=== PATIENT | male | born 1965 | race Caucasian/White ===

== ENCOUNTER 2017-07-21 09:08 | Day surgery (SDC) | payer MEDICAID, SELFPAY ==
[2017-07-21 09:24] VITALS: BP 127/81; PULSE 65; RESP 16; TEMP 36.8; O2SAT 97; BMI 31.4
--- NOTE | 2017-07-21 10:10 | RAD_ITS ---
XR Hip Unilateral with Pelvis when performed; 1 View INDICATION: RIGHT HIP INJECTION COMPARISON: None TECHNIQUE: 2 fluoroscopic views of a hip in frontal projection FINDINGS: A needle is seen in place and contrast material has been administered into the hip joint. Please see operative report for detail. RAD/Inj/Asp Sunny Jt Should/Hip/Knee IMPRESSION: Intraoperative fluoroscopy for image guidance. 6.8 seconds of fluoroscopy were used. at 0050 Reported and signed by: Radha Bethea MD Electronically Signed: Radha Bethea MD at 23:49 EST Tel , Service support ,
[2017-07-21] MEDS: Bupivacaine 0.25% 30 ML Vial (10:14)
[2017-07-21] MEDS: MethylPREDNISolone Acetate 80 MG/ML Vial (10:14)
[2017-07-21 10:24] VITALS: BP 111/71; BP 127/81; PULSE 65; RESP 16; TEMP 36.9; O2SAT 95
[2017-07-21 10:30] VITALS: BP 118/80; BP 127/81; PULSE 58; RESP 16; O2SAT 97
[2017-07-21 10:35] VITALS: BP 102/76; BP 127/81; PULSE 55; RESP 16; O2SAT 98
[2017-07-21 10:40] VITALS: BP 121/82; BP 127/81; PULSE 51; RESP 16; TEMP 36.8; O2SAT 97
[2017-07-21 11:29] VITALS: BP 127/81
--- NOTE | 2017-07-21 15:41 | OP.PCM_ITS ---
Problem List (1) Primary osteoarthritis of right hip Status: Chronic Report of Operation Date of Procedure: 07/21/17 Pre-Operative Diagnosis: Osteoarthritis of the right hip Post-Operative Diagnosis: Osteoarthritis of the right hip Surgery/Procedure Performed:: Right hip intra-articular steroid injection under fluoroscopy guidance Description of Surgical Findings:: PROCEDURE: Right hip intra-articular steroid injection under fluoroscopy guidance PREOPERATIVE DIAGNOSIS: Osteoarthritis of the right hip POSTOPERATIVE DIAGNOSIS: Osteoarthritis of the right hip ANESTHESIA: MAC COMPLICATIONS: None BLOOD LOSS: Minimal PROCEDURE IN DETAIL: History and physical today was reviewed. Risks and benefits of the procedure were explained. The patient understood, agreed to our procedure, and informed consent was obtained. IV inserted per routine protocol. The patient was taken to the operating room, placed in a supine position the right hip area was prepped and draped in a sterile fashion using iodine ?3 under fluoroscopy guidance AP view of the right hip joint was visualized the skin and subcutaneous tissue and size approximately 3 cc of 1% lidocaine using a 25- gauge regular needle approximately 3 cm cephalad to the right greater trochanter under direct visualization fluoroscopy using a 22-gauge 3-1/2 inch spinal needle the needle passed through the skin under direct visualization fluoroscopy in a lateral view tip of the needle was then maneuver and directed towards the superiormost aspect of the hip joint once the tip of the needle was at the vicinity of the joint after negative aspiration for blood positive aspiration of synovial fluid a total of 1 cc of contrast were injected to confirm correct placement of the needle as well as halo spread around the hip joint after repeated negative aspiration and confirmation AP as well as oblique view a total of 10 cc of preservative-free 0.25% Marcaine with 80 mg of Depo- Medrol was injected easily. The needles were then removed intact. The patient experienced no signs or symptoms intrathecal, intravascular injection. The patient experienced no paraesthesia. The procedure was completed without any apparent difficult, any complication. The patient appeared to tolerate well. ASSESSMENT AND PLAN: This is a 52-year-old male with osteoarthritis of the right hip status post right hip intra-articular steroid injection under fluoroscopy guidance. The patient will continue his current medications. The patient will follow in approximately 2 weeks for reevaluation.
== END 2017-07-21 11:30 | disposition home or self-care (01) ==
LOC: SDC 09:09 → AC 09:09
PROVIDERS: Visit Provider Anesthesiology Pain Medicine
PROC: 3E0U3GC Introduction of Other Therapeutic Substance into Joints, Percutaneous Approach (ICD-10-PCS; CPT 20610; principal; 2017-07-21 10:05)
DX: M16.11 Unilateral primary osteoarthritis, right hip (principal); M51.16 Intervertebral disc disorders with radiculopathy, lumbar region; M47.26 Other spondylosis with radiculopathy, lumbar region; M51.36 Other intervertebral disc degeneration, lumbar region; M43.16 Spondylolisthesis, lumbar region; M51.34 Other intervertebral disc degeneration, thoracic region; M47.817 Spondylosis without myelopathy or radiculopathy, lumbosacral region; M47.894 Other spondylosis, thoracic region; M50.30 Other cervical disc degeneration, unspecified cervical region; M47.812 Spondylosis without myelopathy or radiculopathy, cervical region; M79.1 Myalgia; E78.00 Pure hypercholesterolemia, unspecified; K21.9 Gastro-esophageal reflux disease without esophagitis; Z79.82 Long term (current) use of aspirin; Z79.891 Long term (current) use of opiate analgesic; Z79.899 Other long term (current) drug therapy; Z87.891 Personal history of nicotine dependence
CPT/HCPCS: 20610; 76000; 77002; J7120

== ENCOUNTER → 2017-11-05 10:20 | Outpatient (CLI) | payer MEDICAID, SELFPAY ==
--- NOTE | 2017-11-05 10:20 | DT_ITS ---
This patient was seen during an EMR downtime November 03, 2017 - November 10, 2017. This patient may have a combination of paper and electronic documentation or all paper documentation. All documentation is viewable within the e-chart portion of [employer] for each patient visit.
--- NOTE | 2017-11-05 10:30 | RAD_ITS ---
STUDY: X-RAY - RIGHT SHOULDER REASON FOR EXAM: Pain, no specific injury. TECHNIQUE: 4 view(s) of the shoulder. COMPARISON: None. FINDINGS: Normal glenohumeral articulation. There is mild acromioclavicular arthrosis. Normal acromion. Normal humeral head and visualized proximal humerus. There is calcific tendinitis on the AP view. Normal visualized pulmonary apex. RAD/Shoulder min 2 Views IMPRESSION: Calcific tendinitis. Mild acromioclavicular arthrosis. Electronically Signed: Kael Robledo MD at 10:32 EDT Tel , Service support ,
== END ==
PROVIDERS: Visit Provider Nurse Practitioner Family
DX: M25.511 Pain in right shoulder (principal)
CPT/HCPCS: 73030

== ENCOUNTER → 2018-02-11 12:06 | Outpatient (CLI) | payer MEDICAID, SELFPAY ==
--- NOTE | 2018-02-11 12:21 | MRI_ITS ---
STUDY: MRI RIGHT SHOULDER REASON FOR EXAM: Male, 52 years old. Right shoulder pain. TECHNIQUE: Standardized fat and water weighted pulse sequences were obtained in all 3 orthogonal planes. COMPARISON: None. FINDINGS: There is supraspinatus tendinosis with tendon attrition, but without a demonstrated supraspinatus tendon tear. There is a chronic full-thickness tear of the infraspinatus tendon measuring approximately 1.2 x 1.5 cm. Normal subscapularis tendon. Normal teres minor tendon. Normal supraspinatus muscle. There is greater than a 50% fatty muscular atrophy of the infraspinatus muscle (Goutallier Stage IV). Normal subscapularis muscle. Normal teres minor muscle. Normal glenohumeral articulation. Normal humeral head and visualized proximal humerus. Normal biceps labral complex. Normal intracapsular long biceps tendon. Normal labrum. Normal capsulo- ligamentous complex. Normal rotator interval. There is severe hypertrophic osteoarthritis of the acromioclavicular articulation with indentation of the subjacent supraspinatus musculotendinous junction. There is a Type II morphology (curved), with a neutral orientation. There is no subacromial-subdeltoid bursal fluid. Normal visualized coracohumeral and coracoacromial ligaments. Normal quadrilateral space. Normal axillary space. Normal deltoid muscle. Normal trapezius muscle. MRI/Upper Ext Joint Only(Routine) IMPRESSION: 1. Supraspinatus tendinosis with attrition. 2. Chronic full thickness infraspinatus tendon tear with muscle atrophy. 3. Hypertrophic acromioclavicular osteoarthrosis. Electronically Signed: Hannah Priest MD at 16:58 EDT Tel , Service support ,
== END ==
PROVIDERS: Visit Provider Nurse Practitioner Family
DX: M25.511 Pain in right shoulder (principal)
CPT/HCPCS: 73221

== ENCOUNTER → 2018-03-31 13:58 | Outpatient (CLI) | payer MEDICAID, SELFPAY ==
--- NOTE | 2018-03-31 14:00 | RAD_ITS ---
STUDY: X-RAY - RIGHT SHOULDER REASON FOR EXAM: Shoulder pain. TECHNIQUE: 3 view(s) of the shoulder. COMPARISON: Radiographs 11/05/2017. FINDINGS: Normal glenohumeral articulation. There is mild acromioclavicular arthrosis. Normal acromion. Normal humeral head and visualized proximal humerus. There is calcific tendinitis without interval change. Normal visualized pulmonary apex. RAD/Shoulder min 2 Views IMPRESSION: Calcific tendinitis without interval change. Mild acromioclavicular arthrosis. Electronically Signed: Kael Robledo MD at 14:45 EDT Tel , Service support ,
== END ==
PROVIDERS: Referring Provider Orthopaedic Surgery; Visit Provider Orthopaedic Surgery
DX: M25.511 Pain in right shoulder (principal)
CPT/HCPCS: 73030

== ENCOUNTER 2018-05-27 16:24 | Emergency (ER) | payer MEDICAID, SELFPAY ==
[2018-05-27 16:25] VITALS: BP 131/81; PULSE 86; RESP 16; TEMP 36.1; O2SAT 97; BMI 31.7
--- NOTE | 2018-05-27 16:43 | ED.RN ---
PT STATES THAT HE IS HAVING CP, EKG OBTAINED IN TRIAGE.
--- NOTE | 2018-05-27 17:53 | EKG12_ITS ---
Test Reason : CP Blood Pressure : / mmHG Vent. Rate : 060 BPM Atrial Rate : 060 BPM P-R Int : 132 ms QRS Dur : 086 ms QT Int : 392 ms P-R-T Axes : 039 -19 042 degrees QTc Int : 392 ms Normal sinus rhythm Normal ECG Confirmed by AIDA HAYNES, ITZEL ([id number]), field map editor BRIDGET VARGHESE ([id number]) on 06/01/2018 1:08:06 PM Referred By: SKINNY Confirmed By:ITZEL PARRA MD
--- NOTE | 2018-05-27 17:53 | CT_ITS ---
STUDY: CT ABDOMEN AND PELVIS WITH CONTRAST REASON FOR EXAM: Male, 53 years old. Left abdominal pain RADIATION DOSAGE (If Supplied By Facility): CTDIvol = ( 16.61 ) mGy, DLP = ( 1247.70 ) mGycm TECHNIQUE: Transaxial images were obtained from the dome of the diaphragm to the symphysis pubis without oral contrast. 100ml ml of Isovue 300 contrast was administered. Sagittal and coronal images were reconstructed. Individualized dose optimization techniques were used for this CT. COMPARISON: None. FINDINGS: The visualized lung bases are unremarkable. The visualized portions of the heart are within normal limits. Multiple subcentimeter cysts are noted in the liver. Normal gallbladder and extrahepatic biliary system. Normal spleen. Normal pancreas. Normal bilateral adrenal glands. Up to 3 mm nonobstructive stones in the right kidney. Up to 4 mm nonobstructive upper pole stones are noted in the left kidney. Normal visualized stomach. Normal small intestine. Fecal retention in the colon. The appendix is visualized and appears normal. Normal abdominal aorta. Normal inferior vena cava. Subcentimeter nodes in the retroperitoneum. Normal urinary bladder. Fatty density at the right inguinal canal. Normal abdominal wall. Mild degenerative vertebral changes. Grade 1 spondylolisthesis and bulging disc at L3-4. Spondylolysis at L3. CT/Abdomen/Pelvis WITH Contrast IMPRESSION: Probable nonobstructing renal stones bilaterally. Fecal retention in the colon. Subcentimeter retroperitoneal nodes. Fatty density at the right inguinal canal. Hepatic cysts. Electronically Signed: Patric Main DO at 20:31 EST Tel [phone], Service support ,
--- NOTE | 2018-05-27 17:55 | ED.VISSUMM ---
- ER Visit Summary Date of Service: 05/27/18 Chief Complaint: Abdominal pain History of Present Illness: The patient is a 53 M who presents for abdominal pain for 2 months. Patient has been having abdominal pain in the left upper quadrant that radiates into the left chest. It is aching and is gradually worsened. For the last 2 weeks it is acutely worsened. Patient denies fever, vomiting, nausea, diarrhea or urinary symptoms. He has felt woozy for 1 month and was seen in pulmonary twice, diagnosed with a sinus infection, and has had 2 rounds of antibiotics and steroids without improvement. He felt woozy since this morning, stating he is having difficulty walking down the [place]. He is on medications for chronic back pain. Has a history of heart catheterization with a 40% lesion. Physical Examination: Vital signs: afebrile, hemodynamically stable, no hypoxia on room air General: well nourished, well developed, in no distress Skin: warm, dry, no rash, no pallor HEENT: normocephalic and atraumatic; PERRL, EOMI, moist mucous membranes Cardiovascular: regular rate and rhythm without murmurs, no peripheral edema, 2+ pulses all distal extremities Respiratory: No increased work of breathing, lungs are clear to auscultation bilaterally, no rales, rhonchi or wheezing no chest wall tenderness, no rash Abdominal: Abdomen is soft, tender in the left upper quadrant with normoactive bowel sounds, no guarding or rebound, no masses MSK: Moves all extremities, no deformities, normal strength Neuro: Awake and alert, oriented ?4. No facial droop, sensation and motor function intact and symmetric Test Results: Abnormal Lab Results 05/27/18 05/27/18 05/27/18 17:55 17:55 18:10 WBC 7.8 RBC 5.05 Hgb 14.9 Hct 45.2 MCV 89.5 MCH 29.5 MCHC 33.0 RDW 16.1 H RDW Differential 52.0 H Plt Count 191 MPV 10.8 Immature Gran % (Auto) 0.400 Neut % (Auto) 66.6 Lymph % (Auto) 18.7 L Thurston % (Auto) 11.9 H Eos % (Auto) 2.1 Baso % (Auto) 0.3 Absolute Neuts (auto) 5.2 Absolute Lymphs (auto) 1.45 Total Counted Not Reportable Sodium 145 Potassium 4.1 Chloride 111 H Carbon Dioxide 28.0 Anion Gap 6 BUN 29 H Creatinine 0.90 Estim Creat Clear Calc 97.10 Est GFR (MDRD) Af Amer 114 Est GFR (MDRD) Non-Af 94 BUN/Creatinine Ratio 32.1 H Glucose 109 H Lactic Acid Calcium 8.1 L Total Bilirubin 0.30 AST 18 ALT 27 Alkaline Phosphatase 121 H Troponin I < 0.015 Total Protein 6.0 L Albumin 3.1 L Globulin 2.9 Albumin/Globulin Ratio 1.1 Lipase 177 Urine Color Yellow Urine Clarity Sl. Cloudy Urine pH 5.0 Ur Specific [place] 1.020 Urine Protein 15 H Urine Glucose (UA) Normal Urine Ketones Negative Urine Occult Blood 25 H Urine Nitrite Negative Urine Bilirubin Negative Urine Urobilinogen Normal Ur Leukocyte Esterase Negative Urine RBC 5-10 SEEN Urine WBC 0-5 SEEN Ur Squamous Epith Cells 0-5 SEEN Urine Bacteria 0 SEEN Urine Mucus 1+ 05/27/18 18:18 WBC RBC Hgb Hct MCV MCH MCHC RDW RDW Differential Plt Count MPV Immature Gran % (Auto) Neut % (Auto) Lymph % (Auto) Thurston % (Auto) Eos % (Auto) Baso % (Auto) Absolute Neuts (auto) Absolute Lymphs (auto) Total Counted Sodium Potassium Chloride Carbon Dioxide Anion Gap BUN Creatinine Estim Creat Clear Calc Est GFR (MDRD) Af Amer Est GFR (MDRD) Non-Af BUN/Creatinine Ratio Glucose Lactic Acid 1.0 Calcium Total Bilirubin AST ALT Alkaline Phosphatase Troponin I Total Protein Albumin Globulin Albumin/Globulin Ratio Lipase Urine Color Urine Clarity Urine pH Ur Specific [place] Urine Protein Urine Glucose (UA) Urine Ketones Urine Occult Blood Urine Nitrite Urine Bilirubin Urine Urobilinogen Ur Leukocyte Esterase Urine RBC Urine WBC Ur Squamous Epith Cells Urine Bacteria Urine Mucus Clinical Impression(s) from Imaging Studies Abdomen/Pelvis CT 05/27/18 17:53 IMPRESSION: Probable nonobstructing renal stones bilaterally. Fecal retention in the colon. Subcentimeter retroperitoneal nodes. Fatty density at the right inguinal canal. Hepatic cysts. Electronically Signed: Patric Main DO at 20:31 EST Tel [phone], Service support , Medications Given Discontinued Medications Sodium Chloride () 1,000 mls @ 1,000 mls/hr IV .Q1H ONE Stop: 05/27/18 18:52 Last Admin: 05/27/18 18:19 Dose: 1,000 mls/hr Emergency Department Course and Treatment: Patient was offered and declined pain medications. He presents for evaluation of acute worsening of chronic abdominal pain. Chest pain workup was included since patient states his pain is radiating into the left chest. EKG showed a sinus rhythm with no ischemia or ectopy. Troponin negative. Patient's symptoms have been going on for 2 months, worse for 3 days, thus if this were cardiac I would expect an elevation of the troponin or EKG changes. The patient had no leukocytosis. No electrolyte derangements, hepatic dysfunction or elevated lipase. Patient did have mild dehydration. Urine was negative for infection. Lactate normal. CT the abdomen and pelvis was performed that was remarkable for fecal retention. Otherwise no acute process noted that would explain patient's symptoms. Patient continued to have symptoms, and was offered a 3 hr EKG and troponin rule-out. Patient declined further lab work. A repeat EKG was unchanged from the initial one. We discussed a bowel regimen for the constipation, and patient declined any prescriptions for constipation. Patient has no findings that are concerning for an acute process that would require further emergent evaluation or admission. Patient given follow-up with a primary care provider. Discharged home. Treatment Plan: [] Disposition: [] Impression: Acute on chronic abdominal pain, constipation This note was generated with [employer] dictation software. It may contain incorrect words, spelling, and punctuation that were not noted in review of the chart prior to signing ED Disposition - Plan for ED Patient: Disposition: Home or Assisted Living Chief Complaint: Abd Pain Instructions: ED Constipation, ED Abdominal Pain Unkn Cause Male Referrals: Joe Pruitt MD [STAFF PHYSICIAN] - As soon as possible Additional Instructions: Please follow-up with a primary care doctor for further evaluation of your ongoing abdominal pain. Your scan of your abdomen did show constipation. You were offered a bowel regimen and stated you had one at home already. Please use the stool softener and laxative at home to help with constipation. Miralax is a good option. If you have any worsening of your condition or any new concerning symptoms, please return immediately to the emergency department for another evaluation.
[2018-05-27] MEDS: 0.9% Normal Saline 1,000 ML 1000 ML IV (18:19)
[2018-05-27 18:22] LABS: Bacteria 0 SEEN /hpf (None Seen)
[2018-05-27 18:27] LABS: Color, Urine Yellow (Yellow); Glucose, Dipstick Normal (Normal); Ketone-Dipstick Negative (Negative); Leukocyte Esterase-Dipstick Negative /ul (Negative); Nitrite-Dipstick Negative (Negative); Occult Blood-Urine 25 /ul (Negative); Protein-Dipstick 15 mg/dl (Negative); Urine Bilirubin Dipstick Negative (Negative); Urine Clarity Sl. Cloudy (Clear); Urine Urobilinogen Normal (Normal)
[2018-05-27 18:33] LABS: Absolute Lymphocyte Count 1.45 X10^3/ul (0.83-4.51); Absolute Neutrophil Count 5.2 X10^3/uL (2.0-7.7); Basophil# 0.02 X10^3/uL; Basophil% 0.3 % (0-1); Eosinophil# 0.16 X10^3/uL; Eosinophils% 2.1 % (0-5); Hematocrit 45.2 % (40-54); Hemoglobin 14.9 g/dl (13.0-16.5); Lymphocyte # 1.45 X10^3/ul (4.0); Lymphocyte % 18.7 % (19-41); Mean Corpuscular Hgb 29.5 pg (27.0-32.0); Mean Corpuscular Volume 89.5 fL (80-94); Mean Platelet Vol. 10.8 fl (6.2-12.0); Monocyte# 0.92 X10^3/uL; Monocyte% 11.9 % (0-10); Neutrophil # 5.18 X10^3/uL (2.7-7.7); Neutrophil % 66.6 % (47-70); Platelet Count 191 K/mm3 (150-450); RBC Distribution Width CV 16.1 % (11.6-14.6); Red Blood Count 5.05 M/mm3 (4.6-6.2); White Blood Count 7.8 K/mm3 (4.4-11.0)
[2018-05-27 18:35] LABS: ALB/GLOB Ratio 1.1 RATIO (0.9-2.4); AST(SGOT) 18 U/L (15-37); Alanine Aminotransfer ALT/SGPT 27 U/L (16-61); Albumin, Serum 3.1 g/dL (3.2-5.0); Alkaline Phosphatase 121 U/L (45-117); Anion Gap 6 (5-15); BUN 29 mg/dL (7-18); BUN/Creat Ratio 32.1 RATIO (10-20); Calcium,Total 8.1 mg/dL (8.5-10.1); Chloride 111 mmol/L (98-107); EST Glomerular Filtration Rate 94 mL/min (>60); Est Glom Filt Rate - Afr Amer 114 mL/min (>60); Globulin 2.9 g/dL (2.2-4.2); Glucose 109 mg/dL (74-106); Lipase 177 U/L (73-393); Potassium 4.1 mmol/L (3.5-5.1); Sodium Level 145 mmol/L (136-145)
[2018-05-27 18:37] LABS: Mucous, Urine 1+ /hpf (<or=2+); Red Blood Cells-Urine 5-10 SEEN /hpf (0-5); Squamous Epithelial Cells - UA 0-5 SEEN /hpf (0-5); White Blood Cells 0-5 SEEN /hpf (0-5)
[2018-05-27 18:37] LABS: POSITIVE COUNT NO; POSITIVE DIFFERENTIAL NO; POSITIVE MORPHOLOGY NO
[2018-05-27 19:11] VITALS: BP 138/98; PULSE 60; RESP 14; O2SAT 97
[2018-05-27 20:56] VITALS: BP 123/79; PULSE 65; RESP 21; O2SAT 94
--- NOTE | 2018-05-27 22:07 | EKG12_ITS ---
Test Reason : ABDOMINAL PAIN Blood Pressure : / mmHG Vent. Rate : 059 BPM Atrial Rate : 059 BPM P-R Int : 134 ms QRS Dur : 090 ms QT Int : 380 ms P-R-T Axes : 051 -19 043 degrees QTc Int : 376 ms Sinus bradycardia Otherwise normal ECG Confirmed by AIDA HAYNES, ITZEL ([id number]), supervising editor trailer BRIDGET VARGHESE ([id number]) on 06/01/2018 1:08:28 PM Referred By: HARRIET Confirmed By:ITZEL PARRA MD
[2018-05-27] MEDS: Ketorolac 30 MG/ML Syringe IV (22:14)
[2018-05-27 22:17] VITALS: BP 118/72; PULSE 60; RESP 18; O2SAT 97
--- NOTE | 2018-05-27 22:19 | ED.RN ---
PT REPORTS TO THIS RN THAT HE DOES NOT WANT TO HAVE A REPEAT TROPONIN. HE REPORTS I HAVE BEEN HERE A LONG TIME AND I AM READY TO LEAVE . PT AGREES TO REPEAT EKG. DR. BABB INFORMED THAT PT IS READY TO LEAVE. AWAITING PAPERWORK. PT AGREES TO TORADOL, SEE MAR.
--- NOTE | 2018-05-27 22:25 | ED.DEP ---
ED Disposition - Plan for ED Patient: Disposition: Home or Assisted Living Chief Complaint: Abd Pain Instructions: ED Abdominal Pain Unkn Cause Male, ED Constipation Referrals: Joe Pruitt MD [STAFF PHYSICIAN] - As soon as possible Additional Instructions: Please follow-up with a primary care doctor for further evaluation of your ongoing abdominal pain. Your scan of your abdomen did show constipation. You were offered a bowel regimen and stated you had one at home already. Please use the stool softener and laxative at home to help with constipation. Miralax is a good option. If you have any worsening of your condition or any new concerning symptoms, please return immediately to the emergency department for another evaluation.
[2018-05-27 22:32] VITALS: BP 125/77; PULSE 62; RESP 22; O2SAT 98
== END 2018-05-27 22:34 | disposition home or self-care (01) ==
PROVIDERS: Emergency Provider Emergency Medicine
DX: K59.00 Constipation, unspecified (principal); R10.12 Left upper quadrant pain; M54.9 Dorsalgia, unspecified; G89.29 Other chronic pain; E86.0 Dehydration; Z79.82 Long term (current) use of aspirin; Z79.899 Other long term (current) drug therapy
CPT/HCPCS: 74177; 80053; 81001; 83605; 83690; 84484; 85025; 93005; 96361; 96374; 99284; J7030; Q9967; A4216

== ENCOUNTER → 2018-08-19 09:54 | Outpatient (CLI) | payer MEDICAID, SELFPAY ==
[2018-07-06 15:28] VITALS: BMI 31.7
--- NOTE | 2018-08-19 09:59 | MRI_ITS ---
STUDY: MRI LUMBAR SPINE WITHOUT CONTRAST REASON FOR EXAM: Male, 53 years old. BACK AND LEFT LEG PAIN -- NKI, pain x 2 years, no prev lumbar surg, GB removed 08/17/18. TECHNIQUE: Standardized fat and water weighted pulse sequences were obtained in the sagittal and axial planes. COMPARISON: None FINDINGS: T12-L1: There is minimal disc space narrowing and endplates spondylosis. There is a small left paracentral extrusion with moderate left lateral recess narrowing. There is mild central canal stenosis. There is no foraminal stenosis. Normal lumbar lordosis. There is no substantial scoliosis. Normal conus medullaris that terminates at the L1 L1-2: There is minimal disc space narrowing and endplate spondylosis. There is no significant disc herniation, central canal or foraminal stenosis. L2-3: There is minimal disc space narrowing and endplate spondylosis. There is no significant disc herniation, central canal or foraminal stenosis. L3-4: There is moderate disc space narrowing and endplates spondylosis. There is severe facet arthropathy with 3 x 6 mm right anterior facet cyst. There is grade 1 anterolisthesis with disc bulging. Findings results in severe central canal stenosis, severe right and moderate left foraminal stenosis. L4-5: There is mild disc space narrowing and endplates spondylosis. There is a mild disc bulge and small left paracentral protrusion with mild left lateral recess narrowing. There is mild central canal stenosis. There is no foraminal stenosis. There is mild facet arthropathy L5-S1: There is moderate disc space narrowing and endplates spondylosis. There is a mild disc bulge asymmetric to the left with moderate left foraminal stenosis. There is no significant central canal or right foraminal stenosis. There is mild facet arthropathy Normal visualized sacral ala. Normal visualized paraspinous soft tissue structures. MRI/Spine Lumbar (Routine) IMPRESSION: T12/L1: Small left paracentral extrusion with moderate left lateral recess narrowing. L3/L4: Severe central canal stenosis. Small right anterior facet cyst. Grade 1 anterolisthesis. Severe right and moderate left foraminal stenosis. L5/S1: Moderate left foraminal stenosis. Electronically Signed: Letitia Alaniz MD at 9:52 EDT Tel , Service support ,
== END ==
PROVIDERS: Family Provider Nurse Practitioner Family; PCP Nurse Practitioner Family; Referring Provider Anesthesiology Pain Medicine; Visit Provider Anesthesiology Pain Medicine
DX: M54.5 Low back pain (principal); M79.605 Pain in left leg
CPT/HCPCS: 72148

== ENCOUNTER → 2018-09-03 16:14 | Outpatient (CLI) | payer MEDICAID, SELFPAY ==
[2018-09-03 13:50] VITALS: BMI 31.7
[2018-09-03 16:22] LABS: Bacteria 0 SEEN /hpf (None Seen); Red Blood Cells-Urine 0 SEEN /hpf (0-5)
[2018-09-03 16:35] LABS: Color, Urine Yellow (Yellow); Glucose, Dipstick Normal (Normal); Ketone-Dipstick Negative (Negative); Leukocyte Esterase-Dipstick 25 /ul (Negative); Nitrite-Dipstick Negative (Negative); Occult Blood-Urine Negative /ul (Negative); Protein-Dipstick Negative (Negative); Urine Bilirubin Dipstick Negative (Negative); Urine Clarity Clear (Clear); Urine Urobilinogen Normal (Normal)
[2018-09-03 17:00] LABS: Mucous, Urine 2+ /hpf (<or=2+); Squamous Epithelial Cells - UA 0-5 SEEN /hpf (0-5); White Blood Cells 0-5 SEEN /hpf (0-5)
== END ==
PROVIDERS: Referring Provider Physician Assistant; Visit Provider Physician Assistant
DX: R10.30 Lower abdominal pain, unspecified (principal); R30.0 Dysuria
CPT/HCPCS: 81001

== ENCOUNTER 2018-10-16 09:33 | Day surgery (SDC) | payer MEDICAID, SELFPAY ==
[2018-09-03 13:50] VITALS: BMI 31.7
[2018-10-06 14:20] VITALS: BMI 31.7
--- NOTE | 2018-10-06 16:18 | HP_ITS ---
Intake Vital Signs 10/06/18 Body Mass Index (BMI) 31.7 Intake Visit Reasons: RIGHT SHOULDER Allergies cyclobenzaprine [From Flexeril] Allergy (Mild, Verified 09/03/18 13:50) flushed acetaminophen [From Vicodin] Adverse Reaction (Verified 09/03/18 13:50) Nausea hydrocodone [From Vicodin] Adverse Reaction (Verified 09/03/18 13:50) Nausea Medications Meloxicam 15 mg PO DAILY 02/23/17 [History Confirmed 05/27/18] aspirin 81 mg chewable tablet 81 mg PO DAILY 06/05/17 [History Confirmed 05/27/18] gabapentin 300 mg capsule 300 mg PO TID 06/05/17 [History Confirmed 05/27/18] baclofen 10 mg tablet 10 mg PO TID 03/31/18 [History Confirmed 05/27/18] diclofenac 1 % topical gel 2 g TOPICAL ONCE 03/31/18 [History Confirmed 05/27/18] Omeprazole 40 mg PO DAILY 05/27/18 [History Confirmed 05/27/18] PFSH Medical History Heartburn (Acute) Surgical History h/o gallbladder removed (Acute) Heart Catheterization (Inactive) finger tendon (Inactive) Family History Father Heart disease Social History Smoking Status: Former smoker HPI RIGHT SHOULDER: Surgical H&P: Yes Details: Parts of this documentation were recorded by a scribe, this documentation accurately reflects the service provided and the decisions made by me, Desirae Marroquin, 10/06/18 1103. SHO VILLATORO is a 53 year old M here today to sign consent for right shoulder RTC repair. Patient states that he is still having pain 9/10 in his right shoulder and is having weakness and limited ROM. Patient has been using his arm and digging the past week. Patient had his gallbladder removed on 09/17/18. Wants to also talk about his left knee and possibly getting an injection. ROS Const Reports system reviewed and no additional complaints, except as docu Eyes Reports system reviewed and no additional complaints, except as docu ENT Reports system reviewed and no additional complaints, except as docu Card Reports system reviewed and no additional complaints, except as docu Resp Reports system reviewed and no additional complaints, except as docu GI Reports system reviewed and no additional complaints, except as docu Reports system reviewed and no additional complaints, except as docu Musc Reports as per HPI Skin/Breast Reports system reviewed and no additional complaints, except as docu Neuro Yes system reviewed and no additional complaints, except as docu Psych Reports system reviewed and no additional complaints, except as docu Endo Reports system reviewed and no additional complaints, except as docu Davide/Lymph Reports system reviewed and no additional complaints, except as docu Aller/Immun Reports system reviewed and no additional complaints, except as docu Ortho Exam Right Shoulder Testing: Positive TTP Biceps and empty can; negative TTP AC Joint, AROM-Forward Elevation 0-180 or AROM-External Rotation at side 0-60 Assessment & Plan Problems 1. Rotator cuff insufficiency of right shoulder M25.311 2. Subacromial impingement of right shoulder M75.41 3. Biceps tendonosis of right shoulder M67.911 Plan Reviewed the risk of infection with an injection too close to surgery, we can do the knee injection three weeks post shoulder surgery. Reviewed the pre-operative plans with the patient. Risks and benefits of the procedure were fully explained, including but not limited to infection, neurovascular injury, continued pain, arthritis, stiffness, need for further surgery, re-injury, DVT, PE, general risks of anesthesia, and loss of limb or life. The patient understands all the risks and does wish to proceed with written consent. Follow up post op or sooner if pain, swelling, numbness or associated symptoms, or concerns develop. All questions answered. Patient in agreement of plan. Coding Level of Care Code Off vis,est,level 4 Diagnoses Rotator cuff insufficiency of right shoulder M25.311 Subacromial impingement of right shoulder M75.41 Biceps tendonosis of right shoulder M67.911 10/06/18 2188 <Electronically signed by Desirae Marroquin DO> Date Desirae Marroquin DO I have re-examined the patient. There are no clinical changes since date of exam.
[2018-10-16] VITALS (9 sets, daily range): BP systolic 113–130; BP diastolic 70–90; PULSE 63–78; RESP 16–20; TEMP 35.6–37; O2SAT 92–98; BMI 32.1
--- NOTE | 2018-10-16 11:22 | VDLE_ITS ---
Reason For Study: LLE pain RIGHT LEFT CFV is compressible, spontaneous, phasic, GSV is normal. competent and demonstrates normal CFV is compressible, spontaneous, phasic, augmentation. competent, and demonstrates normal Procedure augmentation. Exam performed portable in AC Dept. FV is compressible, spontaneous, phasic, The exam was diagnostic. competent and demonstrates normal A preliminary report was called and/or faxed augmentation. to Dr. Marroquin and RN/AC. POP V is compressible, spontaneous, phasic, competent and demonstrates normal augmentation. T/P Trunk is compressible. PTV is compressible. LT PerV is compressible. Interpretation Summary There is no evidence of left lower extremity deep vein thrombosis. Left greater saphenous vein appears patent and compressible segmentally. Normal flow patterns right common femoral vein Ordering Physician: Desiare Marroquin Referring Physician: Erica Junior Performed By: Cindy Jenkins RDCS, RVT
--- NOTE | 2018-10-16 11:30 | TESH_PTH ---
PATIENT: SHO VILLATORO Jr. LOC: [facility] [place] U#:[id number] AGE/SX: 53/M ROOM: RE10/16/[address]: Dr. Desirae Marroquin DO : 1965 BED: DIS: 10/16/2018 SPEC #: [id number] RECD: 10/16/18 16:14 STATUS: ZEN DAWIT #: [id number] AMBROSE: 10/16/18 11:[address]: Desirae Marroquin DEPT: SURGICAL PATHOLOGY RECD BY: Jc Samano ENTERED: 10/19/18 10:24 SP TYPE: TENDON OTHR DR: Erica Junior, STOVE MOUNTER-C Tissues: Tendon and tendon sheath, NOS Procedures: Surgery Specimen Level III HEADER OPERATION: Arthroscopy, shoulder rotator cuff repair, subacromial decomp PRE-OP DIAGNOSIS: Rotator cuff insufficiency of right shoulder M25.311; subacromial impingement of right shoulder M75.41; biceps tendinosis of right shoulder M67.911 TISSUE SUBMITTED: Bicep tendon MICROSCOPIC DIAGNOSIS Bicep tendon, rotator cuff repair: Fibrotendinous tissue with focal degenerative change. CE:yeni 10/20/18 MICROSCOPIC DESCRIPTION Slides are reviewed. GROSS DESCRIPTION Received in fixative is one container labeled with the patient's name and designated biceps tendon. The specimen consists of elongated fragments of indurated light kinney soft tissue consistent with tendon measuring 4.5 x 1 x 0.2 cm. The specimen is sectioned and totally submitted in one cassette. / AM:yeni 10/19/18 TC:5 CPT: 82133
--- NOTE | 2018-10-16 12:40 | PCM.DC.ORTHO ---
Discharge Diet: No Restrictions - keep dressing in place and change on pod 5 and apply bandaids to incision sites, call with concerns, sling at all times unless showering, move hand as tolerated Discharge Activity: May Not Drive May shower in (days): 1 Ice area for (Minutes): 20 - Every hour while awake. Weight Bearing Status: Weight bearing as tolerated Keep extremity elevated above heart level: Operative Extremity Call your doctor if your incision/area has: Continuous Slow Oozing, Sudden Increased Bleeding, Increased Pain/ Swelling, Increased Redness, Foul Smelling Discharge Call your doctor if you observe: Fever of 101 or Higher, Coldness, Increased Pain, Numbness or Tingling, Change in Color, Calf discomfort Allergies/Adverse Reactions: Allergies cyclobenzaprine [From Flexeril] Allergy (Mild, Verified 10/07/18 08:47) flushed hydrocodone [From Vicodin] Adverse Reaction (Verified 10/07/18 08:47) Nausea Medications to take at Discharge Meloxicam 15 mg PO DAILY 02/23/17 aspirin 81 mg chewable tablet 81 mg PO PRN PRN 06/05/17 gabapentin 300 mg capsule 300 mg PO TID 06/05/17 baclofen 10 mg tablet 10 mg PO TID 03/31/18 diclofenac 1 % topical gel 2 g TOPICAL DAILY 03/31/18 Omeprazole 40 mg PO DAILY 05/27/18 Hydrocodone Bitart/Apap 5-325 [[place]ont 5MG-325MG] 1 - 2 tablet PO Q6H PRN PRN 5 Days #40 tablet 10/16/18 The following prescriptions were given: Hydrocodone Bitart/Apap 5-325 [Be[place]ont 5MG-325MG] 1 - 2 tablet PO Q6H PRN PRN 5 Days #40 tablet PRN Reason: Pain Primary Care Physician: Erica Juniro, SAMUEL-C [Primary Care Provider] - Test Results: Test results from this visit will be discussed in further detail at your follow-up appointment, if applicable. Please Follow Up With: Desirae Marroquin, - [phone]
--- NOTE | 2018-10-16 12:42 | PCM.OPRPT ---
Report of Operation Date of Procedure: 10/16/18 Pre-Operative Diagnosis: right shoulder rotator cuff tear, impingment syndrome, biceps tendinosis Post-Operative Diagnosis: same Surgery/Procedure Performed:: sars, rc repair, sad/acrmioplasty, open subpec biceps tenodesis senior it auditor: Franco Fletcher Type of Anesthesia:: General/Regional Anesthesiologist: Mio Franklin Estimated Blood Loss (mL): none Fluids Replaced: see chart Description of Procedure: Preop note Patient with right shoulder pain MRI confirms rotator cuff tear biceps tendinosis and impingement. Patient failed conservative treatment and like to proceed with right shoulder arthroscopy repair is indicated. Risks benefits and alternatives surgery discussed with patient. Risks including but not limited to blood loss, blood clot, infection, neurovascular, failure procedure, loss of life and loss of limb. Patient is aware like to proceed with right shoulder arthroscopy repair is indicated. Operative note Patient seen and examined preoperative holding area right shoulder was marked. Patient brought to the operating placed supine on the operating table. Signing, anesthesia, antibiotics were administered. The right arm was prepped and draped in usual sterile fashion after. After patient was placed in beachchair. SCDs placed on his bilateral lower extremity and all bony prominences well-padded. Please note that we did check blood pressure long-term through. Beachchair positioning it was stable throughout. Again the right arm was prepped and draped in usual sterile fashion. We marked out our bony landmarks for portal placement. Timeout was performed. We then insufflated the glenohumeral joint from the posterior aspect had good return from the spinal needle. Created our in our posterior portal with 11 blade. Begin our diagnostic arthroscopy. The rotator cuff had a liftoff sign on the posterior aspect at that where the infraspinatus and supraspinatus met just on the footprint. The subscap was intact. We then created an anterior portal under direct visualization. We probed the biceps was quite thickened and hyperemic after probing into the joint. We truncated the biceps tendon at its insertion. We gently shaved back to the insertion point to a stable rim. We turned back some of the labrum that was the posterior aspect is a little bit of frayed as well. There are no loose bodies in the inferior recess. We then moved to the subacromial space. Created a lateral portal under direct visualization. Extensive bursitis throughout his entire shoulder muscle most prominent in the posterior recess as well. We were able to palpate some thinning of the tissue laterally he has had about a 50% tear on the bursal side and also extending down to a recessed tear of the infraspinatus that was somewhat attached still on the lateral greater tuberosity but was unstable to probing. Had a U-shaped pattern to the tear was which was completed debrided back any degenerative rotator cuff. We then placed 255 bio composite suture tacks in the medial row so these sequentially anterior to posterior then placed 2 Lateral Row 4.75 swivel locks in standard technique we had good coverage of the footprint at this point please note that prior to placing her to bio composites we did bur to a good bed for healing. We then again after placing her lateral row had good coverage of the footprint there were no dog ears we then irrigated the shoulder with copious muscle sterile saline. We moved to our open subpectoral tenodesis. We spoke resterilized the shoulder waited the allotted minute then used a 15 blade to cut the skin tenotomies to dissect down to the biceps tendon which was then brought out of the incision truncated to its appropriate length whipstitched the and sent the cut and to pathology for further evaluation. We then drilled unicortical he just under the sub-pec we had placed the limbs of the whipstitched tendon throughout the Arthrex pec button this was after drilling and accordingly the pec button was then flipped inside the medullary canal of the humerus. We then used a free needle to sew the limbs to the periosteum down through the biceps tendon. For reinforcement. We then irrigated the incision with copious amounts of sterile saline. The incision was closed with 2 deep 2-0 Vicryl in a running 4-0 Monocryl and the portals were closed with interrupted nylon stitches. The patient tolerated procedure well no comp occasions transferred recovery room in stable condition. Postoperative note Discussed with Pain medication sent to Rufina Millan We will give pictures to patient in 2 weeks Sling at all times Call with increased pain numbness tingling or further issues arise next This note was generated with [employer] dictation software. It may contain incorrect words, spelling, and punctuation that were not noted in checking the note before signing.
[2018-10-16] MEDS: Cefazolin 2 GM in 0.9% Normal Saline 100 ML IV (12:50)
[2018-10-16] MEDS: Mupirocin Ointment 22gm Tube 1 APPLIC (15:13)
== END 2018-10-16 17:48 | disposition home or self-care (01) ==
LOC: SDC 09:35 → AC 09:49
PROVIDERS: Family Provider Nurse Practitioner Family; PCP Nurse Practitioner Family; Referring Provider Orthopaedic Surgery; Visit Provider Orthopaedic Surgery
PROC: (CPT 29827; principal; 2018-10-16 11:10)
DX: M75.101 Unspecified rotator cuff tear or rupture of right shoulder, not specified as traumatic (principal); M75.41 Impingement syndrome of right shoulder; M25.311 Other instability, right shoulder; M67.911 Unspecified disorder of synovium and tendon, right shoulder; M79.605 Pain in left leg; E78.00 Pure hypercholesterolemia, unspecified; Z79.82 Long term (current) use of aspirin; Z79.899 Other long term (current) drug therapy; Z88.5 Allergy status to narcotic agent; Z87.891 Personal history of nicotine dependence
CPT/HCPCS: 23430; 29826; 29827; 64415; 88304; 93971; J7120; C1713; J2405

== ENCOUNTER → 2019-02-09 14:34 | Outpatient (CLI) | payer MEDICAID, SELFPAY ==
[2019-02-09 14:19] VITALS: BMI 32.1
--- NOTE | 2019-02-09 14:36 | RAD_ITS ---
STUDY: X-RAY - LUMBAR SPINE REASON FOR EXAM: Male, 53 years old. Back pain TECHNIQUE: 5 view(s) of the lumbar spine were obtained. COMPARISON: February 23, 2017 FINDINGS: Normal lumbar lordosis. There is no substantial scoliosis. Grade 1 spondylolisthesis at L3-4. Minimal retrolisthesis at L5-S1 There is narrowing of L3-4 and L5-S1 disc spaces with mild endplate spurring. No evidence for acute fracture or subluxation.. The soft tissue structures are unremarkable. There is interval progression of the degenerative change at L3-4 since prior study. RAD/L/S Spine Min 4 Views IMPRESSION: Moderate spondylosis with mild interval progression since prior study. No acute fracture or subluxation Electronically Signed: Charles Vicente MD at 23:01 EDT , Service support ,
--- NOTE | 2019-02-09 14:36 | RAD_ITS ---
STUDY: X-RAY - PELVIS AND RIGHT HIP REASON FOR EXAM: Male, 53 years old. Right hip pain, no injury TECHNIQUE: 3 views of the pelvis and hip. COMPARISON: Prior study of 06/05/2017 FINDINGS: There is a non-specific bowel gas pattern. Normal visualized soft tissue structures. Normal bilateral iliac wings, sacroiliac joints and visualized sacrum. Normal bilateral superior and inferior pubic rami. Normal pubic symphysis. Normal bilateral ischial tuberosities. The right hip appears within normal limits. There are mild degenerative changes of the left hip. RAD/HIP, UNI W/ Pelvis 2-3 Views IMPRESSION: The pelvis and right hip appear within normal limits. There are mild arthritic changes of the left hip. Electronically Signed: Noel Desir MD at 23:58 EDT , Service support ,
== END ==
PROVIDERS: Family Provider Nurse Practitioner Family; PCP Nurse Practitioner Family; Referring Provider Orthopaedic Surgery; Visit Provider Orthopaedic Surgery
DX: M16.11 Unilateral primary osteoarthritis, right hip (principal); M54.5 Low back pain
CPT/HCPCS: 72110; 73502

== ENCOUNTER → 2019-03-09 14:10 | Outpatient (CLI) | payer MEDICAID, SELFPAY ==
[2019-03-09 14:05] VITALS: BMI 32.1
--- NOTE | 2019-03-09 14:16 | RAD_ITS ---
STUDY: X-RAY - LEFT SHOULDER REASON FOR EXAM: Pain. TECHNIQUE: 4 view(s) of the shoulder. COMPARISON: None. FINDINGS: Normal glenohumeral articulation. There is acromioclavicular arthrosis. Normal acromion. Normal humeral head and visualized proximal humerus. The soft tissue structures are unremarkable. Normal visualized pulmonary apex. RAD/Shoulder min 2 Views IMPRESSION: Acromioclavicular arthrosis. Electronically Signed: Kael Robledo MD at 15:04 EDT Tel , Service support ,
== END ==
PROVIDERS: Family Provider Nurse Practitioner Family; PCP Nurse Practitioner Family; Referring Provider Orthopaedic Surgery; Visit Provider Orthopaedic Surgery
DX: M25.512 Pain in left shoulder (principal)
CPT/HCPCS: 73030

== ENCOUNTER → 2019-04-14 13:05 | Outpatient (CLI) | payer MEDICAID, SELFPAY ==
[2019-03-09 14:05] VITALS: BMI 32.1
--- NOTE | 2019-04-14 13:08 | MRI_ITS ---
STUDY: MRI LEFT SHOULDER REASON FOR EXAM: Pain and decreased range of motion for 1.5-2 months, no specific injury. TECHNIQUE: Standardized fat and water weighted pulse sequences were obtained in all 3 orthogonal planes. COMPARISON: Radiographs 03/09/2019. FINDINGS: There is supraspinatus tendinosis, a very small low-grade partial thickness tear of the articular surface of the distal supraspinatus tendon (T2 coronal image 10) measuring 0.2 cm in length, and a small intrasubstance partial thickness tear of the distal supraspinatus tendon at the greater tuberosity insertion (T2 coronal images 11, 12) measuring 0.6 cm in length. Normal infraspinatus tendon. Normal subscapularis tendon. Normal teres minor tendon. Normal supraspinatus muscle. There is a low-grade strain of the infraspinatus musculotendinous junction (T2 coronal images 5-17). Normal subscapularis muscle. Normal teres minor muscle. Normal glenohumeral articulation. There is a small cyst in the greater tuberosity. Normal biceps labral complex. Normal intracapsular long biceps tendon. Normal labrum. Normal capsulo- ligamentous complex. There is acromioclavicular arthrosis with mild hypertrophic changes effacing the subacromial fat (T2 sagittal image 7). There is a Type I morphology (flat undersurface), with a neutral orientation. There is a small volume of subacromial-subdeltoid bursal fluid (T2 coronal images 9-14). Normal visualized coracohumeral and coracoacromial ligaments. Normal deltoid muscle. Normal trapezius muscle. MRI/Upper Ext Joint Only(Routine) IMPRESSION: Very small low-grade articular partial thickness tear, small intrasubstance partial-thickness tear and tendinosis of the supraspinatus tendon. Low-grade strain of the infraspinatus musculotendinous junction. Acromioclavicular arthrosis. Mild subacromial-subdeltoid bursitis. Electronically Signed: Kael Robledo MD at 14:37 EST Tel , Service support ,
== END ==
PROVIDERS: Family Provider Nurse Practitioner Family; PCP Nurse Practitioner Family; Referring Provider Orthopaedic Surgery; Visit Provider Orthopaedic Surgery
DX: S46.002A Unspecified injury of muscle(s) and tendon(s) of the rotator cuff of left shoulder, initial encounter (principal); X58.XXXA Exposure to other specified factors, initial encounter; Y93.9 Activity, unspecified; Y92.9 Unspecified place or not applicable; Y99.9 Unspecified external cause status
CPT/HCPCS: 73221

== ENCOUNTER → 2019-06-08 15:29 | Outpatient (CLI) | payer MEDICAID, SELFPAY ==
[2019-06-08 15:24] VITALS: BMI 32.1
--- NOTE | 2019-06-08 15:30 | RAD_ITS ---
STUDY: X-RAY - RIGHT SHOULDER REASON FOR EXAM: Male, 54 years old. Postoperative evaluation. Pain. TECHNIQUE: 3 view(s) of the shoulder. COMPARISON: None. FINDINGS: Mild osteoarthrosis of the glenohumeral joint. AC joint arthrosis. Normal acromion. Normal humeral head and visualized proximal humerus. Calcific tendinitis. Normal visualized pulmonary apex. 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 Supraspinatus calcific tendinitis. Electronically Signed: Ibrahima Bal MD at 14:21 EST , Service support ,
--- NOTE | 2019-06-08 15:59 | RAD_ITS ---
STUDY: X-RAY - CERVICAL SPINE REASON FOR EXAM: Male, 54 years old. NECK AND RIGHT SHOULDER PAIN TECHNIQUE: 5 view(s) of the cervical spine were obtained. COMPARISON: None FINDINGS: There are degenerative changes of the anterior atlantoaxial articulation. Normal odontoid process. Normal cervical lordosis. There is mild, multi-level endplate spondylosis. There is narrowing of disc space at C5-C6 and C6-C7. Mild neural foraminal encroachment at C3-C4 and C5-C6. The soft tissue structures are unremarkable. There is no demonstrated fracture of the cervical spine. RAD/Cerv Spine 4 or 5 Views IMPRESSION: Spondylosis/degenerative disease with no acute fracture or subluxation. Electronically Signed: Jenny Sagastume MD at 3:08 EST , Service support ,
== END ==
PROVIDERS: Family Provider Nurse Practitioner Family; PCP Nurse Practitioner Family; Referring Provider Orthopaedic Surgery; Visit Provider Orthopaedic Surgery
DX: M25.511 Pain in right shoulder (principal); M79.601 Pain in right arm; M79.89 Other specified soft tissue disorders
CPT/HCPCS: 72050; 73030; 93971

== ENCOUNTER → 2019-06-08 16:18 | Outpatient (CLI) | payer MEDICAID, SELFPAY ==
[2019-06-08 15:24] VITALS: BMI 32.1
--- NOTE | 2019-06-08 16:20 | VDUE_ITS ---
Reason For Study: SWELLING Right Proximal Right jugular vein is spontaneous, widely patent, phasic, with no intraluminal echogenicity noted. Right subclavian vein is spontaneous, widely patent, phasic, with no intraluminal echogenicity noted. Right Lower Arm Right radial vein is compressible. Right ulnar vein is compressible. Right Arm Right axillary vein is spontaneous, patent, phasic, competent, compressible and demonstrates augmentation. Right brachial vein is compressible. Right cephalic vein is compressible. Right basilic vein is compressible. Interpretation Summary No evidence for acute deep venous thrombosis[right] upper extremity with patent and compressible cephalic and basilic veins. Ordering Physician: Desirae Marroquin Performed By: Eduar Lopez RVT ?
== END ==
PROVIDERS: Family Provider Nurse Practitioner Family; PCP Nurse Practitioner Family; Referring Provider Orthopaedic Surgery; Visit Provider Orthopaedic Surgery
DX: M79.601 Pain in right arm (principal); M79.89 Other specified soft tissue disorders
CPT/HCPCS: 93971

== ENCOUNTER → 2019-06-23 10:18 | Outpatient (CLI) | payer MEDICAID, SELFPAY ==
[2019-06-08 15:24] VITALS: BMI 32.1
--- NOTE | 2019-06-23 10:19 | MRI_ITS ---
STUDY: MRI RIGHT SHOULDER REASON FOR EXAM: Right shoulder pain for 3 months, no known reinjury, surgery 9 months ago. TECHNIQUE: Standardized fat and water weighted pulse sequences were obtained in all 3 orthogonal planes. COMPARISON: Radiographs 06/08/2019 and MRI images 02/11/2018. FINDINGS: There is a small full-thickness tear of the supraspinatus/infraspinatus tendon junction (T2 coronal images 9, 10) measuring approximately 0.5 x 0.7 cm (length x width) and postoperative scarring of the supraspinatus and infraspinatus tendons and an ossification in the distal supraspinatus tendon (proton density coronal image 14). Normal subscapularis tendon. Normal teres minor tendon. Normal supraspinatus muscle. There is atrophy with fat replacement of the majority of the infraspinatus muscle (T2 axial images 16-18) on the prior study. Normal subscapularis muscle. Normal teres minor muscle. There is a small glenohumeral joint effusion. There is a dislodged anchor in the subscapularis recess (T2 sagittal image 1). There are anchors in the greater tuberosity. Status post biceps tenotomy. Normal labrum. Normal capsulo- ligamentous complex. There is acromioclavicular arthrosis with mild hypertrophic changes (T2 sagittal image 3). There is a Type II morphology (curved), with a neutral orientation. There is subacromial-subdeltoid bursal fluid. There is a low-grade strain of the lateral deltoid muscle (T2 coronal images 6-8). Normal trapezius muscle. MRI/Upper Ext Joint Only(Routine) IMPRESSION: Small recurrent full-thickness tear of the supraspinatus/infraspinatus tendon junction with a dislodged anchor in the subscapularis recess. Atrophy of the infraspinatus muscle. Low-grade strain of the lateral deltoid muscle. Acromioclavicular arthrosis. Glenohumeral joint fluid communicating with the subacromial-subdeltoid bursa. Electronically Signed: Kael Robledo MD at 10:46 EST Tel , Service support ,
== END ==
PROVIDERS: PCP Nurse Practitioner Family; Referring Provider Orthopaedic Surgery; Visit Provider Orthopaedic Surgery
DX: M25.511 Pain in right shoulder (principal)
CPT/HCPCS: 73221

== ENCOUNTER → 2019-06-28 08:54 | Outpatient (CLI) | payer MEDICAID, SELFPAY ==
[2019-04-20 13:03] VITALS: BMI 32.1
[2019-06-08 15:24] VITALS: BMI 32.1
--- NOTE | 2019-06-28 08:58 | RAD_ITS ---
STUDY: X-RAY - ESOPHAGUS (BARIUM SWALLOW) WITH FLUOROSCOPY REASON FOR EXAM: Male, 54 years old. DYSPHAGIA X1 YEAR. TECHNIQUE: 27 view(s) of the esophagus were obtained following swallowing of barium. FLUOROSCOPY TIME (if supplied): (0:13) minutes/seconds COMPARISON: None. FINDINGS: There is no demonstrated esophageal foreign body. There is no demonstrated stricture or mucosal abnormality. Normal gastroesophageal junction, without a demonstrated hiatal hernia. The patient ingested a 12 mm tablet of barium without any difficulty. There is atherosclerotic tortuosity of the aortic arch and descending thoracic aorta. Normal visualized pulmonary parenchyma. Normal visualized osseous structures of the thorax. RAD/Esophagus Only IMPRESSION: Normal plain film x-ray examination (barium swallow) of the esophagus. Electronically Signed: Gregg Waldron, at 12:57 EST , Service support ,
== END ==
PROVIDERS: Family Provider Nurse Practitioner Family; PCP Nurse Practitioner Family; Referring Provider Otolaryngology; Visit Provider Otolaryngology
DX: R13.10 Dysphagia, unspecified (principal)
CPT/HCPCS: 74220

== ENCOUNTER 2020-01-03 08:44 | Day surgery (SDC) | payer MEDICAID, SELFPAY ==
[2019-07-08 09:17] VITALS: BMI 32.1
[2020-01-03 09:41] VITALS: BP 136/97; PULSE 76; RESP 18; TEMP 37; O2SAT 100; BMI 32.3
[2020-01-03] MEDS: Lactated Ringers 1,000 ML 100 ML IV (09:46)
--- NOTE | 2020-01-03 10:20 | RAD_ITS ---
STUDY: X-RAY - SACROILIAC JOINTS REASON FOR EXAM: Male, 54 years old. SI JOINT BLOCK TECHNIQUE: 2 coned-down intraoperative view(s) of the sacroiliac joints were obtained. COMPARISON: None. FINDINGS: Intraoperative imaging provided for left SI joint injection RAD/S-I Jts 3 or More Views IMPRESSION: Intraoperative imaging provided for left sacroiliac joint injection. Electronically Signed: Gregg Waldron, at 11:06 EDT , Service support ,
[2020-01-03] MEDS: Bupivacaine 0.25% 30 ML Vial (10:26)
[2020-01-03] MEDS: MethylPREDNISolone Acetate 80 MG/ML Vial (10:26)
[2020-01-03 10:35] VITALS: BP 126/81; BP 136/97; PULSE 56; RESP 16; TEMP 36.4; O2SAT 99
[2020-01-03 10:40] VITALS: BP 122/97; BP 136/97; PULSE 55; RESP 16; O2SAT 99
[2020-01-03 10:45] VITALS: BP 127/82; BP 136/97; PULSE 57; RESP 16; O2SAT 98
[2020-01-03 10:50] VITALS: BP 131/82; BP 136/97; PULSE 55; RESP 16; TEMP 36.3; O2SAT 98
[2020-01-03 11:07] VITALS: BP 136/97
--- NOTE | 2020-01-03 12:13 | OP.PCM_ITS ---
Report of Operation Date of Procedure: 01/03/20 Description of Surgical Findings:: PREOPERATIVE DIAGNOSES: 1. Sacroiliitis. 2. Sacroiliac joint dysfunction. POSTOPERATIVE DIAGNOSES: 1. Sacroiliitis. 2. Sacroiliac joint dysfunction. PROCEDURE PERFORMED: Right sided sacroiliac joint steroid injection under fluoroscopy guidance. ANESTHESIA: MAC. BLOOD LOSS: Minimal. COMPLICATIONS: None. DESCRIPTION OF PROCEDURE: History and physical of today was reviewed. Risks and benefits of the procedure were explained. The patient understood and agreed to the procedure. Informed consent was obtained. IV inserted per routine pro tocol. The patient was taken to the operating room and placed in the prone position with a pillow positioned underneath the abdomen. The right lower back and buttock area was prepped and draped in a sterile fashion using iodine x3. Under fluoroscopy guidance on an AP view, the right SI joint was visualized. The skin and subcutaneous tissue was anesthetized with approximately 3 mL of 1% lidocaine using a 25-gauge regular needle. Under direct visualization with fluoroscopy at approximately 15-degree angle, using a 22-gauge 3-1/2-inch spinal needle, the needle was advanced via the skin. The tip of the needle was maneuvered and directed towards the inferior one-third of the posterior SI joint. Once the tip of the needle was at the vicinity of the joint, after negative aspiration for blood or CSF, a total of 1 mL of contrast was injected to confirm correct placement of the needle as well as cephalocaudal spread. Confirmation was obtained on AP as well as oblique view. After repeated negative aspiration and confirmation, a total of 4 mL of preservative-free 0.25% Marcaine with 40 mg of Depo-Medrol was injected in and around the SI joint. The needle was then removed intact. The patient experienced no sign or symptoms of intrathecal or intravascular injection. The patient experienced no paresthesia. The procedure was completed without any apparent difficulty or any complic ations. The patient appeared to tolerate it well. ASSESSMENT AND PLAN: This is a 54-year-old male with sacroiliitis, sacroiliac joint dysfunction status post left-sided sacroiliac joint steroid injection under fluoroscopic guidance patient will continue his current medications, patient will follow approximately 2 weeks for reevaluation.
== END 2020-01-03 11:20 | disposition home or self-care (01) ==
LOC: SDC 08:45 → AC 08:48
PROVIDERS: PCP Nurse Practitioner Family; Referring Provider Anesthesiology Pain Medicine; Visit Provider Anesthesiology Pain Medicine
PROC: 3E0U3BZ Introduction of Anesthetic Agent into Joints, Percutaneous Approach (ICD-10-PCS; CPT 64451; principal; 2020-01-03 10:15)
DX: M46.1 Sacroiliitis, not elsewhere classified (principal); M53.3 Sacrococcygeal disorders, not elsewhere classified; M51.16 Intervertebral disc disorders with radiculopathy, lumbar region; M47.27 Other spondylosis with radiculopathy, lumbosacral region; M43.16 Spondylolisthesis, lumbar region; M51.34 Other intervertebral disc degeneration, thoracic region; M50.30 Other cervical disc degeneration, unspecified cervical region; M47.812 Spondylosis without myelopathy or radiculopathy, cervical region; M16.11 Unilateral primary osteoarthritis, right hip; I25.10 Atherosclerotic heart disease of native coronary artery without angina pectoris; E78.00 Pure hypercholesterolemia, unspecified; K21.9 Gastro-esophageal reflux disease without esophagitis; Z79.891 Long term (current) use of opiate analgesic; Z79.899 Other long term (current) drug therapy; Z87.891 Personal history of nicotine dependence
CPT/HCPCS: 01992; 27096; 64483; 72202; J7120

== ENCOUNTER 2021-03-13 19:47 | Emergency (ER) | payer MEDICAID, SELFPAY ==
[2021-03-13 19:48] VITALS: BP 168/86; PULSE 60; RESP 16; TEMP 36.7; O2SAT 100; BMI 35.2
--- NOTE | 2021-03-13 20:18 | CT_ITS ---
INDICATION: Kidney Stone EXAMINATION: CT ABDOMEN AND PELVIS WITHOUT CONTRAST - CT Abdomen And Pelvis W/O Contrast Injection TECHNIQUE: Helically acquired images were obtained of the abdomen and pelvis without oral or IV contrast. A radiation dose optimization technique was used for this scan. IV Contrast dosage and agent: None. Oral contrast: None. COMPARISON: CT abdomen and pelvis 05/27/2018 FINDINGS: LOWER CHEST: Lung bases are clear. No cardiomegaly or pericardial effusion. LIVER: Multiple hepatic hypodensities measuring less than 1 cm. Largest measures 16 mm and shows fluid density likely representing cysts. These are also visible on prior exam and are not appreciably changed. Normal size and contour. Normal density. GALLBLADDER AND BILIARY TREE: No calcified gallstones. No gallbladder distension or wall edema. No intra- or extrahepatic biliary ductal dilation. PANCREAS: No focal cystic or solid mass. SPLEEN: Normal size without focal cystic or solid mass. ADRENAL GLANDS: No nodules. KIDNEYS AND URETERS: Normal renal size and position. 8 mm proximal left ureteropelvic stone measures 8 mm and greatest diameter and is associated with mild caliectasis and asymmetrically increased perinephric fatty stranding. No appreciable decreased renal density. There are also several other nonobstructive stones in the right and left kidney ranging from 3 to 7 mm in diameter. PERITONEUM: No ascites or free air. No other fluid collection. No intra-abdominal lymphadenopathy. No retroperitoneal lymphadenopathy. BOWEL: No evidence of acute appendicitis. No stomach or bowel distension. No focal inflammatory change. LYMPH NODES: No enlarged mesenteric or retroperitoneal lymph nodes. VESSELS: Aorta is non-dilated. URINARY BLADDER: Unremarkable. REPRODUCTIVE ORGANS: No pelvic masses. ABDOMINAL WALL: Small, fat filled right inguinal hernia. BONES: L3-4 posterior transpedicular screws and fusion hardware with intervertebral disc hardware. There is grade 2 anterolisthesis of L3 on L4. Patient status post bilateral laminectomy. A surgical changes are new compared to prior exam from 2018. There is also a new L4 posterior spinous process linear lucency most likely postsurgical however fracture is not excluded. Correlate clinically. There are moderately advanced degenerative disc and endplate changes at L4-5 and L5-S1. There is also some subcutaneous cortical sclerosis involving the iliac bones bilaterally with no definite degenerative changes sacroiliac joints. This is unchanged compared to the prior comparison exam CT/Abdomen/Pelvis without Cont IMPRESSION: Proximal left ureteropelvic junction, 8 mm stone resulting in mild hydronephrosis and new perinephric stranding density. No evidence of renal edema. Multiple other nonobstructing renal stones as above. Hepatic hypodensities unchanged compared with prior exam likely representing cyst. Postsurgical and degenerative changes spine as above. Electronically Signed: Adam Navarrete DO at 21:12 EDT Tel , Service support ,
[2021-03-13] MEDS: Ketorolac 15 MG/ML Vial IV (20:27)
[2021-03-13] MEDS: Ondansetron 4 MG/2 ML Vial IV (20:27)
[2021-03-13] MEDS: Morphine 4 MG/ML Syringe IV (20:29)
[2021-03-13 20:30] LABS: Mucous, Urine 0 SEEN /hpf (<or=2+); Squamous Epithelial Cells - UA 0 SEEN /hpf (0-5)
[2021-03-13 20:31] LABS: Color, Urine Yellow (Yellow); Glucose, Dipstick Normal (Normal); Ketone-Dipstick 5 mg/dl (Negative); Leukocyte Esterase-Dipstick 25 /ul (Negative); Nitrite-Dipstick Negative (Negative); Occult Blood-Urine 250 /ul (Negative); Protein-Dipstick 30 mg/dl (Negative); Specific Gravity, Urine 1.025 (1.002-1.030); Urine Bilirubin Dipstick Negative (Negative); Urine Clarity Clear (Clear); Urine Urobilinogen Normal (Normal)
[2021-03-13 20:32] LABS: Absolute Lymphocyte Count 1.94 X10^3/uL (0.83-4.51); Absolute Neutrophil Count 4.8 X10^3/uL (2.0-7.7); Basophil# 0.04 X10^3/uL; Basophil% 0.5 % (0-1); Eosinophil# 0.11 X10^3/uL; Eosinophils% 1.4 % (0-5); Hematocrit 47.6 % (40-54); Hemoglobin 15.4 g/dL (13.0-16.5); Lymphocyte # 1.94 X10^3/ul (0.83-4.51); Lymphocyte % 24.6 % (19-41); Mean Corp Hgb Conc 32.4 g/dL (32-36); Mean Corpuscular Hgb 28.8 pg (27.0-32.0); Mean Platelet Vol. 10.8 fl (6.2-12.0); Monocyte# 0.96 X10^3/uL; Monocyte% 12.2 % (0-10); NRBC Flagged by Analyzer 0 % (0-5); Neutrophil # 4.82 X10^3/uL (2.7-7.7); Neutrophil % 60.9 % (47-70); Platelet Count 222 K/mm3 (150-450); RBC Distribution Width CV 14.5 % (11.6-14.6); RBC Distribution Width SD 47.2 fl (35.1-43.9); Red Blood Count 5.35 M/mm3 (4.6-6.2); White Blood Count 7.9 K/mm3 (4.4-11.0)
[2021-03-13 20:41] LABS: Red Blood Cells-Urine 50-100 SEEN /hpf (0-5)
[2021-03-13 20:42] LABS: White Blood Cells 5-10 SEEN /hpf (0-5)
[2021-03-13 20:44] LABS: Anion Gap 6 (5-15); BUN 37 mg/dL (7-18); BUN/Creat Ratio 20.4 RATIO (10-20); Calcium,Total 8.7 mg/dL (8.5-10.1); Chloride 109 mmol/L (98-107); Creatinine, Serum 1.81 mg/dL (0.70-1.30); EST Glomerular Filtration Rate 42 mL/min (>60); Est Glom Filt Rate - Afr Amer 51 mL/min (>60); Glucose 91 mg/dL (74-106); Potassium 4.8 mmol/L (3.5-5.1); Sodium Level 144 mmol/L (136-145)
[2021-03-13 20:44] LABS: Bacteria 1+ /hpf (None Seen)
--- NOTE | 2021-03-13 22:26 | EDS_ITS ---
HPI History of Present Illness Chief Complaint: Flank Pain Narrative Narrative: 55-year-old male presenting with left flank pain. He states he has a history of kidney stones in the past. He denies dysuria or hematuria. Patient states that he was working outside when he came in he had acute onset left flank pain. He has nausea without vomiting. He denies fever or chills. He denies diarrhea or constipation. He denies any trauma to the abdomen. [facility] Medical History Heartburn Home Medications meloxicam 15 mg PO DAILY 02/23/17 [History Last Taken Unknown] gabapentin 300 mg capsule 300 mg PO TID 06/05/17 [History Last Taken 07/21/17 08:00] diclofenac sodium 1 % topical gel 2 g TOPICAL DAILY PRN 03/31/18 [History Last Taken Unknown] omeprazole 40 mg PO DAILY 05/27/18 [History Last Taken 01/03/20] cetirizine 10 mg PO DAILY 12/24/19 [History Last Taken 01/03/20] methocarbamol 750 mg PO BID PRN 03/13/21 [History Last Taken Unknown] ondansetron HCl [Zofran] 4 mg PO Q8H PRN #14 tab 03/13/21 [Rx Last Taken Unknown] oxycodone 5 mg PO BID PRN 03/13/21 [History Last Taken Unknown] oxycodone-acetaminophen [Percocet] 1 tab PO Q8H PRN 3 Days #12 tab 03/13/21 [Rx Last Taken Unknown] tamsulosin [Flomax] 0.4 mg PO DAILY #14 cap 03/13/21 [Rx Last Taken Unknown] Allergy/AdvReac Type Severity Reaction Status Date / Time cyclobenzaprine Allergy Mild flushed Verified 03/13/21 19:51 [From Flexeril] hydrocodone [From Vicodin] AdvReac Nausea Verified 03/13/21 19:51 Family History Father Heart disease Surgical History finger tendon h/o gallbladder removed Heart Catheterization Social History Smoking Status: Former smoker ROS ROS ED Constitutional Constitutional ED: Denies chills or fever(s) Eyes Eyes: Denies blurry vision or change in vision ENT ENT ED: Denies rhinorrhea or sore throat Cardiovascular Cardiovascular: Denies chest pain or palpitations Respiratory/Chest Respiratory/Chest: Denies cough or dyspnea Gastrointestinal Gastrointestinal: Reports abdominal pain and nausea; Denies constipation, diarrhea or vomiting Genitourinary Genitourinary ED: Denies dysuria or hematuria Musculoskeletal Musculoskeletal: Reports back pain; Denies arthralgias or myalgias Integumentary Denies abscess or rash Neurologic Neurologic: Denies headache(s) or weakness EXAM Physical Exam Const Vital Signs: 03/13/21 19:48 03/13/21 22:43 Temperature 98.1 F Temperature Source Oral Pulse Rate 60 69 Respiratory Rate 16 16 Blood Pressure 168/86 H 148/76 H Blood Pressure Mean 113 Pulse Ox 100 98 Oxygen Delivery Method Room Air Positive well nourished General Appearance ED: NAD HEENT Reports moist mucous membranes normocephalic and atraumatic Eyes PERRL and EOMs intact bilaterally Resp normal respiratory effort and clear to auscultation bilaterally Cardio regular rate and regular rhythm Back/Spine General Back: CVA tenderness left Neuro oriented x3 Sensorium / Orientation: alert Psych mental status grossly normal Skin Lesions: no lesions Rashes: no rashes MDM MDM MDM Narrative Medical decision making narrative: 55-year-old male presenting with left flank pain. He states this was acute in onset and he has a history of kidney stones. His CBC shows no leukocytosis and his hemoglobin hematocrit are stable. BMP shows a creatinine of 1.81 with no comparison since 2018 in May. At that time it was 0.9. Is unsure if this is acute. His urinalysis is positive for blood but shows no infection. CT of the abdomen pelvis without contrast is performed which shows a proximal 8 mm ureteropelvic junction stone on the left with left hydronephrosis and hydroureter. Patient's pain was controlled with morphine, Toradol, Zofran. Patient is comfortable. I discussed with him the need for follow-up with urology. I also discussed with him the acute kidney injury. I do not believe he needs to be admitted for this but he does need close follow-up. Patient is counseled to hydrate well. He was prescribed Percocet, Zofran, Flomax. He is given follow-up with Dr. Jeter. Impression: 1. Left 8 mm kidney stone 2. Acute kidney injury Lab Data Labs: Laboratory Results - last 24 hr 03/13/21 03/13/21 03/13/21 19:52 19:52 20:00 WBC 7.9 RBC 5.35 Hgb 15.4 Hct 47.6 MCV 89.0 MCH 28.8 MCHC 32.4 RDW Std Deviation 47.2 H RDW Coeff of Usha 14.5 Plt Count 222 MPV 10.8 Immature Gran % (Auto) 0.400 Neut % (Auto) 60.9 Lymph % (Auto) 24.6 [place] % (Auto) 12.2 H Eos % (Auto) 1.4 Baso % (Auto) 0.5 Absolute Neuts (auto) 4.8 Absolute Lymphs (auto) 1.94 Nucleated RBC % 0 Sodium 144 Potassium 4.8 Chloride 109 H Carbon Dioxide 29.0 Anion Gap 6 BUN 37 H Creatinine 1.81 H Estim Creat Clear Calc 47.20 Est GFR (MDRD) Af Amer 51 L Est GFR (MDRD) Non-Af 42 L BUN/Creatinine Ratio 20.4 H Glucose 91 Calcium 8.7 Urine Color Yellow Urine Clarity Clear Urine pH 5.0 Ur Specific [place] 1.025 Urine Protein 30 H Urine Glucose (UA) Normal Urine Ketones 5 H Urine Occult Blood 250 H Urine Nitrite Negative Urine Bilirubin Negative Urine Urobilinogen Normal Ur Leukocyte Esterase 25 H Urine RBC 50-100 SEEN Urine WBC 5-10 SEEN Ur Squamous Epith Cells 0 SEEN Urine Bacteria 1+ Urine Mucus 0 SEEN Radiography Diagnostic Testing: Clinical Impression(s) from Imaging Studies Abdomen/Pelvis CT 03/13/21 20:18 IMPRESSION: Proximal left ureteropelvic junction, 8 mm stone resulting in mild hydronephrosis and new perinephric stranding density. No evidence of renal edema. Multiple other nonobstructing renal stones as above. Hepatic hypodensities unchanged compared with prior exam likely representing cyst. Postsurgical and degenerative changes spine as above. Electronically Signed: Adam Navarrete DO at 21:12 EDT Tel , Service support , Discharge Plan Triage Chief Complaint: Flank Pain ED Provider: Rg Colindres Dx/Rx/DC Orders Instructions: ED Kidney Stone w/ Colic Prescriptions: New oxycodone-acetaminophen [Percocet] 5-325 mg tablet 1 tab PO Q8H PRN (Reason: pain) 3 Days Qty: 12 RF: 0 ondansetron HCl [Zofran] 4 mg tablet 4 mg PO Q8H PRN (Reason: nausea and vomiting) Qty: 14 RF: 0 tamsulosin [Flomax] 0.4 mg capsule 0.4 mg PO DAILY Qty: 14 RF: 0 No Action gabapentin 300 mg capsule 300 mg PO TID RF: 0 diclofenac sodium 1 % gel 2 g TOPICAL DAILY PRN (Reason: Pain Or Fever) RF: 0 meloxicam 15 MG tablet 15 mg PO DAILY RF: 0 omeprazole 40 MG capsule,delayed release(DR/EC) 40 mg PO DAILY RF: 0 cetirizine 10 MG capsule 10 mg PO DAILY RF: 0 methocarbamol 750 mg tablet 750 mg PO BID PRN (Reason: Pain) RF: 0 oxycodone 5 mg tablet 5 mg PO BID PRN (Reason: Pain) RF: 0 Primary Care Provider: Erica Junior NP Referrals: Kee Jeter MD [STAFF PHYSICIAN] - As soon as possible Erica Junior NP, [employer] [facility] [Primary Care Provider] - Disposition Disposition: Home, Self Care Discharge Date/Time: 03/13/21 22:45
[2021-03-13] MEDS: oxyCODONE 5 MG Tablet PO (22:33)
[2021-03-13 22:43] VITALS: BP 148/76; PULSE 69; RESP 16; O2SAT 98
== END 2021-03-13 22:45 | disposition home or self-care (01) ==
PROVIDERS: Emergency Provider Student in an Organized Health Care Education/Training Program; PCP Nurse Practitioner Family
DX: N13.2 Hydronephrosis with renal and ureteral calculous obstruction (principal); N17.9 Acute kidney failure, unspecified; Z79.1 Long term (current) use of non-steroidal anti-inflammatories (NSAID); Z79.899 Other long term (current) drug therapy; Z87.442 Personal history of urinary calculi; Z87.891 Personal history of nicotine dependence
CPT/HCPCS: 74176; 80048; 81001; 85025; 96374; 96375; 99285; J7030; J2405

== ENCOUNTER 2021-06-16 11:02 | Emergency (ER) | payer MEDICAID, SELFPAY ==
[2021-06-16 11:02] VITALS: BP 152/98; PULSE 120; RESP 14; TEMP 37; O2SAT 98; BMI 31.2
--- NOTE | 2021-06-16 11:17 | CT_ITS ---
STUDY: CT ABDOMEN AND PELVIS WITH CONTRAST REASON FOR EXAM: Male, 56 years old. abdominal pain RADIATION DOSAGE (If Supplied By Facility): CTDIvol = ( 15.03 ) mGy, DLP = ( 1290.31 ) mGycm TECHNIQUE: Transaxial images were obtained from the dome of the diaphragm to the symphysis pubis without oral contrast. IV 100mL Isovue-370 was administered. Sagittal and coronal images were reconstructed. Individualized dose optimization techniques were used for this CT. COMPARISON: 05/27/2018 FINDINGS: The visualized lung bases are unremarkable. The visualized portions of the heart are within normal limits. Multiple simple-appearing hepatic cysts are stable. No required imaging follow-up needed given high likelihood of benign nature. Gallbladder is absent. Normal spleen. Normal pancreas. Normal bilateral adrenal glands. Nonobstructing punctate calculus of the right kidney. Nonobstructing calculus of the left kidney. No hydronephrosis. Nondistended stomach; gastric wall thickening cannot be excluded. Normal small intestine. Normal colon. The appendix is visualized and appears normal. There is diffuse atherosclerotic calcification of the abdominal aorta, without a demonstrated aneurysm. Normal inferior vena cava. Normal retroperitoneum. Normal urinary bladder. Normal visualized prostate gland. There is a right-sided inguinal hernia containing adipose tissue. Fusion hardware of the lumbar spine. CT/Abdomen/Pelvis W IV Cont ONLY IMPRESSION: 1. No acute inflammatory process or bowel obstruction. 2. Poorly distended stomach, gastric wall thickening cannot be excluded. 3. Bilateral nephrolithiasis without hydronephrosis. Electronically Signed: Garland Wesley MD ([place]oks) at 13:28 EST , Service support ,
--- NOTE | 2021-06-16 11:18 | EX.ED.DYSGE1 ---
HPI History of Present Illness Chief Complaint: Abd Pain Informant: patient Narrative Narrative: 56-year-old male presenting to the emergency department with 3 weeks of generalized abdominal pain. He states that the pain feels like he has been hit with a sledgehammer. He states its constant worse with movement and with eating. He notes nausea and vomiting today. He had 2 bowel movements today which he reports is normal. He also reports a fever this morning. He said prior gallbladder surgery. He saw Dr. Tejada on and has a upper GI scope scheduled for September. He states that the pain continues to feel that it is worsening. He notes a prior history of kidney stones [facility] Medical History Heartburn Home Medications gabapentin 300 mg capsule 300 mg PO TID 06/05/17 [History Last Taken 07/21/17 08:00] diclofenac sodium 1 % topical gel 2 g TOPICAL DAILY PRN 03/31/18 [History Last Taken Unknown] omeprazole 40 mg PO DAILY 05/27/18 [History Last Taken 01/03/20] cetirizine 10 mg PO DAILY 12/24/19 [History Last Taken 01/03/20] celecoxib 200 mg capsule 200 mg PO DAILY #30 cap 05/16/21 [Rx Last Taken Unknown] methocarbamol 750 mg tablet 750 mg PO TID 05/16/21 [History Last Taken Unknown] montelukast 10 mg tablet tablet PO 05/16/21 [History Last Taken Unknown] oxycodone 5 mg tablet 5 mg PO BID PRN 05/16/21 [History Last Taken Unknown] dicyclomine 20 mg PO TIDAC PRN #30 capsule 06/16/21 [Rx Last Taken Unknown] ondansetron 4 mg PO Q6H PRN PRN #15 tab 06/16/21 [Rx Last Taken Unknown] Allergy/AdvReac Type Severity Reaction Status Date / Time cyclobenzaprine Allergy Mild flushed Verified 06/16/21 11:05 [From Flexeril] hydrocodone [From Vicodin] AdvReac Nausea Verified 06/16/21 11:05 Family History Father Heart disease Surgical History finger tendon h/o gallbladder removed Heart Catheterization Social History Smoking Status: Former smoker ROS ROS ED Constitutional Constitutional ED: Reports fever(s); Denies chills or weight loss Eyes Eyes: Denies change in vision or diplopia ENT ENT ED: Denies ear pain, rhinorrhea or sore throat Cardiovascular Cardiovascular: Denies chest pain, orthopnea, palpitations or racing heartbeat Respiratory/Chest Respiratory/Chest: Denies cough, dyspnea or orthopnea Gastrointestinal Gastrointestinal: Reports abdominal pain, nausea and vomiting; Denies diarrhea Genitourinary Genitourinary ED: Denies dysuria, hematuria or urinary frequency Musculoskeletal Musculoskeletal: Denies arthralgias or myalgias Integumentary Denies abscess or rash Neurologic Neurologic: Denies headache(s) or weakness Psychiatric Psychiatric: Denies anxiety, depression, suicidal ideation or suicidal thoughts Endocrine Endocrinology: Denies polydipsia, polyphagia or polyuria Allergic/Immunologic Allergic/Immunologic ED: Denies mouth swelling, tongue swelling or urticaria EXAM Physical Exam Const Vital Signs: 06/16/21 11:02 Temperature 98.6 F Temperature Source Temporal Pulse Rate 120 H Respiratory Rate 14 Blood Pressure 152/98 H Blood Pressure Mean 116 Pulse Ox 98 Oxygen Delivery Method Room Air Positive well nourished and well developed General Appearance ED: well developed HEENT Reports normocephalic, head/scalp atraumatic, TM's clear and moist mucous membranes Negative for trauma Tympanic Membrane ED: Yes TM's clear Eyes PERRL and EOMs intact bilaterally Neck no lymphadenopathy, supple and no JVD Resp normal respiratory effort and clear to auscultation bilaterally Cardio regular rate, regular rhythm and no murmurs GI GI Narrative: Generalized abdominal tenderness to palpation Auscultation: normoactive bowel sounds Palpation: soft; Negative for guarding or rebound tenderness present Back/Spine no CVA tenderness and normal ROM Extremity normal to inspection General Extremety ED: Negative for edema General Extremity: Negative for edema Neuro oriented x3 and CN's II-XII intact bilaterally Sensorium / Orientation: alert Motor Exam: strength 5/5 throughout Psych mental status grossly normal Mood & Affect: Negative for depressed or tearful Skin no rashes or lesions noted and no wounds MDM MDM MDM Narrative Medical decision making narrative: Blood work showed a white count of 5.1. CMP is otherwise negative. Lipase 85. Urinalysis is normal. CT of the abdomen pelvis did not demonstrate anything acute to really explain his symptoms. Patient's temperature is about 100 orally here. We are going to add a COVID test on. I will write for Barb and Sunday. He is to follow-up 24 to 48 hours if continued symptoms return if worsening or concerns Lab Data Attestation: I reviewed the patient's lab results. Labs: Laboratory Results - last 24 hr 06/16/21 06/16/21 06/16/21 11:40 11:53 11:53 WBC 5.1 RBC 5.75 Hgb 16.7 H Hct 50.8 MCV 88.3 MCH 29.0 MCHC 32.9 RDW Std Deviation 46.8 H RDW Coeff of Usha 14.5 Plt Count 171 MPV 10.4 Immature Gran % (Auto) 0.600 Neut % (Auto) 81.4 H Lymph % (Auto) 3.3 L [place] % (Auto) 13.1 H Eos % (Auto) 1.2 Baso % (Auto) 0.4 Absolute Neuts (auto) 4.2 Absolute Lymphs (auto) 0.17 L Nucleated RBC % 0 Differential Comment SCANNED Sodium 139 Potassium 4.6 Chloride 105 Carbon Dioxide 29.0 Anion Gap 5 BUN 20 H Creatinine 0.94 Estim Creat Clear Calc 89.84 Est GFR (MDRD) Af Amer 107 Est GFR (MDRD) Non-Af 89 BUN/Creatinine Ratio 21.2 H Glucose 89 Calcium 8.8 Total Bilirubin 0.60 AST 23 ALT 24 Alkaline Phosphatase 113 Total Protein 6.9 Albumin 3.7 Globulin 3.2 Albumin/Globulin Ratio 1.2 Lipase 85 Urine Color Yellow Urine Clarity Clear Urine pH 7.0 Ur Specific [place] 1.010 Urine Protein Negative Urine Glucose (UA) Normal Urine Ketones 15 H Urine Occult Blood 10 H Urine Nitrite Negative Urine Bilirubin Negative Urine Urobilinogen Normal Ur Leukocyte Esterase Negative Urine RBC 0-5 SEEN Urine WBC 0-5 SEEN Ur Squamous Epith Cells Not Reportable Urine Bacteria 0 SEEN Urine Mucus 0 SEEN Radiography Diagnostic Testing: Clinical Impression(s) from Imaging Studies Abdomen/Pelvis CT 06/16/21 11:17 IMPRESSION: 1. No acute inflammatory process or bowel obstruction. 2. Poorly distended stomach, gastric wall thickening cannot be excluded. 3. Bilateral nephrolithiasis without hydronephrosis. Electronically Signed: Garland Wesley MD ([place]) at 13:28 EST , Service support , Discharge Plan Triage Chief Complaint: Abd Pain ED Provider: Marcel Padilla Dx/Rx/DC Orders Clinical Impression: Abdominal pain, Vomiting Instructions: Abdominal Pain Prescriptions: New ondansetron [ondansetron] 4 MG tablet 4 mg PO Q6H PRN PRN (Reason: Nausea) Qty: 15 RF: 0 dicyclomine 10 MG capsule 20 mg PO TIDAC PRN (Reason: Abdominal Pain) Qty: 30 RF: 0 No Action gabapentin 300 mg capsule 300 mg PO TID RF: 0 diclofenac sodium 1 % gel 2 g TOPICAL DAILY PRN (Reason: Pain Or Fever) RF: 0 montelukast 10 mg tablet PO RF: 0 methocarbamol 750 mg tablet 750 mg PO TID RF: 0 oxycodone 5 mg tablet 5 mg PO BID PRNRF: 0 celecoxib [Celebrex] 200 mg capsule 200 mg PO DAILY Qty: 30 RF: 0 omeprazole 40 MG capsule,delayed release(DR/EC) 40 mg PO DAILY RF: 0 cetirizine 10 MG capsule 10 mg PO DAILY RF: 0 Primary Care Provider: Erica Junior NP Referrals: Erica Junior NP, [facility] [Primary Care Provider] - 1-2 Days if not improving Disposition Disposition: Home, Self Care
[2021-06-16 11:44] LABS: Bacteria 0 SEEN /hpf (None Seen); Mucous, Urine 0 SEEN /hpf (<or=2+)
[2021-06-16 11:49] LABS: Color, Urine Yellow (Yellow); Glucose, Dipstick Normal (Normal); Ketone-Dipstick 15 mg/dl (Negative); Leukocyte Esterase-Dipstick Negative /ul (Negative); Nitrite-Dipstick Negative (Negative); Occult Blood-Urine 10 /ul (Negative); Protein-Dipstick Negative (Negative); Urine Bilirubin Dipstick Negative (Negative); Urine Clarity Clear (Clear); Urine Urobilinogen Normal (Normal)
[2021-06-16] MEDS: Ondansetron 4 MG/2 ML Vial IV (12:01)
[2021-06-16] MEDS: Morphine 4 MG/ML Syringe IV (12:02)
[2021-06-16 12:10] LABS: Absolute Lymphocyte Count 0.17 X10^3/uL (0.83-4.51); Absolute Neutrophil Count 4.2 X10^3/uL (2.0-7.7); Basophil# 0.02 X10^3/uL; Basophil% 0.4 % (0-1); Eosinophil# 0.06 X10^3/uL; Eosinophils% 1.2 % (0-5); Hematocrit 50.8 % (40-54); Hemoglobin 16.7 g/dL (13.0-16.5); Lymphocyte # 0.17 X10^3/ul (0.83-4.51); Lymphocyte % 3.3 % (19-41); Mean Corp Hgb Conc 32.9 g/dL (32-36); Mean Corpuscular Volume 88.3 fL (80-94); Mean Platelet Vol. 10.4 fl (6.2-12.0); Monocyte# 0.67 X10^3/uL; Monocyte% 13.1 % (0-10); NRBC Flagged by Analyzer 0 % (0-5); Neutrophil # 4.15 X10^3/uL (2.7-7.7); Neutrophil % 81.4 % (47-70); POSITIVE DIFFERENTIAL YES; Platelet Count 171 K/mm3 (150-450); RBC Distribution Width CV 14.5 % (11.6-14.6); RBC Distribution Width SD 46.8 fl (35.1-43.9); Red Blood Count 5.75 M/mm3 (4.6-6.2); White Blood Count 5.1 K/mm3 (4.4-11.0)
[2021-06-16 12:12] LABS: Differential Indicated SCAN CRITERIA MET
[2021-06-16 12:31] LABS: ALB/GLOB Ratio 1.2 RATIO (0.9-2.4); AST(SGOT) 23 U/L (15-37); Alanine Aminotransfer ALT/SGPT 24 U/L (16-61); Albumin, Serum 3.7 g/dL (3.2-5.0); Alkaline Phosphatase 113 U/L (45-117); Anion Gap 5 (5-15); BUN 20 mg/dL (7-18); BUN/Creat Ratio 21.2 RATIO (10-20); Calcium,Total 8.8 mg/dL (8.5-10.1); Chloride 105 mmol/L (98-107); Creatinine, Serum 0.94 mg/dL (0.70-1.30); EST Glomerular Filtration Rate 89 mL/min (>60); Est Glom Filt Rate - Afr Amer 107 mL/min (>60); Estimated Creatinine Clearance 89.84 ml/min; Globulin 3.2 g/dL (2.2-4.2); Glucose 89 mg/dL (74-106); Lipase 85 U/L (73-393); Potassium 4.6 mmol/L (3.5-5.1); Protein, Total 6.9 g/dL (6.4-8.2); Sodium Level 139 mmol/L (136-145)
[2021-06-16 12:34] LABS: Red Blood Cells-Urine 0-5 SEEN /hpf (0-5); White Blood Cells 0-5 SEEN /hpf (0-5)
[2021-06-16 12:56] LABS: Differential Comment SCANNED
== END 2021-06-16 14:33 | disposition home or self-care (01) ==
PROVIDERS: Emergency Provider Emergency Medicine; PCP Nurse Practitioner Family; Visit Provider Emergency Medicine
DX: R10.84 Generalized abdominal pain (principal); R11.2 Nausea with vomiting, unspecified; R12 Heartburn; Z79.899 Other long term (current) drug therapy; Z87.891 Personal history of nicotine dependence
CPT/HCPCS: 74177; 80053; 81001; 83690; 85025; 96374; 96375; 99283; Q9967; A4216; J2405

== ENCOUNTER 2022-01-28 20:57 | Emergency (ER) | payer MEDICAID, SELFPAY ==
[2022-01-28 20:58] VITALS: BP 144/91; PULSE 61; RESP 16; TEMP 36.4; O2SAT 98; BMI 30.7
--- NOTE | 2022-01-28 21:10 | CT_ITS ---
STUDY: CT ABDOMEN AND PELVIS WITHOUT CONTRAST REASON FOR EXAM: Male, 56 years old. Kidney Stone RADIATION DOSAGE (If Supplied By Facility): CTDIvol = ( 21.39 ) mGy, DLP = ( 1055.69 ) mGycm TECHNIQUE: Transaxial images were obtained from the dome of the diaphragm to the symphysis pubis without oral contrast, and without intravenous contrast. Sagittal and coronal images were reconstructed. Individualized dose optimization techniques were used for this CT. COMPARISON: CT abdomen and pelvis 06/16/2021. FINDINGS: LOWER CHEST: Normal. LIVER: Cystic changes in the liver measuring up to 19 mm, overall too small to characterize.. GALLBLADDER/BILE DUCTS: Bile bladder not visualized, likely surgically absent.. PANCREAS: Normal. SPLEEN: Normal. ADRENAL GLANDS: Normal. KIDNEYS/URETERS/BLADDER: Mild left hydroureteronephrosis due to calculi in the distal left ureter measuring up to 6 mm. Moderate left perinephric stranding. 4 mm calculus in the proximal right ureter. No right hydroureteronephrosis. Additional nonobstructive bilateral nephrolithiasis. RETROPERITONEUM/AORTA: Mild atherosclerotic calcifications.. BOWEL/MESENTERY: Mild increased stool in the proximal colon. APPENDIX: Identified and normal. PERITONEUM: Normal. REPRODUCTIVE ORGANS: Normal. BONES/SOFT TISSUES: Posterior L3-4 spinal fusion hardware and grade 1 anterolisthesis, similar compared to the prior. No acute osseous abnormality. OTHER: None. CT/Abdomen/Pelvis without Cont IMPRESSION: 1. Mild left hydroureteronephrosis due to calculi in the distal left ureter measuring up to 6 mm. 2. Proximal right ureter 4 mm calculus. No right hydroureteronephrosis. 3. Additional nonobstructive bilateral nephrolithiasis. Electronically Signed: Armaan Harrison MD at 23:02 EDT ,
--- NOTE | 2022-01-28 21:11 | EX.ED.DYSGE1 ---
HPI History of Present Illness Chief Complaint: Flank Pain Narrative Narrative: Patient presents with his girlfriend because of left flank pain that began at 8:00 this morning, approximately 13 hours ago. He states it got worse approximately 3 hours ago. It is all on the left side, radiating towards the front. It feels similar to when he had a kidney stone a few years ago. He relates history that he had an 8 mm stone that was going to be stented by a urologist, but when they went to do it, the stone was gone. This feels very similar. He denies any dysuria or hematuria. No fevers or chills. No nausea or vomiting. No exacerbating or alleviating factors. [facility] Medical History Heartburn Home Medications gabapentin 300 mg capsule 300 mg PO TID 06/05/17 [History Last Taken 07/21/17 08:00] diclofenac sodium 1 % topical gel 2 g topical DAILY PRN Pain Or Fever 03/31/18 [History Last Taken Unknown] omeprazole 40 mg capsule,delayed release 40 mg PO DAILY 05/27/18 [History Last Taken 01/03/20] cetirizine 10 mg capsule 10 mg PO DAILY 12/24/19 [History Last Taken 01/03/20] celecoxib 200 mg capsule (Celebrex) 200 mg PO DAILY #30 caps 05/16/21 [Rx Last Taken Unknown] methocarbamol 750 mg tablet 750 mg PO TID 05/16/21 [History Last Taken Unknown] montelukast 10 mg tablet tablet PO 05/16/21 [History Last Taken Unknown] oxycodone 5 mg tablet 5 mg PO BID PRN 05/16/21 [History Last Taken Unknown] dicyclomine 10 mg capsule 20 mg PO TIDAC PRN Abdominal Pain #30 CAPSULES 06/16/21 [Rx Last Taken Unknown] ondansetron 4 mg disintegrating tablet 4 mg PO Q6H PRN PRN Nausea #15 tabs 06/16/21 [Rx Last Taken Unknown] ketorolac 10 mg tablet 10 mg PO Q8H #15 tabs 01/28/22 [Rx Last Taken Unknown] Allergy/AdvReac Type Severity Reaction Status Date / Time cyclobenzaprine Allergy Mild flushed Verified 01/28/22 20:58 [From Flexeril] hydrocodone [From Vicodin] AdvReac Nausea Verified 01/28/22 20:58 Family History Father Heart disease Surgical History finger tendon h/o gallbladder removed Heart Catheterization Social History Smoking Status: Former smoker ROS ROS ED ROS Narrative Constitutional: No fever, no chills. HEENT: No sore throat. No neck pain. No loss of vision. No rhinorrhea. Cardiovascular: No chest pain. No palpitations. No pedal edema. Respiratory: No cough, no shortness of breath. Abdominal: No abdominal pain. No nausea. No vomiting. Genitourinary: No dysuria. No hematuria. Positive left flank pain radiating towards front. Musculoskeletal: No myalgias. No arthralgias. Neurologic: No headaches. No dizziness. No lightheadedness. Skin: No rash. No change in color. Psychiatric: No depression. No anxiety. EXAM Physical Exam Narrative Exam Narrative: Afebrile. Vital signs noted. Rocking back and forth on cot, appears uncomfortable. HEENT: Normocephalic. Atraumatic. PERRL, EOMI. Neck soft and supple. No point tenderness or step off. Cardiovascular: Regular rate and rhythm. No murmurs, rubs, or gallops appreciated. Respiratory: No tachypnea. Lungs clear to auscultation bilaterally. Gastrointestinal: Abdomen soft, nontender, with normoactive bowel sounds. No rebound or guarding. No CVA tenderness to percussion left flank. Neurological: Awake. Alert. Nonfocal, nonlateralizing. Skin: No rash. Normal color. No pallor. Musculoskeletal: No pedal edema. Full range of motion extremities. Const Vital Signs: 01/28/22 20:58 01/28/22 22:57 Temperature 97.6 F L Temperature Source Temporal Pulse Rate 61 55 L Respiratory Rate 16 15 Blood Pressure 144/91 H 122/77 H Blood Pressure Mean 108 92 Pulse Ox 98 96 Oxygen Delivery Method Room Air Room Air MDM MDM MDM Narrative Medical decision making narrative: Suspicion is high for ureterolithiasis. He was administered normal saline at 250 mL/h along with morphine, ondansetron, and Toradol. CBC, BMP, UA, and CT without contrast was also obtained. CBC is grossly normal with a normal white count of 10.0, hemoglobin slightly hemoconcentrated at 16.6 with hematocrit 50.7. Platelet count normal at 227. BMP shows chloride elevated at 108 with a BUN of 35 and a creatinine of 1.85, but he has had elevated creatinine in the past. He was bolused normal saline 1 L intravenously. Urinalysis shows 0-5 WBCs with 50-100 RBCs. I do not feel antibiotics are indicated. Is negative for nitrites. CT of the abdomen and pelvis without contrast is currently pending. CT returns with calculi in the left distal ureter measuring up to 6 mm. There is hydronephrosis. At this point in time, he will be discharged to follow-up with urology. He states he has a urologist in [place] but he was also referred to the urologist on-call. Additionally, he is in pain management and already receives oxycodone 5 mg. He will call his pain management provider to see if they can increase his narcotic pain medication. Additionally, he already takes Flomax once a day. He will continue this. I feel he can be discharged safely home with follow-up. I did write him a prescription for Toradol for the next 5 days. Return instructions were reviewed. Disposition is discharged home in stable condition. Lab Data Attestation: I reviewed the patient's lab results. Labs: Laboratory Results - last 24 hr 01/28/22 01/28/22 01/28/22 21:30 21:30 21:35 WBC 10.0 RBC 5.60 Hgb 16.6 H Hct 50.7 MCV 90.5 MCH 29.6 MCHC 32.7 RDW Std Deviation 48.6 H RDW Coeff of Usha 14.6 Plt Count 227 MPV 10.7 Immature Gran % (Auto) 0.400 Neut % (Auto) 73.2 H Lymph % (Auto) 15.9 L [place] % (Auto) 9.4 Eos % (Auto) 0.7 Baso % (Auto) 0.4 Absolute Neuts (auto) 7.4 Absolute Lymphs (auto) 1.60 Nucleated RBC % 0 Sodium 141 Potassium 4.4 Chloride 108 H Carbon Dioxide 31.0 Anion Gap 2 L BUN 35 H Creatinine 1.85 H Estim Creat Clear Calc 45.65 Est GFR (MDRD) Af Amer 49 L Est GFR (MDRD) Non-Af 41 L BUN/Creatinine Ratio 18.9 Glucose 90 Calcium 8.9 Urine Color Yellow Urine Clarity Cloudy Urine pH 6.0 Ur Specific [place] 1.015 Urine Protein 30 H Urine Glucose (UA) Normal Urine Ketones Negative Urine Occult Blood 250 H Urine Nitrite Negative Urine Bilirubin Negative Urine Urobilinogen Normal Ur Leukocyte Esterase 25 H Urine RBC 50-100 SEEN Urine WBC 0-5 SEEN Ur Squamous Epith Cells 0-5 SEEN Urine Bacteria 0 SEEN Urine Mucus 0 SEEN Radiography Diagnostic Testing: Clinical Impression(s) from Imaging Studies Abdomen/Pelvis CT 01/28/22 21:10 IMPRESSION: 1. Mild left hydroureteronephrosis due to calculi in the distal left ureter measuring up to 6 mm. 2. Proximal right ureter 4 mm calculus. No right hydroureteronephrosis. 3. Additional nonobstructive bilateral nephrolithiasis. Electronically Signed: Armaan Harrison MD at 23:02 EDT , Discharge Plan Triage Chief Complaint: Flank Pain ED Provider: Tahir Gonzalez Dx/Rx/DC Orders Clinical Impression: Left flank pain, Ureterolithiasis Instructions: ED Kidney Stone w/ Colic Prescriptions: New ketorolac 10 mg tablet 10 mg PO Q8H Qty: 15 0RF No Action gabapentin 300 mg capsule 300 mg PO TID diclofenac sodium 1 % gel 2 g TOPICAL DAILY PRN (Reason: Pain Or Fever) montelukast 10 mg tablet PO methocarbamol 750 mg tablet 750 mg PO TID oxycodone 5 mg tablet 5 mg PO BID PRN celecoxib [Celebrex] 200 mg capsule 200 mg PO DAILY Qty: 30 0RF Rx Instructions: Do not take in conjunction with meloxicam/Mobic or other NSAIDs. Tylenol is okay omeprazole 40 MG capsule,delayed release(DR/EC) 40 mg PO DAILY cetirizine 10 MG capsule 10 mg PO DAILY ondansetron [ondansetron] 4 MG tablet 4 mg PO Q6H PRN PRN (Reason: Nausea) Qty: 15 0RF dicyclomine 10 MG capsule 20 mg PO TIDAC PRN (Reason: Abdominal Pain) Qty: 30 0RF Primary Care Provider: Erica Junior NP Referrals: Kee Jeter MD [Med Staff - Active Staff] - 3-5 Days Erica Junior NP, [facility] [Primary Care Provider] - Activity Restrictions/Additional Instructions: Call your pain management doctor to see if they can increase your narcotic pain medication. Continue your Flomax as previously prescribed. Take anti-inflammatories as needed. Follow-up with your urologist or Dr. Jeter in 3 to 4 days, by the end of the week. Return with any fever, intractable pain, new or worsening symptoms. Disposition Disposition: Home, Self Care
[2022-01-28] MEDS: Ketorolac 30 MG/ML Syringe IV (21:28)
[2022-01-28] MEDS: Morphine 4 MG/ML Syringe IV (21:29)
[2022-01-28] MEDS: 0.9% Normal Saline 1,000 ML 250 ML IV (21:32)
[2022-01-28 21:44] LABS: Bacteria 0 SEEN /hpf (None Seen); Mucous, Urine 0 SEEN /hpf (<or=2+)
[2022-01-28 21:47] LABS: Glucose, Dipstick Normal (Normal); Ketone-Dipstick Negative (Negative); Leukocyte Esterase-Dipstick 25 /ul (Negative); Nitrite-Dipstick Negative (Negative); Occult Blood-Urine 250 /ul (Negative); Protein-Dipstick 30 mg/dl (Negative); Specific Gravity, Urine 1.015 (1.002-1.030); Urine Bilirubin Dipstick Negative (Negative); Urine Urobilinogen Normal (Normal)
[2022-01-28 21:47] LABS: Absolute Neutrophil Count 7.4 X10^3/uL (2.0-7.7); Basophil# 0.04 X10^3/uL; Basophil% 0.4 % (0-1); Eosinophil# 0.07 X10^3/uL; Eosinophils% 0.7 % (0-5); Hematocrit 50.7 % (40-54); Hemoglobin 16.6 g/dL (13.0-16.5); Lymphocyte % 15.9 % (19-41); Mean Corp Hgb Conc 32.7 g/dL (32-36); Mean Corpuscular Hgb 29.6 pg (27.0-32.0); Mean Corpuscular Volume 90.5 fL (80-94); Mean Platelet Vol. 10.7 fl (6.2-12.0); Monocyte# 0.94 X10^3/uL; Monocyte% 9.4 % (0-10); NRBC Flagged by Analyzer 0 % (0-5); Neutrophil # 7.35 X10^3/uL (2.7-7.7); Neutrophil % 73.2 % (47-70); Platelet Count 227 K/mm3 (150-450); RBC Distribution Width CV 14.6 % (11.6-14.6); RBC Distribution Width SD 48.6 fl (35.1-43.9)
[2022-01-28 21:57] LABS: Color, Urine Yellow (Yellow); Urine Clarity Cloudy (Clear)
[2022-01-28 21:58] LABS: Red Blood Cells-Urine 50-100 SEEN /hpf (0-5); Squamous Epithelial Cells - UA 0-5 SEEN /hpf (0-5); White Blood Cells 0-5 SEEN /hpf (0-5)
[2022-01-28 22:03] LABS: Anion Gap 2 (5-15); BUN 35 mg/dL (7-18); BUN/Creat Ratio 18.9 RATIO (10-20); Calcium,Total 8.9 mg/dL (8.5-10.1); Chloride 108 mmol/L (98-107); Creatinine, Serum 1.85 mg/dL (0.70-1.30); EST Glomerular Filtration Rate 41 mL/min (>60); Est Glom Filt Rate - Afr Amer 49 mL/min (>60); Estimated Creatinine Clearance 45.65 ml/min; Glucose 90 mg/dL (74-106); Potassium 4.4 mmol/L (3.5-5.1); Sodium Level 141 mmol/L (136-145)
[2022-01-28 22:57] VITALS: BP 122/77; PULSE 55; RESP 15; O2SAT 96
[2022-01-28 23:56] VITALS: BP 122/77; PULSE 55; RESP 15; O2SAT 96
== END 2022-01-29 | disposition home or self-care (01) ==
PROVIDERS: Emergency Provider Emergency Medicine; PCP Nurse Practitioner Family; Visit Provider Emergency Medicine
DX: N20.1 Calculus of ureter (principal); R10.9 Unspecified abdominal pain; Z87.891 Personal history of nicotine dependence
CPT/HCPCS: 74176; 80048; 81001; 85025; 96361; 96374; 96375; 99282; J7030; A4216

== ENCOUNTER 2022-02-04 15:30 | Emergency (ER) | payer MEDICAID, SELFPAY ==
[2022-02-04 15:32] VITALS: BP 139/88; PULSE 103; RESP 16; TEMP 36.9; O2SAT 96; BMI 29.9
--- NOTE | 2022-02-04 15:53 | EKG12_ITS ---
Test Reason : Blood Pressure : / mmHG Vent. Rate : 095 BPM Atrial Rate : 095 BPM P-R Int : 136 ms QRS Dur : 078 ms QT Int : 332 ms P-R-T Axes : 070 -17 048 degrees QTc Int : 417 ms Normal sinus rhythm Normal ECG Confirmed by CRAIG HAYNES, TIFFANIE ([id number]), non linear editor ADRIA GRAFF ([id number]) on 02/05/2022 9:53:29 AM Referred By: Confirmed By:TIFFANIE SRINIVASAN MD
--- NOTE | 2022-02-04 15:54 | EX.ED.DYSGE1 ---
HPI History of Present Illness Chief Complaint: Fever Informant: patient Onset/Context/Timing Onset: Days (4 days) Context: Gradual Onset Timing: Waxes and wanes Current Severity: Mild Maximum Severity: Mild Narrative Narrative: Patient presents secondary to fever. He was seen in the emergency room a week ago and diagnosed with a kidney stone. He followed up with a physician in [place] and had a left ureteral stent placed on , January 31 at [facility]. The following day he developed low-grade fever with some body aches. He was seen and evaluated at the emergency room at [facility] on Friday. He states there was no evidence of urinary infection and he was discharged. He does not believe they did COVID or influenza testing. He is unsure if they did cultures. He continues to have fever along with cough and some wheezing. He is bringing up green to white-colored sputum. T-max has been 102. [facility] Medical History Arthritis Heartburn Ureterolithiasis Home Medications gabapentin 300 mg capsule 300 mg PO TID 06/05/17 [History Last Taken 07/21/17 08:00] diclofenac sodium 1 % topical gel 2 g topical DAILY PRN Pain Or Fever 03/31/18 [History Last Taken Unknown] omeprazole 40 mg capsule,delayed release 40 mg PO DAILY 05/27/18 [History Last Taken 01/03/20] cetirizine 10 mg capsule 10 mg PO DAILY 12/24/19 [History Last Taken 01/03/20] celecoxib 200 mg capsule (Celebrex) 200 mg PO DAILY #30 caps 05/16/21 [Rx Last Taken Unknown] methocarbamol 750 mg tablet 750 mg PO TID 05/16/21 [History Last Taken Unknown] montelukast 10 mg tablet tablet PO 05/16/21 [History Last Taken Unknown] oxycodone 5 mg tablet 5 mg PO BID PRN Breakthrough Pain 05/16/21 [History Last Taken Unknown] dicyclomine 10 mg capsule 20 mg PO TIDAC PRN Abdominal Pain #30 CAPSULES 06/16/21 [Rx Last Taken Unknown] ondansetron 4 mg disintegrating tablet 4 mg PO Q6H PRN PRN Nausea #15 tabs 06/16/21 [Rx Last Taken Unknown] ketorolac 10 mg tablet 10 mg PO Q8H #15 tabs 01/28/22 [Rx Last Taken Unknown] guaifenesin 1,200 mg tablet, extended release 12 hr (Mucinex) 1,200 mg PO BID PRN congestion #10 tabs 02/04/22 [Rx Last Taken Unknown] nirmatrelvir 300 mg (150 mg x2)-ritonavir 100 mg tablet,dose pack(EUA) (Paxlovid) See Rx Instructions PO .COMPLEX #30 tabs 02/04/22 [Rx Last Taken Unknown] Allergy/AdvReac Type Severity Reaction Status Date / Time cyclobenzaprine Allergy Mild flushed Verified 02/04/22 15:44 [From Flexeril] hydrocodone [From Vicodin] AdvReac Nausea Verified 02/04/22 15:44 Family History Father Heart disease Surgical History finger tendon h/o gallbladder removed Heart Catheterization Social History Smoking Status: Former smoker ROS ROS ED Constitutional Constitutional ED: Reports fever(s); Denies chills Eyes Eyes: Denies change in vision or discharge from eye(s) ENT ENT ED: Denies discharge from eye(s), rhinorrhea or sore throat Cardiovascular Cardiovascular: Denies chest pain or palpitations Respiratory/Chest Respiratory/Chest: Reports cough and sputum; Denies dyspnea Gastrointestinal Gastrointestinal: Reports diarrhea; Denies abdominal pain, nausea or vomiting Genitourinary Genitourinary ED: Reports hematuria; Denies difficulty urinating or dysuria Musculoskeletal Musculoskeletal: Denies back pain or extremity pain Integumentary Denies Abrasions or rash Neurologic Neurologic: Denies headache(s) or weakness Allergic/Immunologic Allergic/Immunologic ED: Denies lip swelling or urticaria EXAM Physical Exam Const Vital Signs: 02/04/22 15:32 02/04/22 15:40 02/04/22 16:14 Temperature 98.5 F Temperature Source Temporal Pulse Rate 103 H 93 Respiratory Rate 16 14 Respiratory Effort Normal Respiratory Pattern Normal Blood Pressure 139/88 H 115/93 H Blood Pressure Mean 105 100 Pulse Ox 96 95 Oxygen Delivery Method Room Air Room Air 02/04/22 16:14 02/04/22 16:14 02/04/22 17:40 Temperature 98.5 F 98.7 F Temperature Source Oral Temporal Pulse Rate 69 Respiratory Rate 15 Respiratory Effort Respiratory Pattern Blood Pressure 129/91 H Blood Pressure Mean 103 Pulse Ox 94 Oxygen Delivery Method Room Air Room Air 02/04/22 17:40 Temperature 98.7 F Temperature Source Temporal Pulse Rate Respiratory Rate Respiratory Effort Respiratory Pattern Blood Pressure Blood Pressure Mean Pulse Ox Oxygen Delivery Method Positive well nourished and well developed General Appearance ED: well developed HEENT Reports normocephalic and head/scalp atraumatic Eyes PERRL and EOMs intact bilaterally Neck supple Chest Wall inspection of chest normal and palpation of chest normal Resp normal respiratory effort and clear to auscultation bilaterally Cardio regular rate and regular rhythm GI normal to inspection, nondistended, normoactive bowel sounds Palpation: soft Back/Spine no CVA tenderness Extremity normal to inspection Neuro oriented x3 and no sensory deficits noted Sensorium / Orientation: alert Motor Exam: strength 5/5 throughout Psych mental status grossly normal Skin no rashes or lesions noted MDM MDM MDM Narrative Medical decision making narrative: Sepsis work-up initiated. Patient given IV fluids. Lab Data Attestation: I reviewed the patient's lab results. Labs: Laboratory Results - last 24 hr 02/04/22 02/04/22 02/04/22 16:06 16:12 16:12 WBC 5.6 RBC 5.63 Hgb 16.8 H Hct 51.0 MCV 90.6 MCH 29.8 MCHC 32.9 RDW Std Deviation 49.1 H RDW Coeff of Usha 14.8 H Plt Count 178 MPV 10.6 Immature Gran % (Auto) 0.400 Neut % (Auto) 64.1 Lymph % (Auto) 18.0 L [place] % (Auto) 16.6 H Eos % (Auto) 0.5 Baso % (Auto) 0.4 Absolute Neuts (auto) 3.6 Absolute Lymphs (auto) 1.01 Nucleated RBC % 0 PT 13.6 INR 1.1 APTT 29.5 Sodium Potassium Chloride Carbon Dioxide Anion Gap BUN Creatinine Estim Creat Clear Calc Est GFR (MDRD) Af Amer Est GFR (MDRD) Non-Af BUN/Creatinine Ratio Glucose Lactic Acid Calcium Total Bilirubin AST ALT Alkaline Phosphatase Total Protein Albumin Globulin Albumin/Globulin Ratio Urine Color Yellow Urine Clarity Cloudy Urine pH 6.0 Ur Specific [place] 1.020 Urine Protein 100 H Urine Glucose (UA) Normal Urine Ketones 5 H Urine Occult Blood 250 H Urine Nitrite Negative Urine Bilirubin Negative Urine Urobilinogen Normal Ur Leukocyte Esterase 500 H Urine RBC > 100 SEEN Urine WBC >100 SEEN Ur Squamous Epith Cells 0 SEEN Urine Bacteria 2+ Urine Mucus 0 SEEN 02/04/22 02/04/22 16:12 16:12 WBC RBC Hgb Hct MCV MCH MCHC RDW Std Deviation RDW Coeff of Usha Plt Count MPV Immature Gran % (Auto) Neut % (Auto) Lymph % (Auto) [place] % (Auto) Eos % (Auto) Baso % (Auto) Absolute Neuts (auto) Absolute Lymphs (auto) Nucleated RBC % PT INR APTT Sodium 142 Potassium 3.9 Chloride 110 H Carbon Dioxide 28.0 Anion Gap 4 L BUN 20 H Creatinine 1.18 Estim Creat Clear Calc 71.57 Est GFR (MDRD) Af Amer 83 Est GFR (MDRD) Non-Af 68 BUN/Creatinine Ratio 16.9 Glucose 121 H Lactic Acid 0.9 Calcium 8.8 Total Bilirubin 0.50 AST 17 ALT 33 Alkaline Phosphatase 95 Total Protein 6.7 Albumin 3.4 Globulin 3.3 Albumin/Globulin Ratio 1.0 Urine Color Urine Clarity Urine pH Ur Specific [place] Urine Protein Urine Glucose (UA) Urine Ketones Urine Occult Blood Urine Nitrite Urine Bilirubin Urine Urobilinogen Ur Leukocyte Esterase Urine RBC Urine WBC Ur Squamous Epith Cells Urine Bacteria Urine Mucus Radiography Chest X-Ray - ED: 1 View, Read by ED Physician, Normal, Heart, Lungs and Mediastinum Diagnostic Testing: Clinical Impression(s) from Imaging Studies Chest X-Ray 02/04/22 16:19 IMPRESSION: 1. Normal examination of the chest. 2. Normal-appearing heart. 3. No infiltrates, atelectasis, effusion, pulmonary mass lesions. No evidence of a pneumonia, pneumonitis, or bronchitis. Electronically Signed: Patrick Anguiano MD at 17:17 EDT , EKG Initial EKG: Attestation: I personally reviewed and interpreted this EKG as follows: Interpretation: Sinus Rhythm (Sinus at 95 with no acute ischemia.) Treatment and Re-Evaluation Narrative: Chest x-ray per my interpretation reveals no focal infiltrate. Radiology interpretation is reviewed. EKG reveals no ischemia. CBC is normal at 5.6 with no left shift. Coags normal. Chemistry studies unremarkable with normal renal function. Lactic acid is 0.9. Urinalysis is nitrite negative, however he does have greater than 100 white cells and red cells. 2+ bacteria is noted. Patient is given Toradol and Cepacol lozenge for his throat pain. He is given a dose of Rocephin. Blood and urine cultures have been sent. Patient's COVID test returns positive. I spoke with the patient's urologist, Dr. Rincon in [place]. He agrees to hold antibiotics at this time until urine culture returns. I will write the patient for Paxil bid as well as Mucinex. Supportive care for COVID as instructed. Discharge Plan Triage Chief Complaint: Fever ED Provider: Sandra Bonner Dx/Rx/DC Orders Clinical Impression: COVID-19 Instructions: Coronavirus Disease 2019 (COVID-19): Overview, Coronavirus Disease 2019 (COVID-19): Caring for Yourself or Others Prescriptions: New Paxlovid (EUA) 300 mg (150 mg x 2)-100 mg tablets,dose pack See Rx Instructions .ROUTE .COMPLEX Qty: 30 0RF Rx Instructions: take TWO 150 mg tablets of nirmatrelvir with ONE 100 mg tablet of ritonavir twice daily for 5 days Mucinex 1,200 mg tablet extended release 12hr 1,200 mg PO BID PRN (Reason: congestion) Qty: 10 0RF No Action gabapentin 300 mg capsule 300 mg PO TID diclofenac sodium 1 % gel 2 g TOPICAL DAILY PRN (Reason: Pain Or Fever) montelukast 10 mg tablet PO methocarbamol 750 mg tablet 750 mg PO TID oxycodone 5 mg tablet 5 mg PO BID PRN (Reason: Breakthrough Pain) celecoxib [Celebrex] 200 mg capsule 200 mg PO DAILY Qty: 30 0RF Rx Instructions: Do not take in conjunction with meloxicam/Mobic or other NSAIDs. Tylenol is okay omeprazole 40 MG capsule,delayed release(DR/EC) 40 mg PO DAILY cetirizine 10 MG capsule 10 mg PO DAILY ondansetron [ondansetron] 4 MG tablet 4 mg PO Q6H PRN PRN (Reason: Nausea) Qty: 15 0RF dicyclomine 10 MG capsule 20 mg PO TIDAC PRN (Reason: Abdominal Pain) Qty: 30 0RF ketorolac 10 mg tablet 10 mg PO Q8H Qty: 15 0RF Primary Care Provider: Erica Junior NP Referrals: Erica Junior NP, [facility] [Primary Care Provider] - 1-2 Weeks Disposition Disposition: Home, Self Care
[2022-02-04] MEDS: 0.9% Normal Saline 1,000 ML 150 ML IV (16:11)
[2022-02-04 16:14] VITALS: BP 115/93; PULSE 93; RESP 14; TEMP 36.9; O2SAT 95
--- NOTE | 2022-02-04 16:19 | RAD_ITS ---
STUDY: AP PORTABLE UPRIGHT CHEST X-RAY OF 1617 HOURS ON 02/04/2022 REASON FOR EXAM: 56-year-old male with cough and fever. TECHNIQUE: A single view portable AP upright chest x-ray was performed per protocol. COMPARISON: None. FINDINGS: Normal osseous structures. No cardiomegaly. No pulmonary infiltrates, atelectasis, effusion, or pulmonary mass lesions. No evidence of a pneumonia, pneumonitis, or bronchitis. RAD/Chest 1 View (Portable) IMPRESSION: 1. Normal examination of the chest. 2. Normal-appearing heart. 3. No infiltrates, atelectasis, effusion, pulmonary mass lesions. No evidence of a pneumonia, pneumonitis, or bronchitis. Electronically Signed: Patrick Anguiano MD at 17:17 EDT ,
[2022-02-04 16:26] LABS: Mucous, Urine 0 SEEN /hpf (<or=2+); Squamous Epithelial Cells - UA 0 SEEN /hpf (0-5)
[2022-02-04 16:31] LABS: Absolute Lymphocyte Count 1.01 X10^3/uL (0.83-4.51); Absolute Neutrophil Count 3.6 X10^3/uL (2.0-7.7); Basophil# 0.02 X10^3/uL; Basophil% 0.4 % (0-1); Eosinophil# 0.03 X10^3/uL; Eosinophils% 0.5 % (0-5); Hemoglobin 16.8 g/dL (13.0-16.5); Lymphocyte # 1.01 X10^3/ul (0.83-4.51); Mean Corp Hgb Conc 32.9 g/dL (32-36); Mean Corpuscular Hgb 29.8 pg (27.0-32.0); Mean Corpuscular Volume 90.6 fL (80-94); Mean Platelet Vol. 10.6 fl (6.2-12.0); Monocyte# 0.93 X10^3/uL; Monocyte% 16.6 % (0-10); NRBC Flagged by Analyzer 0 % (0-5); Neutrophil % 64.1 % (47-70); Platelet Count 178 K/mm3 (150-450); RBC Distribution Width CV 14.8 % (11.6-14.6); RBC Distribution Width SD 49.1 fl (35.1-43.9); Red Blood Count 5.63 M/mm3 (4.6-6.2); White Blood Count 5.6 K/mm3 (4.4-11.0)
[2022-02-04 16:31] LABS: Color, Urine Yellow (Yellow); Glucose, Dipstick Normal (Normal); Ketone-Dipstick 5 mg/dl (Negative); Leukocyte Esterase-Dipstick 500 /ul (Negative); Nitrite-Dipstick Negative (Negative); Occult Blood-Urine 250 /ul (Negative); Protein-Dipstick 100 mg/dl (Negative); Urine Bilirubin Dipstick Negative (Negative); Urine Clarity Cloudy (Clear); Urine Urobilinogen Normal (Normal)
[2022-02-04 16:45] LABS: Bacteria 2+ /hpf (None Seen); Red Blood Cells-Urine > 100 SEEN /hpf (0-5); White Blood Cells >100 SEEN /hpf (0-5)
[2022-02-04 16:46] LABS: AST(SGOT) 17 U/L (15-37); Alanine Aminotransfer ALT/SGPT 33 U/L (16-61); Albumin, Serum 3.4 g/dL (3.2-5.0); Alkaline Phosphatase 95 U/L (45-117); Anion Gap 4 (5-15); BUN 20 mg/dL (7-18); BUN/Creat Ratio 16.9 RATIO (10-20); Calcium,Total 8.8 mg/dL (8.5-10.1); Chloride 110 mmol/L (98-107); Creatinine, Serum 1.18 mg/dL (0.70-1.30); EST Glomerular Filtration Rate 68 mL/min (>60); Est Glom Filt Rate - Afr Amer 83 mL/min (>60); Estimated Creatinine Clearance 71.57 ml/min; Globulin 3.3 g/dL (2.2-4.2); Glucose 121 mg/dL (74-106); Potassium 3.9 mmol/L (3.5-5.1); Protein, Total 6.7 g/dL (6.4-8.2); Sodium Level 142 mmol/L (136-145)
[2022-02-04 16:51] LABS: International Normalized Ratio 1.1; Partial Thromboplast Time 29.5 Seconds (24.1-36.2); Prothrombin Time (Protime)PT. 13.6 SECONDS (11.7-14.9)
[2022-02-04 16:59] LABS: Lactic Acid 0.9 mmol/L (0.4-1.9)
[2022-02-04] MEDS: Ceftriaxone 1 GM/50 ML BAG IV (17:33)
[2022-02-04] MEDS: Ketorolac 30 MG/ML Syringe IV (17:36)
[2022-02-04] MEDS: BENZOCAINE/MENTHOL 1 LOZENGE MUCOUS MEM (17:36)
[2022-02-04 17:40] VITALS: BP 129/91; PULSE 69; RESP 15; TEMP 37.1; O2SAT 94
[2022-02-04 18:22] VITALS: BP 135/88; PULSE 86; RESP 19; TEMP 37.1; O2SAT 96
== END 2022-02-04 18:27 | disposition home or self-care (01) ==
PROVIDERS: Emergency Provider Emergency Medicine; PCP Nurse Practitioner Family; Visit Provider Emergency Medicine
DX: U07.1 COVID-19 (principal); R09.3 Abnormal sputum; M19.90 Unspecified osteoarthritis, unspecified site; Z79.899 Other long term (current) drug therapy; Z87.891 Personal history of nicotine dependence
CPT/HCPCS: 36415; 71045; 80053; 81001; 83605; 85025; 85610; 85730; 87040; 87086; 87428; 93005; 96361; 96365; 96375; 99284; J7030

== ENCOUNTER 2022-08-12 09:02 | Emergency (ER) | payer MEDICAID, SELFPAY ==
[2022-08-12 09:03] VITALS: BP 137/89; PULSE 101; RESP 18; TEMP 37; O2SAT 95; BMI 31.0
--- NOTE | 2022-08-12 09:23 | EKG12_ITS ---
Test Reason : GENERAL Blood Pressure : / mmHG Vent. Rate : 094 BPM Atrial Rate : 094 BPM P-R Int : 140 ms QRS Dur : 068 ms QT Int : 330 ms P-R-T Axes : 064 -35 051 degrees QTc Int : 412 ms Normal sinus rhythm Left axis deviation Cannot rule out Anterior infarct , age undetermined Abnormal ECG Confirmed by CRAIG HAYNES, TIFFANIE ([id number]), magazine editor ADRIA GRAFF ([id number]) on 08/14/2022 10:01:46 AM Referred By: Confirmed By:TIFFANIE SRINIVASAN MD
--- NOTE | 2022-08-12 09:27 | EDS_ITS ---
HPI History of Present Illness Chief Complaint: Nausea/Vomiting Narrative Narrative: 57-year-old male presenting with multiple symptoms. Patient states that all of the been on and off for months. Patient states that he has not seen his primary care physician because she is a quack. Patient states he is here today instead. Patient states initially that he feels like I am burning up. He states that today this is from his waist up. Yesterday it was in his legs. Patient states he has not had a fever but does admit to body aches. He has generalized malaise but he is still able to ambulate. He has not had any falls. Patient states that he thinks he is passing a kidney stone on the left, and states he has a history of kidney stones. He denies any urinary symptoms such as dysuria or hematuria. He states that yesterday he had some left upper quadrant pain and left rib pain. The left rib pain has been on and off for months. The left upper quadrant pain is new over the last day. He states he ate some chicken last night and vomited up half of it. He states that he had some leftover Zofran which she took which helped him for about 30 minutes. He is concerned that he might have COVID again. He has not done a home test over the last few months nor has he been tested elsewhere. He denies a cough, fever, shortness of breath. He does not currently have any abdominal pain except for the left flank pain in his left lower back. [facility] Medical History Arthritis Heartburn Ureterolithiasis Home Medications diclofenac sodium 1 % topical gel 2 g topical DAILY PRN Pain Or Fever 03/31/18 [History Last Taken Unknown] omeprazole 40 mg capsule,delayed release 40 mg PO DAILY 05/27/18 [History Last Taken 01/03/20] oxycodone 5 mg tablet 5 mg PO BID PRN Breakthrough Pain 05/16/21 [History Last Taken Unknown] meloxicam 15 mg tablet 15 mg PO 03/25/22 [History Last Taken Unknown] nabumetone 750 mg tablet 750 mg PO 03/25/22 [History Last Taken Unknown] ondansetron 4 mg disintegrating tablet 4 mg PO Q8H PRN PRN Nausea #14 tabs 03/13/23 [Rx Last Taken Unknown] Allergy/AdvReac Type Severity Reaction Status Date / Time cyclobenzaprine Allergy Mild flushed Verified 08/12/22 09:07 [From Flexeril] hydrocodone [From Vicodin] AdvReac Nausea Verified 08/12/22 09:07 Family History Father Heart disease Surgical History finger tendon h/o gallbladder removed Heart Catheterization History of lumbar spinal fusion Social History Smoking Status: Former smoker quit date: 06/02/09 alcohol intake: current alcohol intake frequency: holidays/special occasions only ROS ROS ED Constitutional Constitutional ED: Reports sweats; Denies chills Eyes Eyes: Denies blurry vision or change in vision ENT ENT ED: Denies ear pain or sore throat Cardiovascular Cardiovascular: Reports chest pain; Denies palpitations or racing heartbeat Respiratory/Chest Respiratory/Chest: Denies cough, dyspnea or sputum Gastrointestinal Gastrointestinal: Reports abdominal pain, nausea and vomiting; Denies constipation or diarrhea Genitourinary Genitourinary ED: Denies dysuria, hematuria or urinary frequency Musculoskeletal Musculoskeletal: Denies arthralgias, myalgias or neck pain Integumentary Denies abscess, Abrasions or rash Neurologic Neurologic: Denies headache(s), paresthesias or weakness Psychiatric Psychiatric: Denies anxiety, depression, suicidal ideation or suicidal thoughts Endocrine Endocrinology: Denies polydipsia or polyuria EXAM Physical Exam Const Vital Signs: 08/12/22 09:03 Temperature 98.6 F Temperature Source Oral Pulse Rate 101 H Respiratory Rate 18 Blood Pressure 137/89 H Blood Pressure Mean 105 Pulse Ox 95 Oxygen Delivery Method Room Air Positive well nourished General Appearance ED: NAD; Negative for pallor HEENT Reports moist mucous membranes Eyes PERRL and EOMs intact bilaterally General Eye ED: Negative for pale conjunctiva or scleral icterus Chest Wall inspection of chest normal and palpation of chest normal Resp normal respiratory effort and clear to auscultation bilaterally Auscultation: Negative for rales, rhonchi or wheezes Cardio regular rate and regular rhythm GI normal to inspection, nondistended, normoactive bowel sounds Back/Spine no CVA tenderness Extremity normal to inspection Neuro oriented x3 and CN's II-XII intact bilaterally Sensorium / Orientation: alert Psych mental status grossly normal Skin no rashes or lesions noted and no wounds General Skin Exam: Negative for jaundice or pallor MDM MDM MDM Narrative Medical decision making narrative: 57-year-old male presenting with constellation of symptoms which has had for a few months intermittently. He describes it as a sensation of burning up. He denies a fever. He does admit to some left lower rib, left upper quadrant pain and vomiting last evening. He denies abdominal pain currently and he has no nausea or vomiting since last night. He does admit to some acid reflux symptoms. He is well-appearing and his physical exam is normal. Lungs are clear to auscultation bilaterally. Heart regular rate and rhythm. Abdomen soft nontender nondistended. He does complain of left flank pain but I does not have any CVA tenderness on exam. He is concerned for passing a stone. Differential diagnosis at this time includes but is not limited to differential includes but is not limited to ACS, PE, pneumothorax, muscle strain, costochondritis, GERD, gastritis, peptic ulcer disease, diverticulitis, pancreatitis, small bowel obstruction, viral etiology. We will obtain a CBC for white blood cell count, hemoglobin, differential. CMP to assess liver function, renal function, gl ucose, anion gap. High-sensitivity troponin to rule out cardiac etiology as well as chest x-ray and EKG. Urinalysis to assess for hematuria or UTI. We will obtain a flank study to rule out kidney stone. Patient medicated with Zofran and is currently pain-free. CBC shows a normal white blood cell count pain around hemoglobin slightly hemoconcentrated at 16.9. Platelets normal at 182. Renal function and electrolytes unremarkable. Glucose 107 with. Urinalysis negative for infection. There is also no evidence of hematuria. Patient returns had a kidney stone so I did obtain a CT of the abdomen pelvis without contrast and this is negative for acute findings. EKG shows sinus rhythm with a rate of 94 bpm without sign of ischemic change. Chest x-ray shows no acute process. Patient was tested for COVID and influenza today and tested negative. Discussed all pertinent findings with the patient and that his work- up was ultimately normal. I did not find a reason for his symptoms but I feel he stable for discharge. He was given return precautions. He should follow-up with his PCP otherwise. Impression: 1. Left flank pain 2. Nausea/vomiting 3. Generalized weakness Lab Data Labs: Laboratory Results - last 24 hr 08/12/22 08/12/22 08/12/22 09:50 09:50 09:51 WBC 6.2 RBC 5.82 Hgb 16.9 H Hct 52.5 MCV 90.2 MCH 29.0 MCHC 32.2 RDW Std Deviation 48.3 H RDW Coeff of Usha 14.7 H Plt Count 182 MPV 10.8 Immature Gran % (Auto) 0.500 Neut % (Auto) 81.8 H Lymph % (Auto) 6.6 L [place] % (Auto) 10.5 H Eos % (Auto) 0.3 Baso % (Auto) 0.3 Absolute Neuts (auto) 5.1 Absolute Lymphs (auto) 0.41 L Nucleated RBC % 0 Sodium 142 Potassium 4.1 Chloride 110 H Carbon Dioxide 27.0 Anion Gap 5 BUN 28 H Creatinine 1.01 Estim Creat Clear Calc 82.64 Est GFR (MDRD) Af Amer 99 Est GFR (MDRD) Non-Af 81 BUN/Creatinine Ratio 27.7 H Glucose 107 H Calcium 8.3 L Total Bilirubin 1.00 AST 18 ALT 22 Alkaline Phosphatase 108 Troponin I High Sens 5 Total Protein 6.5 Albumin 3.5 Globulin 3.0 Albumin/Globulin Ratio 1.2 Lipase 128 Urine Color Yellow Urine Clarity Sl. Cloudy Urine pH 8.0 Ur Specific [place] 1.010 Urine Protein 15 H Urine Glucose (UA) Normal Urine Ketones 50 H Urine Occult Blood Negative Urine Nitrite Negative Urine Bilirubin Negative Urine Urobilinogen 4 H Ur Leukocyte Esterase Negative Urine RBC 0 SEEN Urine WBC 0 SEEN Ur Squamous Epith Cells 0-5 SEEN Urine Bacteria RARE Urine Mucus 1+ Radiography Diagnostic Testing: Clinical Impression(s) from Imaging Studies Chest X-Ray 08/12/22 09:55 IMPRESSION: Normal x-ray examination of the chest. Electronically Signed: Francisco Laguerre MD at 10:13 EDT , Abdomen/Pelvis CT 08/12/22 11:35 IMPRESSION: No obstructive uropathy, or suspicious solid renal lesion, bilateral nonobstructing renal stones. Stable simple hepatic cysts, no specific follow-up needed Scattered colonic diverticula, no CT evidence of acute diverticulitis Small bowel ileus Electronically Signed: Francisco Laguerre MD at 11:50 EDT , Discharge Plan Triage Chief Complaint: Nausea/Vomiting ED Provider: Rg Colindres Dx/Rx/DC Orders Instructions: ED Vomiting (Adult), ED Weakness (Uncertain Cause) Prescriptions: New ondansetron 4 mg tablet,disintegrating 4 mg PO Q8H PRN PRN (Reason: Nausea) Qty: 14 0RF No Action diclofenac sodium 1 % gel 2 g TOPICAL DAILY PRN (Reason: Pain Or Fever) oxycodone 5 mg tablet 5 mg PO BID PRN (Reason: Breakthrough Pain) meloxicam 15 mg tablet 15 mg PO nabumetone 750 mg tablet 750 mg PO omeprazole 40 MG capsule,delayed release(DR/EC) 40 mg PO DAILY Primary Care Provider: Erica Junior NP Referrals: Erica Junior NP, [employer] [Primary Care Provider] - Disposition Disposition: Home, Self Care Discharge Date/Time: 08/12/22 12:23
[2022-08-12] MEDS: Ondansetron 4 MG/2 ML Vial IV (09:53)
[2022-08-12] MEDS: 0.9% Normal Saline 1,000 ML 1000 ML IV (09:53)
--- NOTE | 2022-08-12 09:55 | RAD_ITS ---
STUDY: X-RAY CHEST REASON FOR EXAM: Male, 57 years old. weakness TECHNIQUE: Single AP portable view of the chest. COMPARISON: 02/04/2022 FINDINGS: The lungs are clear and expanded. There is no demonstrated pleural abnormality. Normal size heart. Normal mediastinum and ajay. Normal visualized pulmonary arteries. Normal visualized aortic arch and descending thoracic aorta. Normal visualized thoracic spine. Normal visualized ribs, clavicles, and shoulders. There is no demonstrated abnormality of the visualized soft tissue structures of the upper abdomen. RAD/Chest 1 View (Portable) IMPRESSION: Normal x-ray examination of the chest. Electronically Signed: Francisco Laguerre MD at 10:13 EDT ,
[2022-08-12 09:58] LABS: Red Blood Cells-Urine 0 SEEN /hpf (0-5); White Blood Cells 0 SEEN /hpf (0-5)
[2022-08-12 10:05] LABS: Color, Urine Yellow (Yellow); Glucose, Dipstick Normal (Normal); Ketone-Dipstick 50 mg/dl (Negative); Leukocyte Esterase-Dipstick Negative /ul (Negative); Nitrite-Dipstick Negative (Negative); Occult Blood-Urine Negative /ul (Negative); Protein-Dipstick 15 mg/dl (Negative); Urine Bilirubin Dipstick Negative (Negative); Urine Clarity Sl. Cloudy (Clear); Urine Urobilinogen 4 mg/dl (Normal)
[2022-08-12 10:10] LABS: Absolute Lymphocyte Count 0.41 X10^3/uL (0.83-4.51); Absolute Neutrophil Count 5.1 X10^3/uL (2.0-7.7); Basophil# 0.02 X10^3/uL; Basophil% 0.3 % (0-1); Eosinophil# 0.02 X10^3/uL; Eosinophils% 0.3 % (0-5); Hematocrit 52.5 % (40-54); Hemoglobin 16.9 g/dL (13.0-16.5); Lymphocyte # 0.41 X10^3/ul (0.83-4.51); Lymphocyte % 6.6 % (19-41); Mean Corp Hgb Conc 32.2 g/dL (32-36); Mean Corpuscular Volume 90.2 fL (80-94); Mean Platelet Vol. 10.8 fl (6.2-12.0); Monocyte# 0.65 X10^3/uL; Monocyte% 10.5 % (0-10); NRBC Flagged by Analyzer 0 % (0-5); Neutrophil # 5.07 X10^3/uL (2.7-7.7); Neutrophil % 81.8 % (47-70); POSITIVE DIFFERENTIAL YES; Platelet Count 182 K/mm3 (150-450); RBC Distribution Width CV 14.7 % (11.6-14.6); RBC Distribution Width SD 48.3 fl (35.1-43.9); Red Blood Count 5.82 M/mm3 (4.6-6.2); White Blood Count 6.2 K/mm3 (4.4-11.0)
[2022-08-12 10:12] LABS: Mucous, Urine 1+ /hpf (<or=2+); Squamous Epithelial Cells - UA 0-5 SEEN /hpf (0-5)
[2022-08-12 10:13] LABS: Bacteria RARE /hpf (None Seen)
[2022-08-12 10:14] LABS: Differential Indicated SCAN CRITERIA MET
[2022-08-12 10:28] LABS: ALB/GLOB Ratio 1.2 RATIO (0.9-2.4); AST(SGOT) 18 U/L (15-37); Alanine Aminotransfer ALT/SGPT 22 U/L (16-61); Albumin, Serum 3.5 g/dL (3.2-5.0); Alkaline Phosphatase 108 U/L (45-117); Anion Gap 5 (5-15); BUN 28 mg/dL (7-18); BUN/Creat Ratio 27.7 RATIO (10-20); Calcium,Total 8.3 mg/dL (8.5-10.1); Chloride 110 mmol/L (98-107); Creatinine, Serum 1.01 mg/dL (0.70-1.30); EST Glomerular Filtration Rate 81 mL/min (>60); Est Glom Filt Rate - Afr Amer 99 mL/min (>60); Estimated Creatinine Clearance 82.64 ml/min; Glucose 107 mg/dL (74-106); Lipase 128 U/L (73-393); Potassium 4.1 mmol/L (3.5-5.1); Protein, Total 6.5 g/dL (6.4-8.2); Sodium Level 142 mmol/L (136-145); Troponin-I HS 5 pg/mL (3.0-78.0)
--- NOTE | 2022-08-12 11:35 | CT_ITS ---
STUDY: CT ABDOMEN AND PELVIS WITHOUT CONTRAST REASON FOR EXAM: Male, 57 years old. left flank pain RADIATION DOSAGE (If Supplied By Facility): CTDIvol = ( 14.92 ) mGy, DLP = ( 805.27 ) mGycm TECHNIQUE: Transaxial images were obtained from the dome of the diaphragm to the symphysis pubis without oral contrast, and without intravenous contrast. Sagittal and coronal images were reconstructed. Individualized dose optimization techniques were used for this CT. COMPARISON: 01/28/2022 FINDINGS: The visualized lung bases are unremarkable. The visualized portions of the heart are within normal limits. Liver is unremarkable aside from stable simple cysts. No suspicious lesion There is non-visualization of the gallbladder, which may be secondary to either contraction or a prior cholecystectomy. Normal spleen. Normal pancreas. Normal bilateral adrenal glands. No obstructive uropathy, or suspicious solid renal lesion, stable bilateral nonobstructing renal stones. Normal visualized stomach. Nondistended fluid-filled small bowel loops are noted consistent with ileus. Routine stool in the colon with scattered colonic diverticula but no CT evidence of acute diverticulitis. The appendix is visualized and appears normal. Appendix seen on coronal recon images 63-68 Normal abdominal aorta. Normal inferior vena cava. Normal retroperitoneum. Normal urinary bladder. There is a right-sided inguinal hernia containing adipose tissue. Degenerative and postsurgical changes noted in the lumbar spine, there is a surgically stabilized grade 1 spondylolisthesis at L3-4. CT/Abdomen/Pelvis without Cont IMPRESSION: No obstructive uropathy, or suspicious solid renal lesion, bilateral nonobstructing renal stones. Stable simple hepatic cysts, no specific follow-up needed Scattered colonic diverticula, no CT evidence of acute diverticulitis Small bowel ileus Electronically Signed: Francisco Laguerre MD at 11:50 EDT ,
== END 2022-08-12 12:23 | disposition home or self-care (01) ==
PROVIDERS: Emergency Provider Student in an Organized Health Care Education/Training Program; PCP Nurse Practitioner Family; Visit Provider Student in an Organized Health Care Education/Training Program
DX: R10.32 Left lower quadrant pain (principal); R53.1 Weakness; M19.90 Unspecified osteoarthritis, unspecified site; R12 Heartburn; Z79.899 Other long term (current) drug therapy; Z20.822 Contact with and (suspected) exposure to COVID-19; Z87.891 Personal history of nicotine dependence
CPT/HCPCS: 71045; 74176; 80053; 81001; 83690; 84484; 85025; 87428; 93005; 96361; 96374; 99282; J7030; A4216; J2405

== ENCOUNTER → 2023-08-07 | Outpatient (CLI) | payer MEDICAID, SELFPAY ==
--- NOTE | 2023-08-07 10:06 | MRI_ITS ---
STUDY: MRI LUMBAR SPINE WITH AND WITHOUT CONTRAST REASON FOR EXAM: Male, 58 years old. BACK PAIN, LEFT LEG PAIN TECHNIQUE: Standardized fat and water weighted pulse sequences were obtained in the sagittal and axial planes. 17 mL of IV Clariscan was administered for the contrast portion of the examination. COMPARISON: MRI lumbar spine without contrast 08/19/2018. FINDINGS: T10-T11: (Sagittal only). Minimal anterior wedging of T11 superior endplate is from remote injury and unchanged. T10 inferior endplate is barely included without obvious abnormality. Normal disc space height, hydration and morphology. No ventral extradural defect. Normal central canal. The bilateral intervertebral neural foramina are not included. T11-T12: (Sagittal only). Normal T11 inferior endplate. Minimal anterior wedging of superior endplate is developmental or from remote injury and unchanged. Mild disc space height narrowing. No ventral extradural defect. Normal central canal and bilateral intervertebral neural foramina. T12-L1: (Sagittal only). Normal T12 inferior endplate. Very slight anterior wedging of L1 superior endplate is unchanged. Normal disc height, hydration and morphology. Small left posterior paramedian and cephalad disc protrusion (series 7, 8 and 9, image 8). This is unchanged. Normal central canal and bilateral intervertebral neural foramina. Normal lumbar lordosis. There is no substantial scoliosis. Normal conus medullaris that terminates at the lower L1 vertebral body level. L1-2: Normal endplates. Normal disc height, hydration and morphology. Normal bilateral facet joints. Normal central canal and bilateral lateral recesses. Normal bilateral intervertebral neural foramina. L2-3: Normal endplates. Normal disc height. Minimal ventral extradural defect is tiny posterior bulging annulus. This is a new finding. Mild bilateral degenerative facet arthropathy. Normal central canal and bilateral lateral recesses. Normal bilateral intervertebral neural foramina. L3-4: Metallic implant inside the disc space. Pedicular screws and zhane causing signal distortion artifacts. Pronounced disc space height narrowing. Mild increase anterolisthesis of L3 on L4. This is now grade 1 anterolisthesis. The mixed signal intensity behind the lower L3 vertebral body is uncertain for postoperative fibrosis since this area is completely obliterated by the fat-suppressed postcontrast T1 images. Mild central canal stenosis with an AP canal diameter of 9 mm, previously 8 mm. This is behind the lower L3 vertebral body level due to the anterolisthesis. Posterior bulging of the thecal sac behind the laminectomy site. The central canal is capacious at the disc level and below the disc level. Normal bilateral lateral recesses. Normal left intervertebral neural foramen. The right intervertebral neural foramen is completely obliterated by pedicular screws and zhane signal distortion artifacts. There was previous impingement of the right L3 nerve. Any relief of the cannot be evaluated. L4-5: Normal endplates. Mild disc space height narrowing. Mild left posterior paramedian disc protrusion with suspicious minimal posterior displacement of the left L5 nerve root sleeve. This was present previously. Normal central canal and right lateral recess. Mild asymmetric degenerative facet arthropathy. Normal bilateral intervertebral neural foramina. L5-S1: Normal endplates. Moderate disc space height narrowing. Grade 1 retrolisthesis of L5 on S1 is unchanged. There is now a small left posterior paramedian disc protrusion causing ventral extradural defect. No significant facet arthropathy. Normal central canal and bilateral lateral recesses. Moderate stenosis of the left intervertebral neural foramen. There is suspicious impingement of the left L5 nerve. Mild stenosis of the right intervertebral neural foramen. Normal visualized sacral ala. Normal visualized paraspinous soft tissue structures. Following IV contrast administration, there are no obvious enhancing lesions intradurally and extradurally. The metallic disc implant in the metallic pedicular screws and metallic rods accounts for signal distortion and obliteration from L3 down to L4. MRI/Spine Lumbar W/WO Contrast IMPRESSION: 1. Suboptimal postcontrast images since they are all fat suppression techniques and causing metallic signal distortion and obliteration of the soft tissue density behind the midline lower L3 vertebral body. This is uncertain for postoperative fibrosis. Post contrast images should include nonfat suppression T1-weighted images. 2. Mild increase anterolisthesis of L3 on L4, now grade 1 and minimal improvement of mild central canal stenosis at the lower L3 vertebral body level due to grade 1 anterolisthesis of L3 on. The AP canal diameter 7 mm, previously 8 mm. 3. Increased degenerative retrolisthesis of L5 on S1 is now grade 1. There is also a small left L5-S1 posterior paramedian disc protrusion causing ventral extradural defect. No obvious displacement of the left S1 nerve root sleeve. Moderate stenosis of the left L5-S1 intervertebral neural foramen with suspicious minimal impingement of the left L5 nerve is a new finding. 4. Mild left L4-L5 posterior paramedian disc protrusion with suspicious minimal posterior displacement of the left L5 nerve was present previously. This is unchanged. 5. Small left T12-L1 posterior paramedian cephalad disc protrusion (series 7, 8 and 9, image 8). This is unchanged. 6. No MRI evidence of a new lumbar extruded disc fragment. 7. No suspicious enhancing lesions intradurally and extradurally above the L3 vertebral body and below the L4 vertebral body. Electronically Signed: Tahir Dougherty MD at 14:20 EST ,
--- OUTSIDE RECORDS SUMMARY | 2023-08-07 10:13 | XMS RPT_ITS | CCD ---
Author Name Unknown Address [address] [place] [address] Organization [facility] Care Team Providers Care Behavioral Medical Director Name Role Phone MayaAnai crosskatelynn Perez Unavailable Erica Junior APRN.CNP Primary Care Provider PEPE RINCON Admitting Unavailable PEPE RINCON Attending Unavailable ERICA JUNIOR Primary Care Unavailable ERICA JUNIOR Primary Care Unavailable JAHAIRA GÓMEZ Attending Unavailable PEPE RINCON Attending Unavailable ERICA JUNIOR Primary Care Unavailable Anai Trejoe R Unavailable Erica Junior APRN.CNP Primary Care Provider ERICA JUNIOR Primary Care Unavailable EZEQUIEL CAPPS Referring Unavailable ERICA JUNIOR Primary Care Unavailable EZEQUIEL CAPPS Attending Unavailable ERICA JUNIOR Referring Unavailable ERICA JUNIOR Primary Care Unavailable TRACY HOBBS Referring Unavailable ERICA JUNIOR Primary Care Unavailable RTACY HOBBS Attending Unavailable ERICA JUNIOR Primary Care Unavailable PEPE RINCON Referring Unavailable AYDEN JACKSON ALTERNATIVE MEDICINE PRACTITIONER-C Attending UnavailERICA Mcnamara CNP Consulting Unavailable AYDEN JACKSON ALTERNATIVE MEDICINE PRACTITIONER-C Admitting UnavailAYDEN Kruger ALTERNATIVE MEDICINE PRACTITIONER-C Primary Care Unavailabl e PROVIDER, UNKNOWN Consulting Unavailable PROVIDER, UNKNOWN Consulting Unavailable MARITA KEARNEY Admitting Unavailable MARITA KEARNEY Primary Care Unavailable MARITA KEARNEY Attending Unavailable ERICA JUNIOR CNP Consulting Unavailable PROVIDER, UNKNOWN Consulting Unavailable PROVIDER, UNKNOWN Consulting Unavailable Allergies Allergy Classification Reported Allergen(s) Allergy Type Date of Onset Reaction(s) Facility (11 sources) Acetaminophen / HYDROcodone; Translations: [HYDROCODONE-ACET AMINOPHEN] Drug Allergy 9 GI Upset [facility] (9 sources) cyclobenzaprine; Translations: [CYCLOBENZAPRINE] Drug Allergy Other: See Comments [facility] (1 source) Acetaminophen / HYDROcodone Drug Allergy [facility] Repository Medications Current Medications Medication Drug Class(es) Dates Sig (Normalized) Sig (Original) sulfamethoxazole 800 mg / trimethoprim 160 mg oral tablet (1 source) Dihydrofolate Reductase Inhibitor Antibacterial, Sulfonamide Antimicrobial Start: 02-05-2022 End: 02-05-2022 sulfamethoxazole -trimethoprim (BACTRIM DS) 800-160 mg per tablet Take 1 tablet by mouth one time only for 1 dose. Take one pill immediately prior to coming to the office to have your stent removed. 1 tablet 0 02/05/2022 02/05/2022 Active Completed/Discontinued Medications Medication Drug Class(es) Dates Sig (Normalized) Sig (Original) baclofen 10 mg oral tablet (2 sources) gamma-Aminobutyri c Acid-ergic Agonist Start: 2018 End: 01-30-2022 baclofen (LIORESAL) 10 mg tablet as needed. 0 2018 01/30/2022 Discontinued Problems Active Problems Problem Classification Problem Date Documented Date Episodic/Chronic Calculus of urinary tract (15 sources) Ureteric stone; Translations: [Calculus of ureter] Onset: 01-31-2022 Episodic Esophageal disorders (9 sources) Gastroesophageal reflux disease without esophagitis; Translations: [Gastro-esophageal reflux disease without esophagitis] Onset: 03-28-2020 03-28-2020 Chronic Genitourinary symptoms and ill-defined conditions (1 source) Presence of urogenital implants; Translations: [Ureteral stent present] Onset: 02-02-2022 Chronic Hyperplasia of prostate (9 sources) Benign prostatic hypertrophy with outflow obstruction; Translations: [Benign prostatic hyperplasia with lower urinary tract symptoms] Onset: 09-15-2008 09-15-2008 Chronic Osteoarthritis (3 sources) Unilateral primary osteoarthritis, right knee; Translations: [Unilateral primary osteoarthritis, right knee] Onset: 01-27-2023 Chronic Other connective tissue disease (1 source) Bilateral trochanteric bursitis; Translations: [Trochanteric bursitis, right hip] Episodic Other connective tissue disease (1 source) History of lumbar fusion; Translations: [Arthrodesis status] Episodic Other diseases of bladder and urethra (9 sources) Bladder neck obstruction; Translations: [Bladder-neck obstruction] Onset: 09-15-2008 09-15-2008 Chronic Other nutritional; endocrine; and metabolic disorders (9 sources) Obese class I; Translations: [Obesity, unspecified] Onset: 01-31-2022 Chronic Spondylosis; intervertebral disc disorders; other back problems (6 sources) Spinal stenosis of lumbar region; Translations: [Spinal stenosis, lumbar region with neurogenic claudication] Onset: 04-15-2022 Episodic Past or Other Problems Problem Classification Problem Date Documented Date Episodic/Chronic Abdominal pain (2 sources) Generalized abdominal pain; Translations: [Generalized abdominal pain] Onset: 02-02-2022 Episodic Nausea and vomiting (9 sources) Postoperative nausea and vomiting; Translations: [Nausea with vomiting, unspecified] Onset: 03-28-2020 03-28-2020 Episodic Other acquired deformities (9 sources) Lumbar spondylolisthesis; Translations: [Spondylolisthesis, lumbar region] Onset: 03-28-2020 2020 Episodic Results Test Name Value Interpretation Reference Range Facil ity Vital Signs Date Time Vital Sign Value Performing Clinician Avi yanez 12-02-2022 15:45-0400 Body height 175.3 cm Tracy Hobbs APRN.CNP Work Phone: [facility] 12-02-2022 15:45-0400 Body weight 95.71 kg Tracy Hobbs APRN.CNP Work Phone: [facility] 12-02-2022 15:45-0400 Diastolic blood pressure 81 mm[Hg] Tracy Hobbs APRN.CNP Work Phone: [facility] 12-02-2022 15:45-0400 Heart rate 79 /min Tracy Hobbs APRN.CNP Work Phone: [facility] 12-02-2022 15:45-0400 Respiratory rate 16 /min Tracy Hobbs APRN.CNP Work Phone: [facility] 12-02-2022 15:45-0400 SaO2% (BldA) [Mass fraction] 96 % Tracy Hobbs APRN.CNP Work Phone: [facility] 12-02-2022 15:45-0400 Systolic blood pressure 133 mm[Hg] Tracy Hobbs APRN.CLINICAL DATA ASSOCIATE Work Phone: [facility] 05-06-2022 11:01-0500 Body height 175.3 cm Pepe Rincon MD Work Phone: [facility] 05-06-2022 11:01-0500 Body weight 95.25 kg Pepe Rincon MD Work Phone: [facility] 05-06-2022 11:01-0500 Diastolic blood pressure 66 mm[Hg] Pepe Rincon MD Work Phone: [facility] 05-06-2022 11:01-0500 Systolic blood pressure 108 mm[Hg] Pepe Rincon MD Work Phone: [facility] 01-31-2022 13:55-0400 Body temperature 97.7 [degF] Pepe Rincon MD Work Phone: [facility] 01-31-2022 13:55-0400 Diastolic blood pressure 88 mm[Hg] Pepe Rincon MD Work Phone: [facility] 01-31-2022 13:55-0400 Heart rate 55 /min Pepe Rincon MD Work Phone: [facility] 01-31-2022 13:55-0400 Respiratory rate 18 /min Pepe Rincon MD Work Phone: [facility] 01-31-2022 13:55-0400 SaO2% (BldA) [Mass fraction] 97 % Pepe Rincon MD Work Phone: [facility] 01-31-2022 13:55-0400 Systolic blood pressure 139 mm[Hg] Pepe Rincon MD Work Phone: [facility] 01-31-2022 09:24-0400 Body height 175.3 cm Pepe Rincon MD Work Phone: [facility] 01-31-2022 09:24-0400 Body weight 94.03 kg Pepe Rincon MD Work Phone: [facility] Encounters Encounter Date Encounter Type Care Provider Facility Start: 07-03-[address] [facility] Start: 01-27-2023 End: 02-28-2023 ambulatory AYDEN MENDOZA JACKSON [facility] Start: 12-04-2022 Telephone encounter Tracy muller [employer]OT TAMALE MAN.CLINICAL DATA ASSOCIATE Work Phone: [facility] [place] Procedures Date Procedure Procedure Detail Performing Clinician Start: 12-02-2022 Radex spine lumbosac ral 2/3 views Tracy Hobbs HOT TAMALE MAN.CLINICAL DATA ASSOCIATE Work Phone: Start: 05-06-2022 Follow-up visit Follow Up PEPE RINCON Start: 05-06-2022 Urnls dip stick/tabl et rgnt auto w/o microscopy Pepe Rincon MD Work Phone: Start: 01-31-2022 X-ray urinary tract exam with contrast material Pepe Rincon MD Work Phone: Start: 07-03-2021 Colonoscopy Tohmas edwards MD Work Phone: Plan of Treatment Date Care Activity Detail Author Start: 07-03-2031 Colonoscopy COLONOSCOPY [facility] Start: 07-03-2031 COLORECTAL CANCER SCREENING COLORECTAL CANCER SCREENING [facility] Start: 02-02-2025 DIABETES SCREEN DIABETES SCREEN [facility] Start: 04-01-2023 DIABETES SCREEN DIABETES SCREEN [facility] Start: 01-31-2023 Influenza vaccination INFLUENZA (#1) [facility] Start: 06-02-2022 DEPRESSION ASSESSMENT DEPRESSION ASSESSMENT [facility] Start: 2022 PROSTATE CANCER SCREENING DISCUSSION PROSTATE CANCER SCREENING DISCUSSION [facility] Start: 01-31-2022 Influenza vaccination [facility] Start: 06-02-2021 DEPRESSION ASSESSMENT DEPRESSION ASSESSMENT [facility] Start: 2017 Influenza vaccination LUNG CANCER SCREENING [facility] Start: 2017 SHINGRIX VACCINE (1 of 2) SHINGRIX VACCINE (1 of 2) [facility] Start: 2012 COLOGUARD (FIT-DNA) COLOGUARD (FIT-DNA) [facility] Start: [address] COLONOGRAPHY [facility] Start: 2012 FECAL OCCULT BLOOD FECAL OCCULT BLOOD [facility] Start: 2012 SIGMOIDOSCOPY SIGMOIDOSCOPY [facility] Start: 2002 LIPID SCREEN LIPID SCREEN [facility] Start: 1986 Urine microalbumin profile DTAP,TDAP,TD (1 - Tdap) [facility] Start: 1985 HEPATITIS C SCREENING HEPATITIS C SCREENING [facility] Start: 1985 HIV SCREENING HIV SCREENING [facility] Start: 1979 Adult depression screening assessment DEPRESSION SCREENING [facility] Start: 1972 COVID-19 VACCINE (1) COVID-19 VACCINE (1) [facility] Start: 1967 COVID-19 VACCINE (#1) COVID-19 VACCINE (#1) [facility] Start: 1967 HEPATITIS B (1 of 3 - 3-dose series) HEPATITIS B (1 of 3 - 3-dose series) [facility] CALCULI ANALYSIS [facility] Work Phone: Payers Date Payer Category Payer Medicaid [place] [employer] [place] [employer] [id number] 2003-Present [phone] [facility] [address] [place] [address] Medicaid [id number] 2003 Medicaid [id number] 2003 Medicaid [id number] 1967 Unknown [id number] 1967 Unknown [id number] Social History Date Type Detail Facility Start: 08-22-2016 End: 02-02-2022 Tobacco smoking status NHIS Ex-smoker [facility] End: 06-02-2009 History of tobacco use Current smoker [facility] End: 06-02-2009 History of tobacco use Cigarette Smoker [facility] Start: 08-22-2016 End: 02-02-2022 Cigarettes smoked current (pack per day) - Reported 1 [facility] Start: 08-22-2016 End: 02-02-2022 Tobacco use and exposure Smokeless tobacco non-user [facility] Start: 06-14-2021 End: 12-02-2022 Alcohol intake Ex-drinker (finding) [facility] Start: 09-17-2016 History SDOH Alcohol Comment occasionally [facility] Start: 1965 Sex Assigned At Not on file C [facility] Start: 06-19-2021 End: 01-30-2022 Exposure to SARS-CoV-2 (event) Not sure [facility] Medical Equipment Procedure Code Equipment Code Equipment Origin al Text Equipment Identifier Dates Cage Tritanium 6 d [id number] Spinal Sterile Latex Free Lumbar Posterior - [id number] Start: 2020 Screw Iona 3 Jil nium Set Ivet Spine - [id number] Start: 2020 Eric Iona 3 6mm Titanium 40mm Spinal Radiolucent - [id number] Start: 2020 Dubose Cannulat ed Polyaxial Screw 45mm X 6.5mm 68_imp Start: 2020 Screw Iona 3 Serr laurel 6.5mm 45mm Bone Polyaxial Nonsterile Spine - [id number] Start: 2020 Stent Contour 6x 24 W/O Wire - [id number] Start: 01-31-2022 Clinical Notes 06-14-2021 to 12-04-2022 Telephone Encounter - Tracy Hobbs APRN.CROW - 12/04/2022 12:28 PM Kodi Burrows, RT(R) - 12/02/2022 4:30 PM Jeff Hobbs APRN.CNP - 12/02/2022 2:57 PM EDTDiszariarge Instr - Other Orders Note Date & Type Note Facility 12-04-2022 Miscellaneous Notes Call made to patient to discuss image review. XR Lumbar shows intact hardware. Would recommend CT Lumbar to further assess fusion status. Tracy Hobbs APRN.CNP documented in this encounter [facility] 12-02-2022 Note HNO ID: [id number] Author: RT Dena(R) Service: Radiology Author Type: Technologist Type: Progress Notes Filed: 12/02/2022 4:10 PM Note Text: Radiology Service Progress Note PATIENT NAME: Sho Villatoro Jr. DATE OF SERVICE: December 02, 2022 TIME: 4:10 PM PATIENT IDENTITY VERIFICATION COMPLETED USING TWO (2) IDENTIFIERS: Name and Date of confirmed by patient verbally. FALL SCREENING: Has the patient had 2 falls in the last year or 1 fall with injury or currently using an Ambulatory Assistive Device (Walker, Cane, Wheelchair, Crutches, etc.)? No PATIENT GENDER DATA: Male PATIENT RELEVANT IMPLANT DATA REVIEWED: Not Applicable RADIOLOGY DEPARTMENT: General X-ray: Exam(s) Completed: Spine X-Ray(s): Lumbar AP / LAT / L5-S1 PERIPHERAL IV DATA: Not applicable SIGNED BY: RT Dena(R) December 02, 2022 4:10 PM [facility] 12-02-2022 Note HNO ID: [id number] Author: Tracy Hobbs APRN.CNP Service: ? Author Type: Nurse Practitioner Type: Progress Notes Filed: 12/04/2022 9:25 AM Note Text: SPINE SURGERY ESTABLISHED This is an in-person visit. DATE OF SERVICE: 12/02/2022 DATE OF LAST VISIT: Visit date not found SUBJECTIVE: HPI:Sho Villatoro Jr. is a 57 year old male presenting with spouse. Previous L3-L4 decompression and PSF/TLIF by Dr. Capps (2020). C/o low back pain that radiates down bilateral lower extremities (buttock, posterior thigh, calf, big toe) L>R. Numbness into right anterior thigh. Aggravated with standing/walking. Alleviated with sitting in recliner chair. Denies any loss in bowel/bladder control or balance instability. Conservative Management -Physical Therapy- completed -Robaxin PRN -Oxycodone 5mg BID -NSAIDS- Mobic PRN PAIN EVALUATION 12/02/2022 1541 Pain Level: 8 Pain Location: Back-Lower BUTTOCK Description: Sharp;Shooting;Stabbing;Stiffne ss;Aching;Sore;Throbbing;Tingli ng;Tightness Duration Amount of Time: 3 Duration Units: Months Frequency: Continuous Intervention/Comfort measure: Medication;Therapeutic techniques-CPRP;Pillow support;Positioning AMBULATORY STATUS: Independent Community Distances ANTIPLATELET OR ANTICOAGULATION STATUS: No REVIEW OF SYSTEMS: GENERAL: No weight loss or malaise MUSCULOSKELETAL: Negative for joint pain, swelling or muscle pain NEURO: No history of headaches, syncope, paralysis, seizures or tremors MEDICATIONS: Magnesium 250 mg tab Take 250 mg by mouth every morning. tamsulosin (FLOMAX) 0.4 mg Take 0.4 mg by mouth every morning. meloxicam (MOBIC) 15 mg tablet Take 15 mg by mouth every morning. Over 2 weeks ago - last dose methocarbamol (ROBAXIN) 750 mg tablet Take 750 mg by mouth as needed. oxyCODONE IR (ROXICODONE) 5 mg immediate release tablet Take by mouth every 8 hours as needed for pain. Omeprazole 40 mg capsule Take 1 capsule by mouth once daily. (Patient taking differently: Take 40 mg by mouth every morning.) Patient Entered Questionnaires PROMIS Score Percentiles Percentiles provide an indication of how the patient's score ranks in relation to the general population. Higher percentile rankings indicate better function/quality of life. 50th percentile is the average of the general population and indicates half of respondents had a worse score. Depression Screening: PHQ-9 Self-Harm (Item 9) response options: 0 Not at all 1 Several days 2 More than half the days 3 Nearly every day PHQ-9 Levels: 0-4 No to mild depression 5-9 Mild depression 10-14 Moderate depression 15-19 Moderately severe depression 20-27 Severe depression OBJECTIVE: PHYSICAL EXAM: BP 133/81 Pulse 79 Resp 16 Ht 5' 9 (1.75m) Wt 211 lb (95.7kg) SpO2 96% BMI 31.15 kg/(m2). GENERAL APPEARANCE: Well nourished, well developed, and no apparent distress. NEURO PSYCH: Patient oriented to person, place, and time. Mood pleasant. Benign affect. MUSCULOSKELETAL VISUAL INSPECTION CERVICAL: WNL THORACIC: WNL LUMBAR: WNL MOTOR: 5/5 in all muscle groups. Except left DF 4+/5. GAIT: Abnormal. Antalgic. DATA REVIEW:Diagnostic tests reviewed for today's visit, films/specimens were personally reviewed by me: No additional images reviewed today ASSESSMENT/PLAN (M54.16) Lumbar radiculopathy (primary encounter diagnosis) Sho is a pleasant 57 year old male who presents to the office approx. 3 years s/p a L4-L5 decompression PSF/TLIF. Did well initially, now having low back pain that radiates down bilateral lower extremities, L>R. Discussed the need for further work up. Order placed for XR Lumbar to assess hardware and alignment. May consider CT Lumbar next. Sho Villatoro Jr. will continue with medical management of his/her condition. 1. Imaging: Lumbar X-Ray 2. Follow up: Following above Imaging Ordered: None The majority of the visit was spent counseling and/or coordinating care for the patient. The patient was counseled regarding lumbar radiculopathy. Total face to face time was 20 minutes. SIGNATURE: Tracy Hobbs APRN.CLINICAL DATA ASSOCIATE PATIENT NAME: Sho Villatoro Jr. DATE: December 02, 2022 TIME: 3:06 PM PAGER: [facility] 12-02-2022 History of Presen t illness Narrative Radiology Service Progress Note PATIENT NAME: Sho Villatoro Jr. DATE OF SERVICE: December 02, 2022 TIME: 4:10 PM PATIENT IDENTITY VERIFICATION COMPLETED USING TWO (2) IDENTIFIERS: Name and Date of confirmed by patient verbally. FALL SCREENING: Has the patient had 2 falls in the last year or 1 fall with injury or currently using an Ambulatory Assistive Device (Walker, Cane, Wheelchair, Crutches, etc.)? No PATIENT GENDER DATA: Male PATIENT RELEVANT IMPLANT DATA REVIEWED: Not Applicable RADIOLOGY DEPARTMENT: General X-ray: Exam(s) Completed: Spine X-Ray(s): Lumbar AP / LAT / L5-S1 PERIPHERAL IV DATA: Not applicable SIGNED BY: RT Dena(R) December 02, 2022 4:10 PM documented in this encounter [facility] 12-02-2022 History of Presen t illness Narrative Images from the original note were not included. SPINE SURGERY ESTABLISHED This is an in-person visit. DATE OF SERVICE: 12/02/2022 DATE OF LAST VISIT: Visit date not found SUBJECTIVE: HPI:Sho Villatoro Jr. is a 57 year old male presenting with spouse. Previous L3-L4 decompression and PSF/TLIF by Dr. Capps (2020). C/o low back pain that radiates down bilateral lower extremities (buttock, posterior thigh, calf, big toe) L>R. Numbness into right anterior thigh. Aggravated with standing/walking. Alleviated with sitting in recliner chair. Denies any loss in bowel/bladder control or balance instability. Conservative Management -Physical Therapy- completed -Robaxin PRN -Oxycodone 5mg BID -NSAIDS- Mobic PRN PAIN EVALUATION 12/02/2022 1541 Pain Level: 8 Pain Location: Back-Lower BUTTOCK Description: Sharp;Shooting;Stabbing;Stiffne ss;Aching;Sore;Throbbing;Tingli ng;Tightness Duration Amount of Time: 3 Duration Units: Months Frequency: Continuous Intervention/Comfort measure: Medication;Therapeutic techniques-CPRP;Pillow support;Positioning AMBULATORY STATUS: Independent Community Distances ANTIPLATELET OR ANTICOAGULATION STATUS: No REVIEW OF SYSTEMS: GENERAL: No weight loss or malaise MUSCULOSKELETAL: Negative for joint pain, swelling or muscle pain NEURO: No history of headaches, syncope, paralysis, seizures or tremors MEDICATIONS: Magnesium 250 mg tab Take 250 mg by mouth every morning. tamsulosin (FLOMAX) 0.4 mg Take 0.4 mg by mouth every morning. meloxicam (MOBIC) 15 mg tablet Take 15 mg by mouth every morning. Over 2 weeks ago - last dose methocarbamol (ROBAXIN) 750 mg tablet Take 750 mg by mouth as needed. oxyCODONE IR (ROXICODONE) 5 mg immediate release tablet Take by mouth every 8 hours as needed for pain. Omeprazole 40 mg capsule Take 1 capsule by mouth once daily. (Patient taking differently: Take 40 mg by mouth every morning.) Patient Entered Questionnaires PROMIS Score Percentiles Percentiles provide an indication of how the patient's score ranks in relation to the general population. Higher percentile rankings indicate better function/quality of life. 50th percentile is the average of the general population and indicates half of respondents had a worse score. Depression Screening: PHQ-9 Self-Harm (Item 9) response options: 0 Not at all 1 Several days 2 More than half the days 3 Nearly every day PHQ-9 Levels: 0-4 No to mild depression 5-9 Mild depression 10-14 Moderate depression 15-19 Moderately severe depression 20-27 Severe depression OBJECTIVE: PHYSICAL EXAM: BP 133/81 Pulse 79 Resp 16 Ht 5' 9 (1.75m) Wt 211 lb (95.7kg) SpO2 96% BMI 31.15 kg/(m^2). GENERAL APPEARANCE: Well nourished, well developed, and no apparent distress. NEURO PSYCH: Patient oriented to person, place, and time. Mood pleasant. Benign affect. MUSCULOSKELETAL VISUAL INSPECTION CERVICAL: WNL THORACIC: WNL LUMBAR: WNL MOTOR: 5/5 in all muscle groups. Except left DF 4+/5. GAIT: Abnormal. Antalgic. DATA REVIEW:Diagnostic tests reviewed for today's visit, films/specimens were personally reviewed by me: No additional images reviewed today ASSESSMENT/PLAN (M54.16) Lumbar radiculopathy (primary encounter diagnosis) Sho is a pleasant 57 year old male who presents to the office approx. 3 years s/p a L4-L5 decompression PSF/TLIF. Did well initially, now having low back pain that radiates down bilateral lower extremities, L>R. Discussed the need for further work up. Order placed for XR Lumbar to assess hardware and alignment. May consider CT Lumbar next. Sho Villatoro Jr. will continue with medical management of his/her condition. 1. Imaging: Lumbar X-Ray 2. Follow up: Following above Imaging Ordered: None The majority of the visit was spent counseling and/or coordinating care for the patient. The patient was counseled regarding lumbar radiculopathy. Total face to face time was 20 minutes. SIGNATURE: Tracy Hobbs APRN.CNP PATIENT NAME: Sho Villatoro Jr. DATE: December 02, 2022 TIME: 3:06 PM PAGER: documented in this encounter [facility] 06-11-2022 Note HNO ID: [id number] Author: Teresa Razo RN Service: ? Author Type: Registered Nurse Type: Progress Notes Filed: 06/11/2022 3:13 PM Note Text: PATIENT MEDICATION INSTRUCTIONS Please read below carefully for your personalized instructions. Medications: If you are on blood thinner or anticoagulants including aspirin, please confirm with your surgical team on when to stop these medications. Unless instructed differently by your surgical team, stay on all of your medications until your surgery. Pre-Surgery Med Instructions Medication Instructions Magnesium 250 mg tab Do not take the morning of surgery tamsulosin (FLOMAX) 0.4 mg Take morning of surgery with a sip of water, no other fluids meloxicam (MOBIC) 15 mg tablet Follow Surgeon's instructions methocarbamol (ROBAXIN) 750 mg tablet May take if needed oxyCODONE IR (ROXICODONE) 5 mg immediate release tablet May take if needed Omeprazole 40 mg capsule Take morning of surgery with a sip of water, no other fluids If you have any medication changes between receiving these instructions and your surgery date, please provide this updated information with the nurse who calls you the week day prior to your surgical procedure so we can update your list and provide you with updated instructions for the morning of your procedure. PRE-PROCEDURE INSTRUCTIONS TO PREPARE FOR YOUR PROCEDURE: Your arrival time for your procedure is 0700 Do NOT eat any solid foods after MIDNIGHT the night prior to your procedure - this includes gum or mints. You can drink clear liquids* up until 0500 which is 2 hours before your arrival time. *Clear liquids = water, carbohydrate drink (sports drink that is clear or yellow in color), Ensure Pre-Surgery (given by TOMASZ or your ), fruit juice without pulp (apple/cranberry), clear tea, black coffee (no cream). NO ALCOHOL. Shower the morning of the procedure, put on clean clothes, and have clean sheets for your bed to help prevent infection after your procedure. Leave all valuables such as jewelry including rings, piercings, wallets, and purses at home. Wear comfortable, loose-fitting clothing. If you wear glasses or contacts, please bring a case. SPECIAL INSTRUCTIONS: If instructed, bring your first voided urine specimen with you. If you were provided skin preparation to use prior to your procedure, complete this as directed. If you were provided Ensure Pre-Surgery drink, you need to drink this at This should be consumed quickly (in less than 5 minutes, rather than sipped over time) If you use crutches or a walker, bring them with you. If you have a home CPAP/BIPAP machine, bring it with you. If you were instructed to complete a fleets enema or bowel prep, complete as directed. Bring copy of Living Will/Power of Tail Trimmer. Do not smoke or chew. If you use tobacco, quit or at least cut down before surgery. Do not smoke or chew after midnight the day before your surgery. This effects bleeding, infection, healing, and so much more. Do not take any Diet or Herbal Supplements 2 weeks prior to your surgery date. Please notify your physician if there is any change in your physical condition such as a cold, cough, fever, sore throat, or skin irritation near the surgical site. Visitors under the age of 14 are restricted in the Surgery Center. UPON ARRIVAL: Access to [facility] (the glass building) is located on [address] [employer] parking is available for your convenience from 5am-5pm- there is a $5.00 charge for this service. Take the elevators directly inside the entrance to the 1st Floor Surgery Lobby. Sign in at the podium located to the left when you get off the elevators. A payment may be expected at the time of service. One visitor may come back to the preoperative area with you. The preoperative staff will be reviewing your medical history, please let them know if you prefer not to have a visitor with you during this time. Once you are ready for surgery, two visitors at a time are permitted in your preoperative room. [facility] 06-11-2022 Note HNO ID: [id number] Author: Yulia House APRN.CLINICAL DATA ASSOCIATE Service: ? Author Type: Nurse Practitioner Type: Progress Notes Filed: 06/11/2022 2:33 PM Note Text: PATIENT MEDICATION INSTRUCTIONS Please read below carefully for your personalized instructions. Medications: If you are on blood thinner or anticoagulants including aspirin, please confirm with your surgical team on when to stop these medications. Unless instructed differently by your surgical team, stay on all of your medications until your surgery. Pre-Surgery Med Instructions Medication Instructions Magnesium 250 mg tab Do not take the morning of surgery tamsulosin (FLOMAX) 0.4 mg Take morning of surgery with a sip of water, no other fluids meloxicam (MOBIC) 15 mg tablet Follow Surgeon's instructions methocarbamol (ROBAXIN) 750 mg tablet May take if needed oxyCODONE IR (ROXICODONE) 5 mg immediate release tablet May take if needed Omeprazole 40 mg capsule Take morning of surgery with a sip of water, no other fluids If you have any medication changes between receiving these instructions and your surgery date, please provide this updated information with the nurse who calls you the week day prior to your surgical procedure so we can update your list and provide you with updated instructions for the morning of your procedure. [facility] 06-10-2022 Miscellaneous Notes I let pt know ESWL procedure could not be done without anesthesia. He stated that he would like to cancel the surgery because he doesn't want to be intubated. So surgery will be canceled. documented in this encounter [facility] 06-10-2022 Miscellaneous Notes I will not be able to perform the ESWL procedure without anesthesia. Pt called in about his surgery next week, he wants to do his surgery without anaesthesia, he doesn't like be intubated. How to proceed? documented in this encounter [facility] 05-06-2022 Note HNO ID: [id number] Author: Pepe Rincon MD Service: ? Author Type: Physician Type: Progress Notes Filed: 05/06/2022 11:30 AM Note Text: ESTABLISHED PATIENT OFFICE VISIT Follow-up kidney stones. He denies any recent colic. He also denies any bothersome lower urinary tract symptoms or gross hematuria. He did have an isolated event of dysuria today on his way into the office visit. I reviewed the KUB images. He does have a faint grouping of calcifications left upper pole as well as the right mid. LAB RESULTS Creatinine Date Value Ref Range Status 02/02/2022 1.08 0.50 - 1.40 mg/dL Final Comment: Patients receiving either N-Acetylcysteine (NAC) or Metamizole prior to venipuncture, may have falsely depressed results. No results found for: PSA, PSASC GLUCOSE UA (POCT) (mg/dL) Date Value 05/06/2022 Negative BILIRUBIN UA (POCT) (no units) Date Value 05/06/2022 Negative KETONE UA (POCT) (mg/dL) Date Value 05/06/2022 Negative SPECIFIC GRAVITY UA (POCT) (no units) Date Value 05/06/2022 1.010 HEMOGLOBIN/BLOOD UA (POCT) (no units) Date Value 05/06/2022 Trace-intact (A) PH UA (POCT) (no units) Date Value 05/06/2022 6.0 PROTEIN UA (POCT) (mg/dL) Date Value 05/06/2022 Negative UROBILINOGEN UA (POCT) (E.U./dL) Date Value 05/06/2022 0.2 NITRITE UA (POCT) (no units) Date Value 05/06/2022 Negative LEUKOCYTES UA (POCT) (no units) Date Value 05/06/2022 Negative COLOR UA (POCT) (no units) Date Value 05/06/2022 Yellow CLARITY UA (POCT) (no units) Date Value 05/06/2022 Clear ] ALLERGIES Allergen Reactions Flexeril [Cyclobenz* Other: See Comments Fever Vicodin [Hydrocodon* GI Upset MEDICATIONS: tamsulosin (FLOMAX) 0.4 mg Take 0.4 mg by mouth every morning. meloxicam (MOBIC) 15 mg tablet Take 15 mg by mouth every morning. Over 2 weeks ago - last dose methocarbamol (ROBAXIN) 750 mg tablet Take 750 mg by mouth as needed. oxyCODONE IR (ROXICODONE) 5 mg immediate release tablet Take by mouth every 8 hours as needed for pain. Omeprazole 40 mg capsule Take 1 capsule by mouth once daily. (Patient taking differently: Take 40 mg by mouth every morning.) keTORolac (TORADOL) 10 mg tablet Take 10 mg by mouth every 8 hours as needed. Last dose 01/29 (Patient not taking: Reported on 05/06/2022) cetirizine (ZYRTEC) 10 mg tablet Take 10 mg by mouth as needed. (Patient not taking: Reported on 05/06/2022) gabapentin (NEURONTIN) 300 mg capsule Take 300 mg by mouth three times daily. (Patient not taking: Reported on 05/06/2022) REVIEW OF SYSTEMS GENERAL: No unintentional weight loss, malaise or fevers. NEUROLOGIC: pt is alert and oriented GASTROINTESTINAL: No nausea, vomiting, or diarrhea GENITOURINARY: See HPI MUSCULOSKELETAL: Negative for joint pain or swelling, back pain or muscle pain SKIN: Negative for lesions, rash, and itching. ACTIVE PROBLEM LIST Hypertrophy of Prostate With Urinary Obstruction and Other Lower Urinary Tract Symptoms (Luts) Bladder Neck Obstruction Gastroesophageal Reflux Disease Without Esophagitis Ponv (Postoperative Nausea and Vomiting) Spondylolisthesis of Lumbar Region Obesity, Class I, Bmi 30-34.9 Kidney Stones Kidney Stone HISTORIES PAST MEDICAL HISTORY Diagnosis Date Acid reflux Arthritis Kidney stones Kidney stones The stone was composed of calcium oxalate monohydrate previously Low back pain Snoring FAMILY HISTORY Problem Relation Age of Onset Thyroid Mother Heart Father cabg PAST SURGICAL HISTORY Procedure Laterality Date BACK SURGERY HX 4 screws/2plates CHOLECYSTECTOMY HX COLONOSCOPY FLX DX W/COLLJ SPEC WHEN PFRMD 09/17/2016 normal - 10 year follow up COLONOSCOPY SCREENING 07/03/2021 repeat in 10 years EGD TRANSORAL BIOPSY SINGLE/MULTIPLE 09/17/2016 EGD W/O [facility] SPEC VARICIES INJ 07/03/2021 JOINT REPLACEMENT HX shoulter surgery LAPAROSCOPY SURG CHOLECYSTECTOMY 08/17/2018 Cholecystectomy, lap PAST SURGICAL HISTORY OF Right 1989 tendon repair right finger SOCIAL HISTORY Social History Tobacco Use Smoking status: Former Packs/day: 1.00 Years: 25.00 Pack years: 25.00 Types: Cigarettes Quit date: 2009 Years since quittin.9 Smokeless tobacco: Never Vaping Use Vaping Use: Never used Substance Use Topics Alcohol use: Not Currently Comment: occasionally Drug use: No PHYSICAL EXAMINATION General appearance: Well appearing, alert, in no acute distress, well-hydrated, well nourished Psych Alert and oriented to person, place and time Genitourinary: MALE EXAM: Exam NOT Indicated ASSESSMENT/PLAN: 1. Kidney stone - ICD9: 592.0, ICD10: N20.0 We discussed prevention. Because of the pain he had with his last stone passage, he would like to proceed with ESWL of the stones. His left-sided stone burden appeared greater. I will proceed with ESWL of the left. - SURGICAL REQUEST - ELECTIVE (01/2020) Peep Rincon MD [facility] 05-06-2022 History of Presen t illness Narrative ESTABLISHED PATIENT OFFICE VISIT Follow-up kidney stones. He denies any recent colic. He also denies any bothersome lower urinary tract symptoms or gross hematuria. He did have an isolated event of dysuria today on his way into the office visit. I reviewed the KUB images. He does have a faint grouping of calcifications left upper pole as well as the right mid. LAB RESULTS Creatinine Date Value Ref Range Status 02/02/2022 1.08 0.50 - 1.40 mg/dL Final Comment: Patients receiving either N-Acetylcysteine (NAC) or Metamizole prior to venipuncture, may have falsely depressed results. No results found for: PSA, PSASC GLUCOSE UA (POCT) (mg/dL) Date Value 05/06/2022 Negative BILIRUBIN UA (POCT) (no units) Date Value 05/06/2022 Negative KETONE UA (POCT) (mg/dL) Date Value 05/06/2022 Negative SPECIFIC GRAVITY UA (POCT) (no units) Date Value 05/06/2022 1.010 HEMOGLOBIN/BLOOD UA (POCT) (no units) Date Value 05/06/2022 Trace-intact (A) PH UA (POCT) (no units) Date Value 05/06/2022 6.0 PROTEIN UA (POCT) (mg/dL) Date Value 05/06/2022 Negative UROBILINOGEN UA (POCT) (E.U./dL) Date Value 05/06/2022 0.2 NITRITE UA (POCT) (no units) Date Value 05/06/2022 Negative LEUKOCYTES UA (POCT) (no units) Date Value 05/06/2022 Negative COLOR UA (POCT) (no units) Date Value 05/06/2022 Yellow CLARITY UA (POCT) (no units) Date Value 05/06/2022 Clear ] ALLERGIES Allergen Reactions Flexeril [Cyclobenz* Other: See Comments Fever Vicodin [Hydrocodon* GI Upset MEDICATIONS: tamsulosin (FLOMAX) 0.4 mg Take 0.4 mg by mouth every morning. meloxicam (MOBIC) 15 mg tablet Take 15 mg by mouth every morning. Over 2 weeks ago - last dose methocarbamol (ROBAXIN) 750 mg tablet Take 750 mg by mouth as needed. oxyCODONE IR (ROXICODONE) 5 mg immediate release tablet Take by mouth every 8 hours as needed for pain. Omeprazole 40 mg capsule Take 1 capsule by mouth once daily. (Patient taking differently: Take 40 mg by mouth every morning.) keTORolac (TORADOL) 10 mg tablet Take 10 mg by mouth every 8 hours as needed. Last dose 01/29 (Patient not taking: Reported on 05/06/2022) cetirizine (ZYRTEC) 10 mg tablet Take 10 mg by mouth as needed. (Patient not taking: Reported on 05/06/2022) gabapentin (NEURONTIN) 300 mg capsule Take 300 mg by mouth three times daily. (Patient not taking: Reported on 05/06/2022) REVIEW OF SYSTEMS GENERAL: No unintentional weight loss, malaise or fevers. NEUROLOGIC: pt is alert and oriented GASTROINTESTINAL: No nausea, vomiting, or diarrhea GENITOURINARY: See HPI MUSCULOSKELETAL: Negative for joint pain or swelling, back pain or muscle pain SKIN: Negative for lesions, rash, and itching. ACTIVE PROBLEM LIST Hypertrophy of Prostate With Urinary Obstruction and Other Lower Urinary Tract Symptoms (Luts) Bladder Neck Obstruction Gastroesophageal Reflux Disease Without Esophagitis Ponv (Postoperative Nausea and Vomiting) Spondylolisthesis of Lumbar Region Obesity, Class I, Bmi 30-34.9 Kidney Stones Kidney Stone HISTORIES PAST MEDICAL HISTORY Diagnosis Date Acid reflux Arthritis Kidney stones Kidney stones The stone was composed of calcium oxalate monohydrate previously Low back pain Snoring FAMILY HISTORY Problem Relation Age of Onset Thyroid Mother Heart Father cabg PAST SURGICAL HISTORY Procedure Laterality Date BACK SURGERY HX 4 screws/2plates CHOLECYSTECTOMY HX COLONOSCOPY FLX DX W/COLLJ SPEC WHEN PFRMD 09/17/2016 normal - 10 year follow up COLONOSCOPY SCREENING 07/03/2021 repeat in 10 years EGD TRANSORAL BIOPSY SINGLE/MULTIPLE 09/17/2016 EGD W/O [facility] SPEC VARICIES INJ 07/03/2021 JOINT REPLACEMENT HX shoulter surgery LAPAROSCOPY SURG CHOLECYSTECTOMY 08/17/2018 Cholecystectomy, lap PAST SURGICAL HISTORY OF Right 1989 tendon repair right finger SOCIAL HISTORY Social History Tobacco Use Smoking status: Former Packs/day: 1.00 Years: 25.00 Pack years: 25.00 Types: Cigarettes Quit date: 2009 Years since quittin.9 Smokeless tobacco: Never Vaping Use Vaping Use: Never used Substance Use Topics Alcohol use: Not Currently Comment: occasionally Drug use: No PHYSICAL EXAMINATION General appearance: Well appearing, alert, in no acute distress, well-hydrated, well nourished Psych Alert and oriented to person, place and time Genitourinary: MALE EXAM: Exam NOT Indicated ASSESSMENT/PLAN: 1. Kidney stone - ICD9: 592.0, ICD10: N20.0 We discussed prevention. Because of the pain he had with his last stone passage, he would like to proceed with ESWL of the stones. His left-sided stone burden appeared greater. I will proceed with ESWL of the left. - SURGICAL REQUEST - ELECTIVE (01/2020) Pepe Rincon MD documented in this encounter [facility] 04-18-2022 Note HNO ID: [id number] Author: RT Andres(R) Service: ? Author Type: Electrical Line Worker Type: Progress Notes Filed: 04/18/2022 12:36 PM Note Text: Radiology Service Progress Note PATIENT NAME: Sho Villatoro Jr. DATE OF SERVICE: April 18, 2022 TIME: 12:22 PM PATIENT IDENTITY VERIFICATION COMPLETED USING TWO (2) IDENTIFIERS: Name and Date of confirmed by patient verbally. FALL SCREENING: Has the patient had 2 falls in the last year or 1 fall with injury or currently using an Ambulatory Assistive Device (Walker, Cane, Wheelchair, Crutches, etc.)? No PATIENT GENDER DATA: Male PATIENT RELEVANT IMPLANT DATA REVIEWED: Yes RADIOLOGY DEPARTMENT: General X-ray: Exam(s) Completed: Abdomen X-Ray: Abdomen PERIPHERAL IV DATA: Not applicable SIGNED BY: RT Andres(R) April 18, 2022 12:22 PM [facility] 04-15-2022 Note HNO ID: [id number] Author: RT Jhonatan(R) Service: ? Author Type: Technologist Type: Progress Notes Filed: 04/15/2022 9:24 AM Note Text: Radiology Service Progress Note PATIENT NAME: Sho Villatoro Jr. DATE OF SERVICE: April 15, 2022 TIME: 9:23 AM PATIENT IDENTITY VERIFICATION COMPLETED USING TWO (2) IDENTIFIERS: Name and Date of confirmed by patient verbally. FALL SCREENING: Has the patient had 2 falls in the last year or 1 fall with injury or currently using an Ambulatory Assistive Device (Walker, Cane, Wheelchair, Crutches, etc.)? No PATIENT GENDER DATA: Male PATIENT RELEVANT IMPLANT DATA REVIEWED: Yes RADIOLOGY DEPARTMENT: MR; Exam(s) Completed: Spine: Lumbar spine PERIPHERAL IV DATA: Not applicable SIGNED BY: RT Jhonatan(R) April 15, 2022 9:23 AM [facility] 03-28-2022 Note HNO ID: [id number] Author: Ezequiel Capps MD Service: ? Author Type: Physician Type: Progress Notes Filed: 03/28/2022 9:19 AM Note Text: Interval history: Sho is now approx. 3 years s/p a L3-L4 TLIF. He did very well post-op, but now has worsening low back pain that radiates into his buttocks (R>L). No radiating pain past his knee. He is taking Meloxicam. PE: incision healed, good posture, no pain with hip ROM, 5/5 ta/gsc/ehl, ttp right GT bursa X-rays (printed from OSH) show solid fusion L3-L4, L5-S1 DDD A/P: Sho is now approx. 3 years s/p a L3-L4 TLIF. He did very well post-op, but now has worsening low back pain that radiates into his buttocks (R>L). No radiating pain past his knee. Recommend new MRI lumbar spine. Gave script for PT. He is going to get a right GT bursa steroid injection with pain doc. Will call patient after MRI is done. Explained that treatment for axial low back pain is typically with non-op care. Ezequiel Capps MD [facility] 03-28-2022 History of Presen t illness Narrative Interval history: Sho is now approx. 3 years s/p a L3-L4 TLIF. He did very well post-op, but now has worsening low back pain that radiates into his buttocks (R>L). No radiating pain past his knee. He is taking Meloxicam. PE: incision healed, good posture, no pain with hip ROM, 5/5 ta/gsc/ehl, ttp right GT bursa X-rays (printed from OSH) show solid fusion L3-L4, L5-S1 DDD A/P: Sho is now approx. 3 years s/p a L3-L4 TLIF. He did very well post-op, but now has worsening low back pain that radiates into his buttocks (R>L). No radiating pain past his knee. Recommend new MRI lumbar spine. Gave script for PT. He is going to get a right GT bursa steroid injection with pain doc. Will call patient after MRI is done. Explained that treatment for axial low back pain is typically with non-op care. Ezequiel Capps MD documented in this encounter [facility] 01-31-2022 Note HNO ID: [id number] Author: Remedios Zheng APRN.SHOVE UP Service: Anesthesiology Author Type: Nurse Customs Compliance Manager Type: Anesthesia Procedure Notes Filed: 01/31/2022 11:38 AM Note Text: ANESTHESIOLOGY PROCEDURE NOTE Airway General Information Procedure Start Time/Medication Administration: 01/31/2022 11:22 AM Patient location during procedure: OR Staffing Anesthesiologist: Charles Hair MD SHOVE UP: Remedios Zheng APRN.SHOVE UP Performed by: SHIRA Indications and Patient Condition Indications for airway management: anesthesia Preoxygenated: yes anesthesia circuit Patient position: sniffing Difficult Mask: No Final Airway Details Final airway type: supraglottic airway Number of attempts at approach: 1 Final Supraglottic Airway: LMA Classic Size 5 Seal Adequate: yes Comments Pre o2, IV induction, LMA #5 lubricated, placed atraumatic, ( scabbed area noted middle top upper lip prior to LMA placement), +ETCO2, good seal, no change in dentition. VSS. Dr. Mcgowan present. SIGNATURE: Remedios Zheng APRN.SHOVE UP PATIENT NAME: Sho Villatoro Jr. DATE: January 31, 2022 TIME: 11:36 AM CSN: [id number] [facility] 01-31-2022 Hospital Discharg e instructions Pepe Rincon MD - 01/31/2022 12:05 PM EDT There are 3 things to anticipate with a ureteral stent. 1.) You may have a constant sensation that you need to urinate. 2.) When you empty your bladder your side make. 3.) It is normal to have blood in the urine as long as the stent is in place. The more active you are, the more blood you may have. It takes very little blood to make your urine turn red. documented in this encounter [facility] 01-31-2022 Miscellaneous Notes OPERATIVE/PROCEDURE REPORT LOG ID: [id number] SURGERY/PROCEDURE DATE: 01/31/2022 INCISION/PROCEDURE START TIME: 11:24 AM INCISION CLOSE/PROCEDURE END TIME: 11:49 AM SURGEON(S)/PROCEDURALIST(S) AND JAVA ORACLE DEVELOPER(S): Surgeon(s) and Role: * Pepe Rincon MD - Primary No Additional Staff SURGERY/PROCEDURE(S): Cystoscopy with bilateral retrograde pyelograms and left ureteroscopic stone extraction ANESTHESIA: General SURGERY/PROCEDURE DETAILS: The patient was administered IV antibiotics and taken to the operating room where bilateral SCDs placed. A general anesthetic was administered and the patient was placed into the lithotomy position. The patient was prepped with ChloraPrep and sterilely draped. I used a 22 Mongolian cystoscope to examine the bladder. There were no obvious bladder lesions. The ureteral orifices were orthotopic. I performed bilateral retrograde pyelograms. The right retrograde pyelogram showed no hydronephrosis or filling defect. The left retrograde pyelogram confirmed a filling defect in the left distal ureter. I passed 2 0.038 Glidewires up the left ureter beyond the stone and into the renal pelvis. I drained the bladder with the cystoscope and then passed a semirigid ureteroscope into the left distal ureter. I fractured the stone with a holmium laser and then removed the fragments with a basket. I removed the ureteroscope and backloaded the wire through the cystoscope. I passed a 6 Mongolian 24 cm stent under fluoroscopic and direct visualization. I drained the bladder with the cystoscope. PRE-OP/PRE-PROCEDURE DIAGNOSIS: Bilateral ureteral stones POST-OP/POST-PROCEDURE DIAGNOSIS: Passed right ureteral stone. Left ureteral stone. ESTIMATED BLOOD LOSS: 0 ml SPECIMENS: Ureteral stone for chemical analysis IMPLANTABLE DEVICES: None DRAINS: 6 Mongolian 24 cm double-pigtail left ureteral stent COMPLICATIONS: None PARTICIPATION IN SURGERY/PROCEDURE: I/primary surgeon/proceduralist performed the procedure with assistance. SIGNATURE: Pepe Rincon MD PATIENT NAME: Sho Villatoro Jr. DATE: January 31, 2022 TIME: 12:05 PM 56yo obese male, exsmoker. PMH: seasonal allergies, GERD, chronic back pain on oxy IR. Has been off toradol since 01/29. Stopped Mobic 2 weeks ago. Follows with pain mgmt. documented in this encounter [facility] 01-31-2022 History and physical note UPDATED HISTORY AND PHYSICAL EXAMINATION SERVICE DATE: 01/31/2022 SERVICE TIME: 10:53 AM PHYSICAL EXAM MUST BE COMPLETED ON ADMISSION The History and Physical (completed in the past 30 days) has been reviewed and the patient has been examined. The contents accurately reflect the patient's condition with the following additions or revisions since the H&P was completed. Examination indicates no changes. NS1 and S2; LCTAB This H&P can be found in the scanned documents. SIGNATURE: Pepe Rincon MD PATIENT NAME: Sho Villatoro Jr. DATE: January 31, 2022 TIME: 10:52 AM documented in this encounter [facility] 01-30-2022 Note HNO ID: [id number] Author: Amber Brewster APRN.CLINICAL DATA ASSOCIATE Service: Anesthesiology Author Type: Nurse Practitioner Type: Progress Notes Filed: 01/30/2022 12:44 PM Note Text: Summary: dos meds Day of Surgery Medication Instructions: No current facility-administered medications for this encounter. Current Outpatient Medications Medication Sig Dispense Refill tamsulosin (FLOMAX) 0.4 mg Take 0.4 mg by mouth every morning. cetirizine (ZYRTEC) 10 mg tablet Take 10 mg by mouth as needed. meloxicam (MOBIC) 15 mg tablet Take 15 mg by mouth every morning. Over 2 weeks ago - last dose methocarbamol (ROBAXIN) 750 mg tablet Take 750 mg by mouth four times daily. oxyCODONE IR (ROXICODONE) 5 mg immediate release tablet Take by mouth every 8 hours as needed for pain. gabapentin (NEURONTIN) 300 mg capsule Take 300 mg by mouth three times daily. 0 Omeprazole 40 mg capsule Take 1 capsule by mouth once daily. (Patient taking differently: Take 40 mg by mouth every morning.) 30 capsule 2 keTORolac (TORADOL) 10 mg tablet Take 10 mg by mouth every 8 hours as needed. Last dose 01/29 Take all routine morning medications. You should have already stopped toradol and mobic. You may take Oxy IR if you need to. [facility] 01-30-2022 Nurse Note PRE-PROCEDURE INSTRUCTIONS TO PREPARE FOR YOUR PROCEDURE: Your arrival time for your procedure is 0900 Please note pt says he will mostly likely be late. He says earliest he can get here is 10am. Surgery scheduling is aware and 1035 start time is the latest case Dr Rnicon has tomorrow. Do NOT eat any solid foods after MIDNIGHT the night prior to your procedure - this includes gum or mints. You can drink clear liquids* up until 0700 which is 2 hours before your arrival time. *Clear liquids = water, carbohydrate drink (sports drink that is clear or yellow in color), Ensure Pre-Surgery (given by TOMASZ or your DrWalter), fruit juice without pulp (apple/cranberry), clear tea, black coffee (no cream). NO ALCOHOL. Shower the morning of the procedure, put on clean clothes, and have clean sheets for your bed to help prevent infection after your procedure. Leave all valuables such as jewelry including rings, piercings, wallets, and purses at home. Wear comfortable, loose-fitting clothing. If you wear glasses or contacts, please bring a case. SPECIAL INSTRUCTIONS: If instructed, bring your first voided urine specimen with you. If you were provided skin preparation to use prior to your procedure, complete this as directed. If you use crutches or a walker, bring them with you. If you have a home CPAP/BIPAP machine, bring it with you. If you were instructed to complete a fleets enema or bowel prep, complete as directed. Bring copy of Living Will/Power of Tail Trimmer. Do not smoke or chew. If you use tobacco, quit or at least cut down before surgery. Do not smoke or chew after midnight the day before your surgery. This effects bleeding, infection, healing, and so much more. Do not take any Diet or Herbal Supplements 2 weeks prior to your surgery date. Please notify your physician if there is any change in your physical condition such as a cold, cough, fever, sore throat, or skin irritation near the surgical site. Visitors under the age of 14 are restricted in the Surgery Center. UPON ARRIVAL: Access to [facility] (the [facility]) is located on [address] Under Cutter parking is available for your convenience from 5am-5pm- there is a $5.00 charge for this service. Take the elevators directly inside the entrance to the 1st Floor Surgery Lobby. Sign in at the podium located to the left when you get off the elevators. A payment may be expected at the time of service. One visitor may come back to the preoperative area with you. The preoperative staff will be reviewing your medical history, please let them know if you prefer not to have a visitor with you during this time. Once you are ready for surgery, two visitors at a time are permitted in your preoperative room. CURRENT MEDICATIONS No current facility-administered medications for this encounter. Current Outpatient Medications Medication Sig Dispense Refill tamsulosin (FLOMAX) 0.4 mg Take 0.4 mg by mouth every morning. cetirizine (ZYRTEC) 10 mg tablet Take 10 mg by mouth as needed. meloxicam (MOBIC) 15 mg tablet Take 15 mg by mouth every morning. Over 2 weeks ago - last dose methocarbamol (ROBAXIN) 750 mg tablet Take 750 mg by mouth four times daily. oxyCODONE IR (ROXICODONE) 5 mg immediate release tablet Take by mouth every 8 hours as needed for pain. gabapentin (NEURONTIN) 300 mg capsule Take 300 mg by mouth three times daily. 0 Omeprazole 40 mg capsule Take 1 capsule by mouth once daily. (Patient taking differently: Take 40 mg by mouth every morning.) 30 capsule 2 keTORolac (TORADOL) 10 mg tablet Take 10 mg by mouth every 8 hours as needed. Last dose 01/29 Take all routine morning medications. You should have already stopped toradol and mobic. You may take Oxy IR if you need to. documented in this encounter [facility] 01-30-2022 History of Presen t illness Narrative Summary: dos meds Day of Surgery Medication Instructions: No current facility-administered medications for this encounter. Current Outpatient Medications Medication Sig Dispense Refill tamsulosin (FLOMAX) 0.4 mg Take 0.4 mg by mouth every morning. cetirizine (ZYRTEC) 10 mg tablet Take 10 mg by mouth as needed. meloxicam (MOBIC) 15 mg tablet Take 15 mg by mouth every morning. Over 2 weeks ago - last dose methocarbamol (ROBAXIN) 750 mg tablet Take 750 mg by mouth four times daily. oxyCODONE IR (ROXICODONE) 5 mg immediate release tablet Take by mouth every 8 hours as needed for pain. gabapentin (NEURONTIN) 300 mg capsule Take 300 mg by mouth three times daily. 0 Omeprazole 40 mg capsule Take 1 capsule by mouth once daily. (Patient taking differently: Take 40 mg by mouth every morning.) 30 capsule 2 keTORolac (TORADOL) 10 mg tablet Take 10 mg by mouth every 8 hours as needed. Last dose 01/29 Take all routine morning medications. You should have already stopped toradol and mobic. You may take Oxy IR if you need to. documented in this encounter [facility] 06-14-2021 Miscellaneous Notes 08/21/2021 EGD & Colonoscopy Dr. Tejada @ [facility] moderate sedation and golytely prep documented in this encounter [facility] Diagnosis Bilateral ureteral calculi Obesity, Class I, BMI 30-34.9 Obesity, unspecified [facility] Diagnosis Spinal stenosis of lumbar region with neurogenic claudication- Primary Spinal stenosis, lumbar region, with neurogenic claudication Trochanteric bursitis of both hips Enthesopathy of hip region [facility] Diagnosis Kidney stone- Primary Calculus of kidney [facility] Diagnosis Lumbar radiculopathy Thoracic or lumbosacral neuritis or radiculitis, unspecified [facility] Diagnosis Lumbar radiculopathy- Primary Thoracic or lumbosacral neuritis or radiculitis, unspecified [facility] Diagnosis Spinal stenosis of lumbar region with neurogenic claudication- Primary Spinal stenosis, lumbar region, with neurogenic claudication S/P lumbar fusion Arthrodesis status [facility] Outpatient Procedure (Routine) - Closed Specialty Diagnoses / Procedures Referred By Silva nuno Referred To Contact [facility] Diagnoses Generalized abdominal pain Procedures COLONOSCOPY SCREENING COLONOSCOP W/ OR W/O [facility] SPEC Thomas Tejada MD [address] [place] [address] [facility] [address] [place] [address] Referral ID Status Reason Start Date Expiration Date V isits Requested Visits Authorized [id number] Closed Auto-Generate d Referral 06/14/2021 06/14/2022 1 1 * Outpatient Procedure (Routine) - Closed Specialty Diagnoses / Procedures Referred By Contac t Referred To Contact [facility] Diagnoses Generalized abdominal pain Procedures EGD DIAGNOSTIC EGD W/O OR W/BRUSH/WASH Thomas Tejada MD [address] [place] [place] [address] [facility] [address] [address] Referral ID Status Reason Start Date Expiration Date V isits Requested Visits Authorized [id number] Closed Auto-Generate d Referral 06/14/2021 06/14/2022 1 1 [facility] for referral (narrative)* Diagnostic Procedure Only (Routine) - Closed Specialty Diagnoses / Procedures Referred By Contac t Referred To Contact XR IMAGING Diagnoses Lumbar radiculopathy Procedures XR LUMBAR LIMITED 2V AP/LAT RADEX SPINE LUMBOSACRAL 2/3 VIEWS Tracy Hobbs, HOT TAMALE MAN.CLINICAL DATA ASSOCIATE [address] [place] [address] Xr Imaging Referral ID Status Reason Start Date Expiration Date V isits Requested Visits Authorized [id number] Closed Auto-Generate d Referral 12/02/2022 01/01/2024 1 1 [facility] for referral (narrative)* Diagnostic Procedure Only (Routine) - Closed Specialty Diagnoses / Procedures Referred By Contac t Referred To Contact XR IMAGING Diagnoses Lumbar radiculopathy Procedures XR LUMBAR LIMITED 2V AP/LAT RADEX SPINE LUMBOSACRAL 2/3 VIEWS Tracy Hobbs, HOT TAMALE MAN.CLINICAL DATA ASSOCIATE [address] [place] [address] Xr Imaging Referral ID Status Reason Start Date Expiration Date V isits Requested Visits Authorized [id number] Closed Auto-Generate d Referral 12/02/2022 01/01/2024 1 1 [facility] Summary Purpose Family History No Family History Records FoundNo Family History Records FoundNo Family History Records FoundNo Family History Records FoundNo Family History Records Found Advance Directives No Advanced Directives Records FoundDocuments on File Type Date 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 Advance Directive(s) 07/03/2021 9:56 AM Advance Directive(s) 03/28/2020 12:18 PM Advance Directive(s) 03/08/2020 1:48 PM Advance Directive(s) 08/17/2018 9:43 AM Advance Directive(s) 08/14/2018 8:13 AM Advance Directive(s) 09/17/2016 11:06 AM Medications Administered Section Inactive Administered Medications - up to 3 most recent administrations Medication Order MAR Action Action Date Dose Rate Site lactated ringers iv infusion 5-30 mL/hr, INTRAVENOUS, CONTINUOUS, Starting on Fri01/31/22 at 0930, Until Fri02/01/22 at 0303, Preprocedure New Bag/Syringe/Thuy le 01/31/2022 9:30 AM EDT 30 mL/hr 30 mL/hr lidocaine 10 mg/mL (1 %) 1-2 mg injection (XYLOCAINE) 1-2 mg (0.1-0.2 mL), INTRADERMAL, NEEDED, 1 dose, Starting on Fri01/31/22 at 0916, Until Fri01/31/22 at 0930, May use prior to starting IV, Preprocedure Given 01/31/2022 9:30 AM EDT 1 mg Forearm, Right Reason for Referral Specialty Diagnoses / Procedures Referred By Silva nuno Referred To Contact [facility] Diagnoses Spinal stenosis of lumbar region with neurogenic claudication Trochanteric bursitis of both hips Procedures CONSULT TO PHYSICAL THERAPY PHYSICAL THERAPY EVALUATION HIGH COMPLEX 45 MINS Ezequiel Capps MD [address] [place] [address] [facility] [address] [place] [address] Referral ID Status Reason Start Date Expiration Date Visits Requested Visits Authorized [id number] Pending Review Auto-Generat ed Referral 2 03/28/2023 1 1 Specialty Diagnoses / Procedures Referred By Contac t Referred To Contact MR IMAGING Diagnoses Spinal stenosis of lumbar region with neurogenic claudication Procedures MRI LUMBAR SPINE WO IVCON MRI SPINAL CANAL LUMBAR W/O CONTRAST MATERIAL Ezequiel Capps MD [address] [id number] Mr Imaging Referral ID Status Reason Start Date Expiration Date Visits Requested Visits Authorized [id number] Additional Clinical Info Needed Auto-Generat ed Referral 2 04/27/2023 1 1 Specialty Diagnoses / Procedures Referred By Contac t Referred To Contact CT IMAGING Diagnoses Spinal stenosis of lumbar region with neurogenic claudication S/P lumbar fusion Procedures CT LUMBAR SPINE WO IVCON CT LUMBAR SPINE W/O CONTRAST MATERIAL Tracy Hobbs, JAMES.CLINICAL DATA ASSOCIATE [id number] Imaging Referral ID Status Reason Start Date Expiration Date Visits Requested Visits Authorized [id number] Pending Review Auto-Generat ed Referral 12/04/2022 01/03/2024 1 1 Additional Source Comments (unrecognized sect ion and content) No Status Records FoundNo Status Records FoundNo Status Records FoundNo Status Records FoundNo Status Records Found INFORMATION SOURCE (unrecogn ized section and content) DATE CREATED AUTHOR AUTHOR'S ORGANIZ ATION 2021 [facility] [place] DATE CREATED AUTHOR AUTHOR'S ORGANIZ ATION 06/25/2022 [facility] DATE CREATED AUTHOR AUTHOR'S ORGANIZ ATION 12/06/2022 [facility] DATE CREATED AUTHOR AUTHOR'S ORGANIZ ATION 07/04/2023 [facility] Source Comments (unrecognize d section and content) In the event this informatio n is protected by the Federal Confidentiality of Alcohol and Drug Abuse Patient Records regulations: The Federal rules restrict any use of the information to criminally investigate or prosecute any alcohol or drug abuse patient.[facility] the event this information is protected by the Federal Confidentiality of Alcohol and Drug Abuse Patient Records regulations: The Federal rules restrict any use of the information to criminally investigate or prosecute any alcohol or drug abuse patient.[facility] the event this information is protected by the Federal Confidentiality of Alcohol and Drug Abuse Patient Records regulations: The Federal rules restrict any use of the information to criminally investigate or prosecute any alcohol or drug abuse patient.[facility] the event this information is protected by the Federal Confidentiality of Alcohol and Drug Abuse Patient Records regulations: The Federal rules restrict any use of the information to criminally investigate or prosecute any alcohol or drug abuse patient.[facility] the event this information is protected by the Federal Confidentiality of Alcohol and Drug Abuse Patient Records regulations: The Federal rules restrict any use of the information to criminally investigate or prosecute any alcohol or drug abuse patient.[facility] the event this information is protected by the Federal Confidentiality of Alcohol and Drug Abuse Patient Records regulations: The Federal rules restrict any use of the information to criminally investigate or prosecute any alcohol or drug abuse patient.[facility] the event this information is protected by the Federal Confidentiality of Alcohol and Drug Abuse Patient Records regulations: The Federal rules restrict any use of the information to criminally investigate or prosecute any alcohol or drug abuse patient.[facility] the event this information is protected by the Federal Confidentiality of Alcohol and Drug Abuse Patient Records regulations: The Federal rules restrict any use of the information to criminally investigate or prosecute any alcohol or drug abuse patient.[facility] the event this information is protected by the Federal Confidentiality of Alcohol and Drug Abuse Patient Records regulations: The Federal rules restrict any use of the information to criminally investigate or prosecute any alcohol or drug abuse patient.[facility] Reason for Visit (unrecogniz ed section and content) Specialty Diagnoses / Procedures Referred By Silva nuno Referred To Contact Diagnoses Bilateral ureteral calculi Bilateral ureteral calculi [N20.1] Procedures CYSTO/URETERO W/LITHOTRIPSY &INDWELL STENT INSRT CYSTOURETHROSCOPY W/ URETEROSCOPY AND/OR PYELOSCOPY W/ LITHOTRIPSY INCLUDE INSERTION OF INDWELLING URETERAL STENT Mr Surgery [address] [facility] [place] [address] Referral ID Status Reason Start Date Expiration Date Visits Re quested Visits Authorized [id number] 1 1 Reason Comments Low Back Pain Follow Up Reason Comments Follow Up 3 month Reason Comments Patient Question Reason Comments Radio Main J1 Specialty Diagnoses / Procedures Referred By Silva nuno Referred To Contact XR IMAGING Diagnoses Lumbar radiculopathy Procedures XR LUMBAR LIMITED 2V AP/LAT RADEX SPINE LUMBOSACRAL 2/3 VIEWS Tracy Hobbs, HOT TAMALE MAN.CLINICAL DATA ASSOCIATE [address] [place] [address] Xr Imaging Referral ID Status Reason Start Date Expiration Date V isits Requested Visits Authorized [id number] Closed Auto-Generate d Referral 12/02/2022 01/01/2024 1 1 Reason Comments Established Patient Reason Comments Results Care Teams (unrecognized sec tion and content) Behavioral Medical Director Relationship Specialty Start Date End Date Erica Junior, HOT TAMALE MAN.CLINICAL DATA ASSOCIATE [address] [place] [address] PCP - General Internal Medicine 06/02/21 Maya, Sommer R [address] [place] [address] Referring Orthopedics 08/18/19 Behavioral Medical Director Relationship Specialty Start Date End Date Erica Junior, HOT TAMALE MAN.CLINICAL DATA ASSOCIATE [address] [place] [phone] PCP - General Internal Medicine 06/02/21 Sommer Trejo [address] [place] [address] Referring Orthopedics 08/18/19 Behavioral Medical Director Relationship Specialty Start Date End Date Erica Junior, HOT TAMALE MAN.CLINICAL DATA ASSOCIATE [address] [place] [phone] PCP - General Internal Medicine 06/02/21 Sommer Trejo [address] [place] [address] Referring Orthopedics 08/18/19 Behavioral Medical Director Relationship Specialty Start Date End Date Erica Junior, HOT TAMALE MAN.CLINICAL DATA ASSOCIATE [address] [place] [phone] PCP - General Internal Medicine 06/02/21 Sommer Trejo R [address] [place] [address] Referring Orthopedics 08/18/19 Behavioral Medical Director Relationship Specialty Start Date End Date Erica Junior, HOT TAMALE MAN.CLINICAL DATA ASSOCIATE [address] [place] [address] PCP - General Internal Medicine 06/02/21 Sommer Trejo R [address] [place] [address] Referring Orthopedics 08/18/19 Behavioral Medical Director Relationship Specialty Start Date End Date Erica Junior, HOT TAMALE MAN.CLINICAL DATA ASSOCIATE [address] [place] [phone] PCP - General Internal Medicine 06/02/21 MayaSommer [facility] [employer] [facility] [address] [place] [address] Referring Orthopedics 08/18/19 Behavioral Medical Director Relationship Specialty Start Date End Date Erica Junior, HOT TAMALE MAN.CLINICAL DATA ASSOCIATE [address] [place] [phone] PCP - General Internal Medicine 06/02/21 Sommer Trejo [address] [email or web address] [place] [address] Referring Orthopedics 08/18/19 Scheduled Active and Recently Administ ered Medications (unrecognized section and content) Continuous Medication Order 01/29/2022 01/30/2022 01/31/2022 lactated ringers iv infusion 5-30 mL/hr, INTRAVENOUS, CONTINUOUS, Starting on Concepcion 01/31/22 at 0930, Until Fri02/01/22 at 0303, Preprocedure 0930 (New Bag/Syring e/Bottle - Provider: Kelsey Hyman RN) PRN Medication Order 01/29/2022 01/30/2022 01/31/2022 lidocaine 10 mg/mL (1 %) 1-2 mg injection (XYLOCAINE) (COMPLETED) 1-2 mg (0.1-0.2 mL), INTRADERMAL, NEEDED, 1 dose, Starting on Concepcion 01/31/22 at 0916, Until Concepcion 01/31/22 at 0930, May use prior to starting IV, Preprocedure 0930 (Given - Provid er: Kelsey Hyman RN) MEDICATION, NON-DATABASE (CANCELED) X (OR/PROCEDURE) PRN, Starting on Concepcion 01/31/22 at 1134, Until Concepcion 01/31/22 at 1203, Intraprocedure 1134 (Given - Provid er: Pepe Rincon MD - Comment: [email or web address]) water for irrigation irrigation (CANCELED) X (OR/PROCEDURE) PRN, Starting on Concepcion 01/31/22 at 1019, Until Concepcion 01/31/22 at 1203, Intraprocedure 1120 (Given - Provid er: Pepe Rincon MD)1135 (Given - Provider: Pepe Rincon MD) FOR RECORDS PERTAINING TO PATIENTS WHO ARE OR HAVE BEEN ENROLLED IN A CHEMICAL DEPENDENCY/SUBSTANCEABUSE PROGRAM, SOME INFORMATION MAY BE OMITTED. This clinical summary was aggregated from multiple sources. Caution should be exercised in using it in the provision of clinical care. This summary normalizes information from multiple sources, and as a consequence, information in this document may materially change the coding, format and clinical context of patient data. In addition, data may be omitted in some cases. CLINICAL DECISIONS SHOULD BE BASED ON THE PRIMARY CLINICAL RECORDS. [email or web address]. provides no warranty or guarantee of the accuracy or completeness of information in this document.
== END | disposition home or self-care (01) ==
LOC: MRI 09:24
PROVIDERS: PCP Nurse Practitioner Family; Referring Provider Orthopaedic Surgery Orthopaedic Surgery of the Spine; Visit Provider Orthopaedic Surgery Orthopaedic Surgery of the Spine
DX: M54.16 Radiculopathy, lumbar region (principal); Z98.1 Arthrodesis status
CPT/HCPCS: 72158; A9575

== ENCOUNTER → 2023-08-28 | Outpatient (CLI) | payer MEDICAID, SELFPAY ==
--- NOTE | 2023-08-28 13:15 | CT_ITS ---
STUDY: CT LUMBAR SPINE WITHOUT CONTRAST REASON FOR EXAM: Male, 58 years old. Pain -- Rule out pseudo-arthrosis. Prior lumbar fusion. RADIATION DOSAGE (If Supplied By Facility): CTDIvol = ( 25.90 ) mGy, DLP = ( 713.76 ) mGycm TECHNIQUE: The patient was scanned in a multi detector CT scanner. High resolution transaxial imaging was performed. Images were obtained from L1 to S1 vertebral level. Sagittal and coronal images were reconstructed. Individualized dose optimization techniques were used for this CT. COMPARISON: Comparison is made with prior radiographs dated December 04, 2023 and prior MR of the lumbar spine dated August 07, 2023 FINDINGS: Normal lumbar lordosis. There is no substantial scoliosis. Normal vertebrae of the lumbar spine. L1-2: Normal endplates. Normal disc height and morphology. Normal bilateral facet joints. Normal central canal and bilateral lateral recesses. Normal bilateral intervertebral neural foramina. L2-3: Facet joint osteoarthritis and hypertrophy. Mild degree of bilateral neural foraminal stenosis. L3-4: The patient is status post interpedicular screw fixation at the L3-L4 level. Prosthetic disc is seen. There is evidence of disc space narrowing. Mild central canal stenosis due to posterior spondylosis. There is evidence of a grade 1 anterolisthesis of L3 on L4. L4-5: Mild degree of disc space narrowing and disc degeneration. Diffuse posterior disc bulge worse on the left side of the midline. Narrowing of both intervertebral foramina. L5-S1: Marked degree of disc space narrowing and subchondral sclerosis. Disc degeneration. Diffuse posterior disc bulge slightly worse on the left side. Grade 1 retrolisthesis of L5 on S1. Normal visualized paraspinous soft tissue structures. CT/Spine Lumbar without Contrast IMPRESSION: Multiple findings as discussed above. Electronically Signed: Gregg Waldron MD at 14:41 EDT ,
== END | disposition home or self-care (01) ==
LOC: CT 13:14
PROVIDERS: PCP Nurse Practitioner Family; Referring Provider Orthopaedic Surgery Orthopaedic Surgery of the Spine; Visit Provider Orthopaedic Surgery Orthopaedic Surgery of the Spine
DX: R52 Pain, unspecified (principal); Z98.1 Arthrodesis status
CPT/HCPCS: 72131

== ENCOUNTER 2023-11-11 13:42 | Observation (INO) | payer MEDICAID, SELFPAY ==
[2023-10-30 15:18] LABS: Absolute Neutrophil Count 3.9 X10^3/uL (2.0-7.7); Basophil# 0.04 X10^3/uL; Basophil% 0.7 % (0-1); Eosinophil# 0.06 X10^3/uL; Lymphocyte % 22.4 % (19-41); Mean Corp Hgb Conc 31.5 g/dL (32-36); Mean Corpuscular Hgb 29.3 pg (27.0-32.0); Mean Corpuscular Volume 93.1 fL (80-94); Mean Platelet Vol. 11.4 fl (6.2-12.0); Monocyte# 0.49 X10^3/uL; Monocyte% 8.4 % (0-10); NRBC Flagged by Analyzer 0 % (0-5); Neutrophil # 3.88 X10^3/uL (2.7-7.7); Platelet Count 156 K/mm3 (150-450); RBC Distribution Width CV 14.1 % (11.6-14.6); RBC Distribution Width SD 48.8 fl (35.1-43.9); White Blood Count 5.8 K/mm3 (4.4-11.0)
[2023-10-30 16:20] LABS: Anion Gap 5 (5-15); BUN 18 mg/dL (7-18); BUN/Creat Ratio 16.8 RATIO (10-20); Calcium,Total 8.8 mg/dL (8.5-10.1); Chloride 109 mmol/L (98-107); Creatinine, Serum 1.07 mg/dL (0.70-1.30); EST Glomerular Filtration Rate 76 mL/min (>60); Est Glom Filt Rate - Afr Amer 92 mL/min (>60); Glucose 93 mg/dL (74-106); Potassium 4.1 mmol/L (3.5-5.1); Sodium Level 141 mmol/L (136-145)
[2023-10-30 17:03] LABS: HIV - WCH Non-Reactive (Nonreactive); Hepatitis B Surface Antibody Non-Reactive; Hepatitis C Antibody Non-Reactive (Nonreactive)
[2023-11-01 08:12] LABS: Hepatitis A AB, Total Negative (Negative)
[2023-11-11] VITALS (14 sets, daily range): BP systolic 117–136; BP diastolic 76–94; PULSE 58–94; RESP 14–18; TEMP 36.3–36.9; O2SAT 16–100; BMI 30.7
[2023-11-11] MEDS: Lactated Ringers 1,000 ML 15 ML IV (09:25)
[2023-11-11] MEDS: Magnesium 1 GM over 15 mins IV (09:35)
[2023-11-11] MEDS: Acetaminophen 500 MG Tablet 1000 MG PO ×3 (09:46→21:31)
--- NOTE | 2023-11-11 11:01 | SUR.PREOP ---
PATIENT CALLED OUT FOR NOT FEELING WELL. HE FELT HIS BG WAS LOW. BLOOD GLUCOSE CHECKED AND IT WAS 46. MARTHA DAWSON ASKED DR. JORGENSEN AND A VERBAL ORDER FOR D5LR AT 999CC'S HR GIVEN. PATIENT IS RED AND FEELS VERY HOT. HE IS NOT A DIABETIC. D5LR 1000 CC'S BAG RECEIVED FROM PHARMACY STARTED. VITALS 97.5 , 117/84, 79, 20, 95% ON RA.
--- NOTE | 2023-11-11 11:05 | HP.PCM_ITS ---
History and Physical Date of Admission: 11/11/23 MR#: [id number] Acct: [id number] Name: SHO VILLATORO Jr. Rep #: [id number] : 1965 Provider: Dr. Yoni Dillard MD Age/Sex: 58/M Location: [facility] – [place].[facility]AR[facility] Status: Signed Intake Vital Signs 08/10/2409:47 Height 5 ft 9 in Intake Visit Reasons: lumbar spine Chief Complaint: Pre-Op Lumbar Laminectomy Cryptologic Supervisor Required: No Accompanied by: Is patient in pain?: Yes (Generalized) Pain scale (1-10): 5 Allergies cyclobenzaprine (From Flexeril) Allergy (Mild, Verified 11/05/23 09:33) flushedadhesive tape Adverse Reaction (Verified 11/05/23 09:33) BLISTERS SKINhydrocodone (From Vicodin) Adverse Reaction (Verified 11/05/23 09:33) Nausea Medications ?Medication ?Instructions ?Recorded ?Confirmed ?Type diclofenac sodium 1 % topical gel 2 g topical DAILY PRN Pain Or Fever 03/31/18 11/05/23 History omeprazole 40 mg capsule,delayed 40 mg PO DAILY 05/27/18 11/05/23 History release oxycodone 5 mg tablet 5 mg PO BID PRN Breakthrough Pain 05/16/21 11/05/23 History meloxicam 15 mg tablet 15 mg PO DAILY PRN 03/25/22 11/05/23 History nabumetone 750 mg tablet 750 mg PO PRN 03/25/22 11/05/23 History magnesium 250 mg tablet 250 mg PO DAILY 10/30/23 11/05/23 History vitamin C 45 mg-zinc citrate 3.75 1 tab PO DAILY 10/30/23 11/05/23 History mg-elderberry 50 mg chewable tablet ([employer]) acetaminophen 325 mg tablet 325 mg PO Q6H PRN 11/05/23 11/05/23 History (Tylenol) PFSH Medical History Back pain Bilateral primary osteoarthritis of knee Arthritis Ureterolithiasis Heartburn Surgical History H/O shoulder surgery History of lumbar spinal fusion h/o gallbladder removed Heart Catheterization finger tendon Family History Father Heart disease Social History Smoking Status: Former smoker quit date: 06/02/09 alcohol intake: current alcohol intake frequency: holidays/special occasions only HPI lumbar spine Details: This documentation accurately reflects the service provided and the decisions made by me, Dr. Yoni Dillard MD 11/05/23 0962. Part of today?s visit was documented by [ ], acting as scribe. SHO VILLATORO is a 58 year old M here today for pre-op appointment for upcoming lumbar laminectomy surgery. Denies changes from previous. Continued low back pain. Reports numbness and tingling continues. Continues to have radiculopathy from back to LLE to toes. Sho continues to have low back pain and left lower extremity radiculopathy. He also has some right-sided buttock pain. He is scheduled for surgery next week. Following his his previous history: 10/14/23: SHO VILLATORO is a 58 year old M here today for f/u on lumbar spine after surgery and appeal was denied. He states that he would like to discuss other options. He states that his pain has gotten worse since his last visit. He states that the pain on his left side is getting worse and now is getting pain on the right side. Sho continues to have axial low back pain with left lower extremity radiation. He has significant difficulty even with weightbearing on the left side. He has had 2 sets of epidural injections. He mentioned that his his quality of life is worsening because of his severe symptoms. He was denied by his insurance for surgery last month. Following his his previous history. 09/04/23: SHO VILLATORO is a 58 year old M here today for CT review. He states that he also had a steroid injection with Dr. Brunner yesterday 09/03/23 which he does feel a little relief. Sho continues to have lower back pain which radiates down to the left lower extremity and symptoms goes in the right buttock as well. He has difficulty walking distances and finds himself leaning forward or sitting down after a while. He has had [address] Romero yesterday which has given him slight relief. He continues to be on oral opioids. Following his his previous history. 08/12/23: SHO VILLATORO is a 58 year old M here today for MRI review of the lumbar spine. Patient states that his low back pain has gotten worse and it is becoming harder for him to sleep. Sho continues to have low back pain with left lower extremity radiation that goes along the posterior thigh posterior lateral leg down to the dorsum of the foot. He was seen by me about 2 months ago and I recommended physical therapy and obtaining an MRI. He went through at least 4 to 6 weeks of physical therapy which only made his symptoms worse. He denies any balance or dexterity issues. He does have a shoulder pain and has had injections in the right shoulder. He has some pain that starts in the neck and goes to the shoulder but is not severely bothered by it. Following his his previous history. 06/05/23: SHO VILLATORO is a 58 year old M here today for lower back pain. Pt did have a lumbar fusion in 2019 which was done by Dr. Ezequiel Carbajal. He did have an injection about a month ago with Dr Brunner and since then he has had increased pain. He states that he got very little relief. His pain is on his left side and radiates down his left leg. He does have numbness and tingling down the left leg as well. He states that standing for prolonged amounts of time increases his pain. Denies using ice/heat. He does use a tens unit which helps calm down the pain. He states that he has takes oxycodone that he is given by Dr Brunner for the pain and it doesn't seem to help. He has recently done PT but states that it didn't help with his pain. Sho had L3-4 fusion about 3 years ago on his birthday. Prior to the surgery he had low back pain going into the left lateral hip which improved significantly. He was pain-free for about 2 years after which she started having recurrent pain starting in the left lower back going to the left buttock region into the posterior thigh. He denies any numbness below the knee. He is able to walk only about quarter mile distance after which she has to find a place to sit down. Previously he was able to walk at least half mile without any issues. He denies any right-sided symptoms today. He has had 2 sets of epidural injections by Dr. Romero. The first 1 was about a year ago which helped for 8 to 10 months. The second was 1 but 1 month ago which did not seem to help and actually aggravated his pain. He is evaluating options of radiofrequency ablations. He saw his previous surgeon who was suspecting possible nonunion at the fusion. Ortho Exam General General: Yes no acute distress Neurologic: Yes alert and Yes oriented x3 Spine SPINE TESTING CERVICAL THORACIC LUMBAR Musculoskeletal Strength 0=absent - 5=normal Details: Examination of the lower back shows midline incision in the mid lumbar spine. There is left paraspinal and midline tenderness in the lower lumbar spine. Neurologic evaluation of lower extremity shows 5 x 5 power in all muscles normal sensations in all dermatomes. Passive straight leg raise test is positive on the left. Carlita's is negative. There is no hyperreflexia lower extremities. Coding Level of Care Code Off vis,est,level 4 Diagnoses Other intervertebral disc degeneration, lumbar region M51.36 S/P lumbar fusion Z98.1 Lumbar radiculopathy M54.16 Lumbar radiculopathy, chronic M54.16 Assessment and Plan Assessment and Plan (1) Other intervertebral disc degeneration, lumbar region: Status: Acute (2) S/P lumbar fusion: Status: Acute (3) Lumbar radiculopathy: Status: Acute (4) Lumbar radiculopathy, chronic: Status: Chronic Plan I again reviewed all of his lumbar spine imaging. These show L3-4 spondylolisthesis with TLIF instrumentation. There is no obvious hardware loosening is seen on the CT. Fusion seems to be in situ for spondylolisthesis grade 1 alignment. No obvious new compressive element at L3-4. MRI shows L5- S1 left foraminal stenosis with exiting nerve root compression. Moderate disc degeneration with mild lateral recess and bilateral foraminal stenosis L4-5 also noticed. Screening images of cervical and thoracic spine show multiple areas of possible OPLL as well as OLF noticed but detailed dedicated cervical and thoracic MRIs not available. I again explained to him the imaging findings in detail. Patient does not seem to have any hyperreflexia or significant balance issues, and I would, at this time, not explore imaging of cervical and thoracic region. For his lumbar spine, his severe radiculopathy seems to correlate well with the left L5-S1 severe foraminal stenosis, as well as left L4-5 small disc extrusion causing lateral recess impingement. No pseudoarthrosis noticed at L3-4 at this time. Patient has had exhaustive nonsurgical treatment including physical therapy and epidural injections as well as radiofrequency ablations without significant help. At this time he is wishing to move forward with surgical treatment. I had initially recommended extension of fusion inferiorly to include L4-5 L5-S1 which has been denied by the insurance. Explained to him that although he has worsening axial low back pain along with radiculopathy, it may be reasonable to consider a decompression alone procedure. I recommend L4-5 and L5-S1 left laminotomy and possible discectomy and foraminotomy. Explained to the patient that decompression adjacent to the previous fusion has a high risk of developing accelerated degeneration with need for fusion in the future. Patient understands the risk, but would like to proceed with surgery as his symptoms are severely worsening his quality of life. Explained to him that there is infection, bleeding, injury to nerves and vessels, hematoma formation, need for further surgery, need for fusion in the future, iatrogenic instability, incomplete decompression, persistent radiculopathy, persistent axial pain, DVT, pulm embolism, pneumonia, atelectasis, cardiopulmonary event. Patient understands and agrees to proceed with surgery. Consent was signed.
[2023-11-11] MEDS: Dextrose 5%-Lactated Ringers 1,000 ML 999 ML IV (11:08)
[2023-11-11] MEDS: Cefazolin 2 GM in 0.9% Normal Saline (100mL Bag) 100 ML IV ×2 (11:33→20:14)
--- NOTE | 2023-11-11 11:50 | RAD_ITS ---
PROCEDURE: L5-S1 lumbar laminectomy. DATE OF EXAMINATION: November 11, 2023. INDICATION: Male, 58 years old. Low back pain. FLUOROSCOPY TIME (if supplied): (1 second) minutes/seconds. 1.13 mGy. One image was submitted. RAD/Lumbar Spine 2 or 3 Views IMPRESSION: Intraoperative fluoroscopic services provided for localization of the L5-S1 disc space level. Electronically Signed: Gregg Waldron MD at 14:51 EDT ,
[2023-11-11 12:26] LABS: Bedside Glucose 218 mg/dL (74-106)
[2023-11-11] MEDS: Dexamethasone IV Preserv Free 10 MG/ML VIAL OPERA.SITE (13:09)
--- NOTE | 2023-11-11 13:46 | PCM.OPRPT ---
Report of Operation Date of Procedure: 11/11/23 Description of Surgical Findings:: Preoperative diagnosis: L5-S1 left foraminal stenosis, L4-5 left lateral recess stenosis Postoperative diagnosis: Same Name of procedure: L4-5, L5-S1 left sided laminotomy, facetectomy, foraminotomies L5-S1 left laminotomy, facetectomy, foraminotomy CPT 19222 L4-5 left laminotomy facetectomy CPT 75284 Attending Surgeon: Dr. Yoni Dillard Curator Of Photography And Prints surgeon: Dr. Theodore Barrett Estimated blood loss: 50 mL Anesthesia: General Indications: Patient is a 58-year-old gentleman who presented with low back pain and severe left lower extremity radiation. MRI revealed L5-S1 Severe left foraminal stenosis, L4-5 left lateral recess stenosis. Patient has had prior L3-4 fusion for spondylolisthesis. All options of treatment were discussed which included continued nonoperative treatment measures like rest physical therapy, injections. After prolonged nonsurgical treatment, patient requested surgical intervention for decompression. All risks and benefits associated with the procedure were explained to the patient. The risks include but are not limited to infection, bleeding, injury to nerves and vessels, persistent paresthesia, incidental dural tear, recurrent disc herniation, spinal instability and need for fusion or other procedures in future, persistent pain, persistent weakness and numbness, etc. Procedure: The patient was identified in the preoperative holding suite using Unique patient identifiers. Skin was marked, consent was reviewed, and all questions were answered. The patient was then brought back to the operative room. A surgical timeout was performed to make sure correct procedure was being done on the correct patient and all operative room staff were on the same page. General endotracheal anesthesia was then given to the patient. The patient was then turned prone onto a Gordy table over a Christo frame. The back was prepped and draped in usual fashion. Preoperative antibiotic was given. A final timeout was then again done just before starting the procedure. An incision was then carried out approximately 2 inch length in the midline just below the previous incisional scar of L3-4 surgery. Bovie was utilized to dissect through the subcutaneous tissue up to the fascia. The fascia was bovied at the spinous process. Subperiosteal dissection was carried out along the left side of the spinous process and the lamina. This dissection was stopped at the level of the medial capsule of the facet joint. Lateral edge of the pars was also identified. A Lodgepole was then placed under the inferior edge of the lamina and a C-arm lateral view was repeated. The level was confirmed to be the L5-S1 interspace. A Melissa retractor of appropriate depth was then placed to provide retraction throughout the remainder of the surgery. A bambi was then utilized to make a laminotomy window medial to the facet and lateral to the spinous process. Care was taken to preserve at least 1 cm of bone from the lateral border of the pars. Once the bone was thinned out a Kerrison rongeur was utilized to complete the laminotomy. The ligamentum flavum was then removed with the help of pituitaries and Kerrison rongeurs. Ligamentum flavum in the lateral recess was then removed with Kerrison rongeur. The dura and traversing nerve root were then identified with the help of a [place] #4. A nerve root retractor was then utilized to retract the dura and the traversing nerve root medially. Medial facetectomy was performed with removal of medial aspect of the S1 supraventricular process to decompress the left L5 foramen. Lodgepole was passed to make sure adequate decompression was achieved. Mild disc bulge was noticed and discectomy was not performed at L5-S1. Attention was then taken to the L4-5 segment. Similar laminotomy on the left side was performed. Ligamentum flavum was removed. Traversing nerve root was retracted medially and nerve hook was utilized to explore any extruded disc fragments. Adequate decompression was achieved in the left L4 foramen as well as the lateral recess. Hemostasis was achieved with Floseal, patties, bipolar cautery. Thorough irrigation was performed with normal saline as well as Irrisept was kept in the wound for 1 minute. 10 mg of preservative-free dexamethasone was then sprinkled over the traversing nerve root at both levels. A small piece of Gelfoam was then placed over the bony windows. The Melissa retractor was then removed. And closure was done in layers, 0 Vicryl and #2 strata fix for the deep fascia, 2-0 Vicryl for subcutaneous tissue, and 4-0 Monocryl for the skin. The deep fascial layer was closed in a watertight fashion with interrupted 0 Vicryl. The skin closure was augmented with Dermabond. 2 x 2 gauze was then placed over the wound covered with Tegaderm. The patient was then turned supine onto a hospital bed. The patient was extubated and taken to PACU in stable condition. The patient tolerated the procedure well and no complications occurred. Estimated blood loss for the entire surgery was 50 mL. No instrumentation was utilized in this case. No dural tear occurred in this case. I was present for the entirety of the case and performed the surgery myself. Surgeon: Yoni Dillard core sticker: Theodore Barrett Admit VTE Documentation VTE Mechan Device Prophylaxis: SCD's Procedures Musculoskeletal [id number]: Other Procedure See Report
[2023-11-11 13:49] LABS: Bedside Glucose 156 mg/dL (74-106)
[2023-11-11 14:34] LABS: Bedside Glucose 152 mg/dL (74-106)
[2023-11-11 15:40] LABS: Bedside Glucose 46 mg/dL (74-106)
[2023-11-11] MEDS: Methocarbamol 500 MG Tablet 1000 MG PO (16:17)
[2023-11-11] MEDS: Ketorolac 15 MG/ML Vial IV ×2 (16:18→21:31)
[2023-11-11] MEDS: Ensure Surgery 237 ML LIQUID PO (17:13)
--- NOTE | 2023-11-11 19:59 | CON.PCM.HO_ITS ---
Assessment & Plan Assessment/Plan (1) Lumbar radiculopathy, chronic: PLAN: Plan 1. Lumbar spondylosis/DJD. Status post decompressive laminectomy. Pain control and management and DVT prophylaxis per primary team. 2. History of NSAID induced peptic ulcer disease. Patient on Protonix. Will continue. Hospital medicine will continue to follow. HPI Consult Data Date of Consult: 11/11/23 HPI Narrative Reason for Consultation: Postop medical management HPI Narrative: SHO VILLATORO, is a 58 M who today underwent decompressive laminectomy. Hospital medicine consulted for medical management. Patient denies any chest pain or shortness of breath at this time. Denies any nausea vomiting. States that pain is overall well-controlled. [facility], [facility] Medical History Back pain Bilateral primary osteoarthritis of knee Arthritis Ureterolithiasis Heartburn Home Medications ?Medication ?Instructions ?Recorded ?Last Taken ?Type diclofenac sodium 1 % topical gel 2 g topical DAILY PRN Pain Or Fever 03/31/18 Unknown History omeprazole 40 mg capsule,delayed 40 mg PO DAILY 05/27/18 11/11/23 07:30 History release oxycodone 5 mg tablet 5 mg PO BID PRN Breakthrough Pain 05/16/21 Unknown History meloxicam 15 mg tablet 15 mg PO DAILY PRN 03/25/22 11/09/23 History nabumetone 750 mg tablet 750 mg PO PRN 03/25/22 Unknown History magnesium 250 mg tablet 250 mg PO DAILY 10/30/23 11/11/23 07:30 History vitamin C 45 mg-zinc citrate 3.75 1 tab PO DAILY 10/30/23 Unknown History mg-elderberry 50 mg chewable tablet ([employer]) acetaminophen 325 mg tablet 325 mg PO Q6H PRN pain 11/05/23 Unknown History (Tylenol) Allergy/AdvReac Type Severity Reaction Status Date / Time cyclobenzaprine (From Allergy Mild flushed Verified 11/11/23 09:31 Flexeril) adhesive tape AdvReac BLISTERS Verified 11/11/23 09:31 SKIN hydrocodone (From Vicodin) AdvReac Nausea Verified 11/11/23 09:31 Family History Father Heart disease Surgical History H/O shoulder surgery History of lumbar spinal fusion h/o gallbladder removed Heart Catheterization finger tendon Social History Smoking Status: Former smoker quit date: 06/02/09 alcohol intake: current alcohol intake frequency: holidays/special occasions only ROS ROS Narrative Denies any chest pain or shortness of breath. All other systems reviewed and essentially negative or as above in the body of the history. Physical Exam Narrative General exam. Middle-aged man, not in any obvious distress HEENT. Oral mucosa moist no pallor or jaundice Neck. Neck is supple. Lungs. Nonlabored breathing, lungs are clear to auscultation Heart. First and second heart sounds heard no murmurs Abdomen. Full and moves with respiration Extremities. 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 Cranial nerves 2 to 12 grossly intact. Medical Records Data Attestation: I reviewed the patient's medical records Lab / Micro Data Attestation: I reviewed the patient's lab results. 10/30/23 14:36 10/30/23 14:36 Labs: Laboratory Results - last 24 hr 11/11/23 10:50: POC Glucose 46 L 11/11/23 12:07: POC Glucose 218 H 11/11/23 13:06: POC Glucose 156 H 11/11/23 14:14: POC Glucose 152 H ABG Data Attestation: I personally reviewed and interpreted this ABG as follows: Imaging Radiology Impression Lumbar Spine X-Ray 11/11/23 11:50 IMPRESSION: Intraoperative fluoroscopic services provided for localization of the L5-S1 disc space level. Electronically Signed: Gregg Waldron MD at 14:51 EDT , Charges/Coding Visit Charges Inpatient E&M: 84263 Init Hosp L3
[2023-11-11] MEDS: Senna/Docusate Sodium 1 Tablet 2 TABLET PO (21:31)
[2023-11-12 00:02] VITALS: BP 110/80; PULSE 74; RESP 16; TEMP 36.7; O2SAT 94
[2023-11-12] MEDS: Methocarbamol 500 MG Tablet 1000 MG PO ×2 (00:05→12:18)
[2023-11-12] MEDS: Cefazolin 2 GM in 0.9% Normal Saline (100mL Bag) 100 ML IV (03:43)
[2023-11-12 06:12] VITALS: BP 104/77; PULSE 66; RESP 16; TEMP 36.6; O2SAT 92
[2023-11-12] MEDS: Ketorolac 15 MG/ML Vial IV (06:21)
[2023-11-12] MEDS: Acetaminophen 500 MG Tablet 1000 MG PO (06:21)
[2023-11-12 07:07] LABS: Hematocrit 50.3 % (40-54); Hemoglobin 16.2 g/dL (13.0-16.5); Mean Corp Hgb Conc 32.2 g/dL (32-36); Mean Corpuscular Hgb 29.4 pg (27.0-32.0); Mean Corpuscular Volume 91.3 fL (80-94); Mean Platelet Vol. 10.6 fl (6.2-12.0); Platelet Count 191 K/mm3 (150-450); RBC Distribution Width CV 13.8 % (11.6-14.6); RBC Distribution Width SD 46.8 fl (35.1-43.9); Red Blood Count 5.51 M/mm3 (4.6-6.2); White Blood Count 14.6 K/mm3 (4.4-11.0)
[2023-11-12 07:33] LABS: Anion Gap 3 (5-15); BUN 19 mg/dL (7-18); BUN/Creat Ratio 16.2 RATIO (10-20); Calcium,Total 8.6 mg/dL (8.5-10.1); Chloride 109 mmol/L (98-107); Creatinine, Serum 1.17 mg/dL (0.70-1.30); EST Glomerular Filtration Rate 68 mL/min (>60); Est Glom Filt Rate - Afr Amer 83 mL/min (>60); Estimated Creatinine Clearance 79.87 ml/min; Glucose 129 mg/dL (74-106); Potassium 4.3 mmol/L (3.5-5.1); Sodium Level 138 mmol/L (136-145)
[2023-11-12 08:18] VITALS: BP 115/78; PULSE 64; RESP 15; TEMP 36.4; O2SAT 95
--- NOTE | 2023-11-12 09:26 | CASEMGMT ---
EUNICE VILLALBA Assessment: Face to Face with pt for initial transition planning/care coordination assessment. EUNICE VILLALBA introduced self and role at [facility], pt voices understanding and consents to assessment. Pt is A&O x4 and answers all questions appropriately at this time. Pt sitting up in bed in no distress. Care providers, pharmacy, and demographics verified/updated. Admitting Dx: lumbar laminectomy L4-5 and L5-S1 left PCP:Erica Junior BUSINESS OFFICE ASSISTANT Specialists:Nishant ortho; donna Romero mgmt Preferred Pharmacy: [facility] Insurance: [employer] Prescription Benefit: yes LNOK: Tab [place], sig other Living Arrangements: Pt lives with sig other in a two story home with 16 steps to enter. Pt reports he is I in ADL's and denies concerns at home. Transportation: Pt drives self and denies concerns with transportation. Pt sig other will transport pt until he can drive again. DME:none; pt reports he can borrow a walker from [facility] if he needs it HHC/SNF: Denies hx of Pt states no concerns with going home at time of dc. Pt has been ambulating the halls per his report without AD. Pt states no further concerns/needs. CM to follow. Advised pt to ask CM if any further question/concerns/needs arise, voices understanding. Pt Goal:Home Plan: Home Francois DAWSON CM
--- NOTE | 2023-11-12 10:26 | PCM.PROGNOTE ---
Subjective Subjective Patient seen and examined. He had no active complaints. Pain is well controlled. Review of systems is othewise negative. Objective Data Objective Data Vital Signs: Vital Signs Temp Pulse Resp BP Pulse Ox O2 Del Method O2 Flow Rate 97.6 F L 64 15 115/78 95 Room Air 4 11/12/23 08:18 11/12/23 08:18 11/12/23 08:18 11/12/23 08:18 11/12/23 08:18 11/12/23 08:18 11/11/23 15:30 Oxygen Flow Rate (L/min) 4 Oxygen Delivery Method Room Air Weight: 207 lb 10.807 oz Body Mass Index (BMI) 30.7 Intake & Output: Intake and Output for Last 24 Hours 11/10/23 11/11/23 11/12/23 23:59 23:59 23:59 Intake Total 2288 / 2288 810 / 810 Balance 2288 / 2288 810 / 810 Lab / Micro Data 11/12/23 06:41 11/12/23 06:41 Labs: Laboratory Results - last 24 hr 11/11/23 10:50: POC Glucose 46 L 11/11/23 12:07: POC Glucose 218 H 11/11/23 13:06: POC Glucose 156 H 11/11/23 14:14: POC Glucose 152 H 11/12/23 06:41: WBC 14.6 H, RBC 5.51, Hgb 16.2, Hct 50.3, MCV 91.3, MCH 29.4, MCHC 32.2, RDW Std Deviation 46.8 H, RDW Coeff of Usha 13.8, Plt Count 191, MPV 10.6, Sodium 138, Potassium 4.3, Chloride 109 H, Carbon Dioxide 26.0, Anion Gap 3 L, BUN 19 H, Creatinine 1.17, Estim Creat Clear Calc 79.87, Est GFR (MDRD) Af Amer 83, Est GFR (MDRD) Non-Af 68, BUN/Creatinine Ratio 16.2, Glucose 129 H, Calcium 8.6 Micro: Microbiology 11/05/23 15:35 Swab (Method) Nasal Screen MRSA/MSSA - Final Radiography Diagnostic Testing: Radiology Impression Lumbar Spine X-Ray 11/11/23 11:50 IMPRESSION: Intraoperative fluoroscopic services provided for localization of the L5-S1 disc space level. Electronically Signed: Gregg Waldron MD at 14:51 EDT , Physical Exam Const alert, oriented x3, no apparent distress and well nourished General Appearance: cooperative and well developed HEENT normocephalic, head/scalp atraumatic, moist oral mucous membranes and oropharynx normal Eyes PERRL and EOMs intact bilaterally Neck no lymphadenopathy and supple Lymph Lymphatic: no lymphadenopathy noted and no lymphedema noted Resp normal respiratory effort, normal air movement and clear to auscultation bilaterally Cardio regular rate, regular rhythm, S1 normal heart sound, S2 normal heart sound and no murmurs GI normal to inspection, nondistended, normoactive bowel sounds, soft to palpation, non-tender and non-distended Extremity normal capillary refill, no clubbing, cyanosis or edema and no calf tenderness General Extremity: no tenderness to palpation of joints or extremities Skin Skin Narrative: intact dressing over surgical site General Skin Exam: no breakdown Neuro CN's II-XII intact bilaterally, no focal motor deficits, no sensory deficits noted and deep tendon reflexes 2+ bilaterally Motor Exam: strength 5/5 throughout and general weakness Psych thought process normal, cooperative and affect normal Appearance: appropriate Assessment & Plan Assessment/Plan (1) Lumbar radiculopathy, chronic: (2) S/P lumbar fusion: PLAN: Plan #Lumbar spondylosis s/p decompressive laminectomy of L4-5 ad L5-S1. Today is POD 1 management as per primary service spine surgery incentive spirometry. PT/OT on board fall precautions #PUD due to prior NSAID use. PO protonix. DVT prophylaxis: as per primary service. SCDs Charges/Coding Visit Charges Inpatient E&M: 59109 Subs Hosp L2
[2023-11-12] MEDS: Magnesium Chloride 64 MG Delay Rel.Tablet 128 MG PO (10:29)
[2023-11-12] MEDS: Senna/Docusate Sodium 1 Tablet 2 TABLET PO (10:31)
[2023-11-12] MEDS: Meloxicam 15 MG Tablet PO (10:31)
[2023-11-12] MEDS: 0.9% Saline Lock 10 ML Syringe IV (10:42)
[2023-11-12] MEDS: Ondansetron 4 MG/2 ML Vial IV (10:42)
--- NOTE | 2023-11-12 13:19 | PCM.PN.ORT ---
Subjective Subjective Postop day 1 status post L4-S1 left laminotomies decompression. Patient doing well. Pain well-controlled. Ambulated well. Objective Data Objective Data Vital Signs: Vital Signs Temp Pulse Resp BP Pulse Ox O2 Del Method O2 Flow Rate 97.6 F L 64 15 115/78 95 Room Air 4 11/12/23 08:18 11/12/23 08:18 11/12/23 08:18 11/12/23 08:18 11/12/23 08:18 11/12/23 08:18 11/11/23 15:30 Oxygen Flow Rate (L/min) 4 Oxygen Delivery Method Room Air Weight: 207 lb 10.807 oz Body Mass Index (BMI) 30.7 Intake & Output: Intake and Output for Last 24 Hours 11/10/23 11/11/23 11/12/23 23:59 23:59 23:59 Intake Total 2288 / 2288 810 / 810 Output Total 600 / 600 Balance 2288 / 2288 210 / 210 Lab / Micro Data 11/12/23 06:41 11/12/23 06:41 Labs: Laboratory Results - last 24 hr 11/11/23 10:50: POC Glucose 46 L 11/11/23 13:06: POC Glucose 156 H 11/11/23 14:14: POC Glucose 152 H 11/12/23 06:41: WBC 14.6 H, RBC 5.51, Hgb 16.2, Hct 50.3, MCV 91.3, MCH 29.4, MCHC 32.2, RDW Std Deviation 46.8 H, RDW Coeff of Usha 13.8, Plt Count 191, MPV 10.6, Sodium 138, Potassium 4.3, Chloride 109 H, Carbon Dioxide 26.0, Anion Gap 3 L, BUN 19 H, Creatinine 1.17, Estim Creat Clear Calc 79.87, Est GFR (MDRD) Af Amer 83, Est GFR (MDRD) Non-Af 68, BUN/Creatinine Ratio 16.2, Glucose 129 H, Calcium 8.6 Micro: Microbiology 11/05/23 15:35 Swab (Method) Nasal Screen MRSA/MSSA - Final Radiography Diagnostic Testing: Radiology Impression Lumbar Spine X-Ray 11/11/23 11:50 IMPRESSION: Intraoperative fluoroscopic services provided for localization of the L5-S1 disc space level. Electronically Signed: Gregg Waldron MD at 14:51 EDT , Physical Exam Narrative Dressing?CDI. Neurologic evaluation of lower extremity shows 5 x 5 power normal shows normal sensations in all dermatomes. Assessment & Plan Assessment/Plan (1) Status post lumbar laminectomy: PLAN: Plan Postop day 1 status post lumbar laminotomy. Patient doing well. Pain well-controlled. PT cleared. Okay to discharge home and follow-up in 1-2 weeks. No lifting bending twisting.
[2023-11-12 13:41] VITALS: BP 124/79; PULSE 65; RESP 16; TEMP 36.3; O2SAT 96
--- NOTE | 2023-11-12 14:39 | PHA.DC.MR.R ---
Pharmacy [place] Med Reconciliation Pharmacy Service has performed discharge medication reconciliation for this patient. Medication education papers prepared, patient discharged when counseling was attempted by student services representative, Agustina. Medications reviewed. The patient's discharge medication list was reviewed for discrepancies and discrepancies were resolved. Medications at Discharge Home Medications diclofenac sodium 1 % topical gel 2 g topical DAILY PRN Pain Or Fever 03/31/18 omeprazole 40 mg capsule,delayed release 40 mg PO DAILY 05/27/18 meloxicam 15 mg tablet 15 mg PO DAILY PRN 03/25/22 nabumetone 750 mg tablet 750 mg PO PRN 03/25/22 magnesium 250 mg tablet 250 mg PO DAILY 10/30/23 vitamin C 45 mg-zinc citrate 3.75 mg-elderberry 50 mg chewable tablet ([employer]) 1 tab PO DAILY 10/30/23 acetaminophen 500 mg tablet 500 mg PO Q6H 7 days #28 tabs 11/12/23 methocarbamol 500 mg tablet 750 mg (1.5 x 500 mg) PO TID PRN Pain/spasms 5 days #20 tabs 11/12/23 oxycodone 5 mg tablet 2.5 - 5 mg (0.5 - 1 x 5 mg) PO Q6H PRN pain 5 days #20 tabs 11/12/23 sennosides 8.6 mg-docusate sodium 50 mg tablet (Stool Softener-Stimulant Laxative) 2 tab PO BID PRN constipation 5 days #20 tabs 11/12/23
== END 2023-11-12 14:19 | disposition home or self-care (01) ==
LOC: SDC 14:19 → MS3 14:20
PROVIDERS: Anesthesiology; Admitting Provider Orthopaedic Surgery Orthopaedic Surgery of the Spine; PCP Nurse Practitioner Family; Referring Provider Orthopaedic Surgery Orthopaedic Surgery of the Spine; Visit Provider Orthopaedic Surgery Orthopaedic Surgery of the Spine
PROC: (CPT 63030; principal; 2023-11-11 10:30)
DX: M51.16 Intervertebral disc disorders with radiculopathy, lumbar region (principal); M48.061 Spinal stenosis, lumbar region without neurogenic claudication; M48.07 Spinal stenosis, lumbosacral region; Z87.891 Personal history of nicotine dependence; M47.26 Other spondylosis with radiculopathy, lumbar region; Z79.899 Other long term (current) drug therapy; Z98.1 Arthrodesis status; Z87.11 Personal history of peptic ulcer disease
CPT/HCPCS: 63030; 63035; 00630; J2405; 36415; 72100; 76000; 80048; 82962; 83735; 85025; 85027; 86703; 86706; 86708; 86803; 86850; 86900; 86901; 87077; 87081; 94668; 96365; 96366; 96375; 96376; 97162; 97166; 99221; J7120; A4216; G0378; J2310; J3475

== ENCOUNTER 2024-12-01 14:46 | Emergency (ER) | payer MEDICAID, SELFPAY ==
[2024-12-01 14:47] VITALS: BP 114/94; PULSE 103; RESP 18; TEMP 36.4; O2SAT 96; BMI 30.9
--- NOTE | 2024-12-01 15:12 | EKG12_ITS ---
Test Reason : CP Blood Pressure : */* mmHG Vent. Rate : 89 BPM Atrial Rate : 89 BPM P-R Int : 150 ms QRS Dur : 76 ms QT Int : 336 ms P-R-T Axes : 59 -41 40 degrees QTcB Int : 408 ms Normal sinus rhythm Left axis deviation Abnormal ECG Confirmed by CRAIG HAYNES, TIFFANIE ([id number]), editor & co founder ADRIA GRAFF ([id number]) on 12/02/2024 10:05:31 AM Referred By: Confirmed By: TIFFANIE SRINIVASAN MD
--- NOTE | 2024-12-01 15:12 | RAD_ITS ---
PROCEDURE: CHEST PA AND LATERAL 12/01/2024 REASON FOR EXAM: RIGHT-SIDED CHEST PAIN, PLEURITIC, DYSPNEA WITH EX TECHNIQUE: CHEST PA AND LATERAL COMPARISON: Chest x-ray of 08/12/2022. RAD/Chest PA and Lateral IMPRESSION: Lungs appear clear. No pleural effusion or pneumothorax is noted. The cardiomediastinal silhouette is within the normal range. No acute osseous change is seen. No evidence of acute cardiopulmonary disease. Reading Location: [place] [address]
--- NOTE | 2024-12-01 15:12 | RAD_ITS ---
PROCEDURE: CHEST PA AND LATERAL 12/01/2024 REASON FOR EXAM: RIGHT-SIDED CHEST PAIN, PLEURITIC, DYSPNEA WITH EX TECHNIQUE: CHEST PA AND LATERAL COMPARISON: Chest x-ray of 08/12/2022. RAD/Chest PA and Lateral IMPRESSION: Lungs appear clear. No pleural effusion or pneumothorax is noted. The cardiomediastinal silhouette is within the normal range. No acute osseous change is seen. No evidence of acute cardiopulmonary disease. Reading Location: [place] [address]
--- NOTE | 2024-12-01 15:12 | EKG12_ITS ---
Test Reason : CP Blood Pressure : */* mmHG Vent. Rate : 89 BPM Atrial Rate : 89 BPM P-R Int : 150 ms QRS Dur : 76 ms QT Int : 336 ms P-R-T Axes : 59 -41 40 degrees QTcB Int : 408 ms Normal sinus rhythm Left axis deviation Abnormal ECG Confirmed by CRAIG HAYNES, TIFFANIE ([id number]), photographic editor ADRIA GRAFF ([id number]) on 12/02/2024 10:05:31 AM Referred By: Confirmed By: TIFFANIE SRINIVASAN MD
--- NOTE | 2024-12-01 15:25 | ED.VIS.CHEST ---
HPI History of Present Illness Chief Complaint: Chest Pain Detail of Chief Complaint: Right-sided chest pain Informant: patient and spouse/S.O. Onset/Context/Timing Onset: Month(s) (Greater than 1 month) Activity at onset: sudden and other (Breathing and exertion) Timing: Continuous and Intermittent Quality: Positive for Sharp Location: Right Parasternal (Between the areola and sternum) Current Severity: Mild Maximum Severity: Severe Worsened By: Palpation and Breathing; Not Worsened By Exertion, Movement of Arm, Movement of Torso, Eating or Coughing Relieved By: Nothing (Presently nothing) Associated Symptoms: Negative for Nausea, Vomiting, Diaphoresis, Dyspnea, Cough, Fever, Lightheadedness, Acid Reflux or Palpitations Narrative Narrative: Patient is a 59-year-old male. He is a former smoker. He has no known coronary disease. Members had cardiac disease at an early age. He has no history of VTE. He has no risk factors for VTE. States this morning he took a potassium tablet, magnesium tablet and omeprazole. He denies leg pain, swelling or discoloration. He does complain of numbness right side L3-L4 dermatome due to remote back surgery. He states he had pain similar to this and had a cardiac workup approximately 6 years ago with a cardiac catheterization and nuclear stress. The cardiac catheterization revealed minimal disease. He states he follow-up with Dr. Hammer and it was determined the cause of his pain was his gallbladder. His dates for his gallbladder did not coincide however with dates given for cardiac catheterization and stress test. There is a discrepancy of 2 years. Patient states the pain radiates to the left side when take a deep breath. Also at times radiates inferior along the anterior axillary line. He has not noted a rash. He denies trauma. He denies weight gain or weight loss. He does report sweats. He denies change in color, consistency or caliber of his stool. Prior Similar Symptoms: Yes (Per patient gallbladder) Recent Illness/Hospitalization: No CVD Risk Factors: Positive for Smoking (Quit 15 years ago); Negative for Hypertension, Diabetes, Hypercholesterolemia or Family History 1' </=55 PE Risk Factors: Negative for Recent Travel/Surgery, Recent Immobilization, Prior DVT or PE, Cancer or OCP + Smoking + >/=35 TAD Risk Factors: Negative for Marfan's Syndrome, Hypertension or Family History [facility] Medical History Back pain Bilateral primary osteoarthritis of knee Arthritis Ureterolithiasis Heartburn Home Medications ?Medication ?Instructions ?Recorded ?Last Taken ?Type omeprazole 40 mg capsule,delayed 40 mg PO DAILY 05/27/18 11/11/23 07:30 History release prednisone 20 mg tablet 60 mg (3 x 20 mg) PO DAILY #15 12/01/24 Unknown Rx TABLETS Allergy/AdvReac Type Severity Reaction Status Date / Time cyclobenzaprine (From Allergy Mild flushed Verified 12/01/24 14:48 Flexeril) adhesive tape AdvReac BLISTERS Verified 12/01/24 14:48 SKIN hydrocodone (From Vicodin) AdvReac Nausea Verified 12/01/24 14:48 Family History Father Heart disease Surgical History H/O shoulder surgery History of lumbar spinal fusion h/o gallbladder removed Heart Catheterization finger tendon Social History (Updated 12/01/24 @ 14:56 by Whit Sheridan) household members: spouse Smoking Status: Former smoker quit date: 06/02/09 alcohol intake: current alcohol intake frequency: holidays/special occasions only ROS ROS ED Constitutional Constitutional ED: Reports sweats; Denies chills, fever(s), subjective or weight loss Eyes Eyes: Reports none ENT ENT ED: Denies ear pain or rhinorrhea Cardiovascular Cardiovascular: Reports as per HPI; Denies orthopnea or paroxysmal nocturnal dyspnea Respiratory/Chest Respiratory/Chest: Reports dyspnea on exertion and other Details: Pleuritic chest pain ; Denies cough, dyspnea, orthopnea, paroxysmal nocturnal dyspnea or sputum Gastrointestinal Gastrointestinal: Denies abdominal pain, constipation, diarrhea, melena, nausea or vomiting Musculoskeletal Musculoskeletal: Reports back pain and other Details: Pain reports pain near the angle of the right scapula. ; Denies arthralgias or myalgias Integumentary Denies rash Neurologic Neurologic: Denies headache(s) or paresthesias Hematologic/Lymphatic Hematologic/Lymphatic: Denies easy bleeding or easy bruising EXAM Physical Exam Const Vital Signs: 12/01/24 14:47 12/01/24 14:54 12/01/24 15:45 Temperature 97.5 F L Temperature Source Oral Pulse Rate 103 H 83 Respiratory Rate 18 19 H Respiratory Effort Normal Non-Labored Blood Pressure 114/94 H 123/89 H Blood Pressure Mean 100 99 Pulse Ox 96 93 Oxygen Delivery Method Room Air 12/01/24 16:00 Temperature Temperature Source Pulse Rate 71 Respiratory Rate 19 H Respiratory Effort Blood Pressure 132/89 H Blood Pressure Mean 103 Pulse Ox 94 Oxygen Delivery Method Positive well nourished and well developed Constitutional Narrative: Blood pressure is slightly elevated. Heart rate is slightly elevated. General Appearance ED: well developed and NAD; Negative for pallor HEENT Reports moist mucous membranes normocephalic and atraumatic Eyes PERRL and EOMs intact bilaterally General Eye ED: Negative for pale conjunctiva or scleral icterus Neck no lymphadenopathy, supple and no JVD Neck Narrative: Trachea is midline. There is no stridor. There is no carotid bruits. Chest Wall inspection of chest normal and palpation of chest normal Resp normal respiratory effort and clear to auscultation bilaterally Effort and Inspection: Negative for respiratory distress or pain with movement Auscultation: Negative for rales, rhonchi, wheezes or diminished lung sounds Cardio regular rate, regular rhythm, S1 normal heart sound, S2 normal heart sound and no murmurs Peripheral Pulses: pulses 2+ throughout GI normal to inspection, nondistended, normoactive bowel sounds, soft to palpation, non-tender, non-distended and no masses; Negative for hepatosplenomegaly Back/Spine no CVA tenderness and no thoracic nor lumbar tenderness Extremity normal to inspection Extremity Narrative: There is no asymmetry, swelling, discoloration, leg vein distention, palpable cords or tenderness along the distribution of the deep venous system. General Extremety ED: Negative for other findings General Extremity: Negative for other findings Neuro oriented x3 and CN's II-XII intact bilaterally Sensorium / Orientation: awake and alert Motor Exam: strength 5/5 throughout Psych mental status grossly normal Skin no rashes or lesions noted and no wounds General Skin Exam: Negative for jaundice or pallor Trauma: Negative for abrasion MDM MDM MDM Narrative Medical decision making narrative: Pleuritic chest pain need to consider pulmonary embolus, pleurisy, pneumonia, and with history of night sweats need to potentially consider neoplasm's especially since he was a smoker until 15 years ago. D-dimer was up obtained to assess for PE since he is not PERC negative. History is not consistent with cardiac. Doubt this is choledocholithiasis since he states this was similar to the pain he experienced prior to the removal of his gallbladder. His workup included an EKG, chest x-ray, CBC, comprehensive metabolic panel and D-dimer. 1 troponin was obtained in the event this is an atypical chest pain especially since the onset was greater than month ago. History & Record Review Additional record(s) reviewed:: Prior outpatient record (Office visit by Dr. Levin third July 01. This was for evaluation of lumbar spine. Assessment was status post lumbar laminectomy, other intervertebral disc degeneration, lumbar fusion, sacral colitis) and Other (External correspondence that was a physical therapy outpatient notes. This was authored on July 01, 2024 as well.) Lab Data Attestation: I reviewed the patient's lab results. Lab results narrative: CBC does not elevated hemoglobin. White count is normal. D-dimer is normal at 0.31. Troponin is normal. With symptoms of a month this would rule out cardiac etiology. BUN and creatinine are elevated 26 and 1.37. Prior BUN/creatinine were 19 and 1.17. Creatinine has been normal dating back to January 2022. December 2021 creatinine was as high as 1.85. Patient apparently is been outside a lot. He believes he is drinking enough fluids he said he is drinking a half a gallon of water. Patient was told he needs to drink more based on his laboratory results. He will need to follow-up with his doctor for outpatient testing. Since he does have evidence of acute renal insufficiency we will treat his pleuritic chest pain with prednisone. Labs: Laboratory Results - last 24 hr 12/01/24 15:00 WBC 7.7 RBC 6.01 Hgb 17.9 H Hct 53.1 MCV 88.4 MCH 29.8 MCHC 33.7 RDW Std Deviation 45.1 H RDW Coeff of Usha 14.2 Plt Count 211 MPV 11.0 Immature Gran % (Auto) 0.400 Neut % (Auto) 73.3 H Lymph % (Auto) 16.8 L [place] % (Auto) 8.8 Eos % (Auto) 0.3 Baso % (Auto) 0.4 Absolute Neuts (auto) 5.7 Absolute Lymphs (auto) 1.30 Nucleated RBC % 0 D-Dimer Quant (PE/DVT) 0.31 Sodium 143 Potassium 4.4 Chloride 109 H Carbon Dioxide 22.4 Anion Gap 11 BUN 26 H Creatinine 1.37 H Estim Creat Clear Calc 67.68 Est GFR (MDRD) Non-Af 60 BUN/Creatinine Ratio 19.0 Glucose 95 Calcium 9.2 Total Bilirubin 0.68 AST 29 ALT 16 Alkaline Phosphatase 124 Troponin T High Sens 9 Total Protein 6.6 Albumin 4.2 Globulin 2.4 Albumin/Globulin Ratio 1.7 Radiography Chest X-Ray - ED: 2 View and Read by ED Physician (2 view chest x-ray reveals normal cardiac silhouette and size. Lung parenchyma is unremarkable. There is no evidence of effusion. Hilum is normal. Osseous structures reveal no acute process.) Diagnostic Testing: Clinical Impression(s) from Imaging Studies Chest X-Ray 12/01/24 15:12 IMPRESSION: Lungs appear clear. No pleural effusion or pneumothorax is noted. The cardiomediastinal silhouette is within the normal range. No acute osseous change is seen. No evidence of acute cardiopulmonary disease. Reading Location: [place] [id number] EKG Initial EKG: Attestation: I personally reviewed and interpreted this EKG as follows: Interpretation: Sinus Rhythm (Rate is 89. [place] to the left. [place] interval is 150 ms QRS duration is 76 ms QT duration 336 ms.) Differential Diagnosis Chest pain/SOB: pulmonary embolism Reason(s) PE less likely: Positive for Well's <3, D-Dimer negative, not tachycardic and not hypoxic, ACS ACS: Positive for no evidence of ACS based on cardiac biomarkers, EKG without ischemia and history not suggestive of ischemia pain, pneumothorax Reason(s) pneumothorax less likely: Positive for bilateral breath sounds and [employer]ISE withhout PTX, pneumonia Reason(s) pneumonia less likely: Positive for no infiltrate on CXR, no elevation in WBC count, no noted fever and symptoms not consistent with acute infection, aortic dissection Reason(s) Aortic dissection less likely:: Positive for normal vascular exam, normal neurological exam, no significant risk factors for dissection, no widened mediastinum on CXR, pain not sudden onset, no ripping/tearing pain, no pain to back, blood pressure appropriate in ED and other (D-dimer is normal. Sensitivity is 99+ percent), CHF Reason(s) CHF less likely: Positive for no significant peripheral edema, no orthopnea and no evidence of fluid overload on CXR and COPD Reason(s) COPD less likely: Positive for no significant wheezing on exam, no tachypnea, no conversational dyspnea and normal air movement noted on auscultation on lungs Discharge Plan Triage Chief Complaint: Chest Pain ED Provider: Leonard Duran Dx/Rx/DC Orders Clinical Impression: Chest pain, pleuritic, Acute kidney insufficiency, Acute prerenal azotemia, Elevated blood-pressure reading without diagnosis of hypertension Instructions: ED Hypertension, To Be Confirmed, ED Pleurisy, ED Renal Insufficiency Prescriptions: New prednisone 20 mg tablet 60 mg PO DAILY Qty: 15 0RF No Action omeprazole 40 MG capsule,delayed release(DR/EC) 40 mg PO DAILY Primary Care Provider: Erica Junior NP Referrals: Erica Junior NP, JUNIOR SYSTEMS ADMINISTRATOR-C [Primary Care Provider] - 1-2 Weeks Activity Restrictions/Additional Instructions: You need to follow-up with nurse practitioner [place] for blood pressure check in 1 to 2 weeks and blood work to assess your kidney function. You need to increase your fluid intake especially when you are outside doing yard work/gardening etc. Print Language: Polish Disposition Disposition: Home, Self Care
[2024-12-01 15:45] VITALS: BP 123/89; PULSE 83; RESP 19; O2SAT 93
[2024-12-01 15:46] LABS: Hematocrit 53.1 % (40-54); Hemoglobin 17.9 g/dL (13.0-16.5); Immature Granulocytes Count 0.030 X10^3/uL (0.0-0.0); Mean Corp Hgb Conc 33.7 g/dL (32-36); Mean Corpuscular Volume 88.4 fL (80-94); Mean Platelet Vol. 11.0 fl (6.2-12.0); NRBC Flagged by Analyzer 0 % (0-5); Platelet Count 211 K/mm3 (150-450); RBC Distribution Width CV 14.2 % (11.6-14.6); RBC Distribution Width SD 45.1 fl (35.1-43.9); Red Blood Count 6.01 M/mm3 (4.6-6.2); White Blood Count 7.7 K/mm3 (4.4-11.0)
[2024-12-01 16:00] VITALS: BP 132/89; PULSE 71; RESP 19; O2SAT 94
[2024-12-01 16:00] LABS: D-Dimer Quantitative (DVT/PE) 0.31 FEU/ug/m (0.27-0.49)
[2024-12-01 16:16] LABS: AST(SGOT) 29 U/L (<=37); Alanine Aminotransfer ALT/SGPT 16 U/L (<=46); Albumin, Serum 4.2 g/dL (3.5-5.0); Alkaline Phosphatase 124 U/L (40-129); Anion Gap 11 (5-15); BUN 26 mg/dL (4-19); BUN/Creat Ratio 19.0 RATIO (10-20); Calcium,Total 9.2 mg/dL (7.6-11.0); Carbon Dioxide 22.4 mmol/L (21.0-32.0); Chloride 109 mmol/L (98-108); Estimated Creatinine Clearance 67.68 ml/min (50-250); Globulin 2.4 g/dL (2.2-4.2); Glucose 95 mg/dL (70-99); Potassium 4.4 mmol/L (3.3-5.1); Troponin T High Sensitivity 9 ng/L (<=22)
[2024-12-01 17:01] VITALS: BP 134/70; PULSE 65; RESP 16; TEMP 36.6; O2SAT 100
== END 2024-12-01 17:03 | disposition home or self-care (01) ==
PROVIDERS: Emergency Provider Emergency Medicine; PCP Nurse Practitioner Family; Visit Provider Emergency Medicine
DX: R07.1 Chest pain on breathing (principal); R79.89 Other specified abnormal findings of blood chemistry; R03.0 Elevated blood-pressure reading, without diagnosis of hypertension; N28.9 Disorder of kidney and ureter, unspecified; Z87.891 Personal history of nicotine dependence
CPT/HCPCS: 71046; 80053; 84484; 85025; 85379; 93005; 99284

== ENCOUNTER → 2025-02-22 | Outpatient (CLI) | payer MEDICAID, SELFPAY ==
[2025-02-22 19:06] LABS: Anion Gap 13 (5-15); BUN 21 mg/dL (4-19); BUN/Creat Ratio 18.9 RATIO (10-20); Calcium,Total 9.1 mg/dL (7.6-11.0); Carbon Dioxide 23.1 mmol/L (21.0-32.0); Chloride 107 mmol/L (98-108); Glucose 87 mg/dL (70-99); Potassium 4.4 mmol/L (3.3-5.1)
== END | disposition home or self-care (01) ==
LOC: MTLAB 15:44
PROVIDERS: PCP Nurse Practitioner Family; Referring Provider Anesthesiology Pain Medicine; Visit Provider Anesthesiology Pain Medicine
DX: Z79.1 Long term (current) use of non-steroidal anti-inflammatories (NSAID) (principal)
CPT/HCPCS: 36415; 80048